=== PATIENT | female | born 1945 | race Caucasian/White ===

== ENCOUNTER 2021-04-27 16:18 | Inpatient (IN) | payer MEDICARE, MEDICAID, SELFPAY ==
[2021-04-27] VITALS (18 sets, daily range): BP systolic 96–202; BP diastolic 43–79; PULSE 62–79; RESP 16–18; TEMP 36.4–37.4; O2SAT 92–98; BMI 33.3; BMI 34.9
--- NOTE | 2021-04-27 16:55 | HMH.EDGENADL ---
ED Disposition Clinical Impression: COVID-19 virus infection Anemia Qualifiers: Anemia type: unspecified type Qualified Code(s): D64.9 - Anemia, unspecified Disposition: Admitted as Observation Condition on Discharge: Fair Referrals: Provider,Referral, [Primary Care Provider] - - Critical Care Critical Care Time: No Attestation: On 04/27/21, the high probability of a clinically significant, sudden or life threatening deterioration of the following system(s) required my full and direct attention, intervention and personal management. The time I documented below is in addition to time spent performing reported procedures but includes the following listed in this critical care notation. Medical Decision Making - Rudolph Inquiry Pt receiving controlled substance: No Vital Signs: 04/27/21 16:19 04/27/21 16:37 04/27/21 17:00 Temperature 98.6 F Temperature Source Oral Pulse Rate 71 71 Pulse Rate [Right Radial] 71 Respiratory Rate 18 16 16 Blood Pressure 138/47 L 149/53 H Blood Pressure [Right Arm] 138/47 L Blood Pressure Mean 79 85 Blood Pressure Mean [Right Arm] 77 Blood Pressure Source [Right Arm] Automatic Cuff Blood Pressure Position [Right Arm] Sitting 02 Sat by Pulse Oximetry 96 97 97 Oxygen Delivery Method Room Air - Lab Data Lab Results 04/27/21 16:54: WBC 6.4, RBC 2.71 L, Hgb 7.9 L, Hct 24.7 L, MCV 91.3, MCH 29.1, MCHC 31.9, RDW 16.7, Plt Count 342, MPV 8.6, Neut % (Auto) 60.8, Lymph % (Auto) 30.7, [place] % (Auto) 5.0, Eos % (Auto) 2.9, Baso % (Auto) 0.6, Neut # (Auto) 3.9, Lymph # (Auto) 2.0, [place] # (Auto) 0.3, Eos # (Auto) 0.2, Baso # (Auto) 0.0 04/27/21 16:54: Sodium 134 L, Potassium 4.4, Chloride 101, Carbon Dioxide 26, Anion Gap 11.4, BUN 19 H, Creatinine 0.90, Estimated Creat Clear 64, Estimated GFR 61, Est GFR ( Amer) 74, Glucose 196 H, Calcium 8.3 L, Total Bilirubin 0.5, AST 32, ALT 17, Alkaline Phosphatase 129 H, Total Protein 6.1 L, Albumin 3.4 L, Globulin 2.7, Albumin/Globulin Ratio 1.3 04/27/21 16:54: Crossmatch (AHG) See Detail 04/27/21 17:00: Stool Occult Blood Negative Result diagrams: 04/27/21 16:54 04/27/21 16:54 Orders (Tests/Meds): ED MEDICATIONS Generic Name Dose Route Start Last Admin Trade Name Nakia PRN Reason Stop Dose Admin Sodium Chloride 250 mls @ 25 mls/hr 04/27/21 17:30 Sod Chlor 0.9% 250ml Bag IV 04/28/21 17:29 .Q10H ZEFERINO ORDERS Category Date Time Status PRBC [Red Blood Cells] Stat BBK 04/27/21 16:54 Received Type and Screen Stat BBK 04/27/21 16:54 Received PT/PTT Stat Lab 04/27/21 16:54 Received - Physician Consults Physician Consulted: Escobar - present Time: 17:34 Reason -: Admission Comment/Response: Agrees to admit the patient to the hospital. We discussed the patient's clinical information, including history, exam, laboratory and radiology results and ED course. Per hospital procedure, I will write temporary bridge inpatient orders on the patient. Specific orders requested by the admitting physician: Transfuse 3 units packed red blood cells General Adult HPI - General Stated complaint: covid + anemia Time Seen by Provider: 04/27/21 16:55 - History of Present Illness HPI narrative: Brought in by ambulance from [facility] for anemia; Dr. Cody requested that she be transferred here and transfused 3 units of packed red blood cells. She was just admitted there yesterday. She says that she has had 2 recent admissions to [facility] in [facility]. Initially she had a broken shoulder which required surgery. She then went home and was returned because of dyspnea on exertion. She was diagnosed with pneumonia. She also says that when she was admitted to [facility] she was tested for COVID and it was positive. Prior to that she had not been diagnosed with COVID. She denies hematemesis. She has had dark stool, but says that she was started on iron a couple weeks a
--- NOTE | 2021-04-27 17:07 | PC.NURSE ---
assisted MD with rectal exam
[2021-04-27 17:09] LABS: Basophils % 0.6 % (0.1-2.0); Chloride 101 mmol/L (98-107); Eosinophils # 0.2 K/mm3 (0.0-0.4); Eosinophils % 2.9 % (0.1-12.0); Hematocrit 24.7 % (37.0-47.0); Hemoglobin 7.9 g/dL (12.2-16.2); Lymphocytes % 30.7 % (10-50); Mean Corpuscular HGB Conc 31.9 g/dL (31.8-35.4); Mean Corpuscular Hemoglobin 29.1 pg (27.0-31.2); Mean Corpuscular Volume 91.3 fl (81-99); Mean Platelet Volume 8.6 fl (7.4-10.4); Monocytes # 0.3 K/mm3 (0.1-1.0); Neutrophils # 3.9 K/mm3 (1.8-7.8); Neutrophils % 60.8 % (37.0-80.0); Platelet Count 342 K/mm3 (142-424); Potassium 4.4 mmoL/L (3.5-5.1); Red Blood Count 2.71 M/mm3 (4.20-5.40); Red Cell Distribution Width 16.7 % (11.5-17.5); Sodium 134 mmol/L (136-145); White Blood Count 6.4 K/mm3 (4.8-10.8)
[2021-04-27 17:12] LABS: Alanine Aminotransferase 17 U/L (12-78); Albumin Level 3.4 g/dl (3.5-5.0); Albumin/Globulin Ratio 1.3 (1.1-1.8); Alkaline Phosphatase 129 U/L (38-126); Anion Gap 11.4 mEq/L (5-15); Aspartate Amino Transferase 32 U/L (14-36); Bilirubin,Total 0.5 mg/dl (0.2-1.3); Blood Urea Nitrogen 19 mg/dl (7-17); Carbon Dioxide 26 mmol/L (22.0-30.0); Creatinine Clearance Estimated 64 mL/min (50-200); Estimated Glomerular Filt Rate 61 ml/min (>60); GFR (African American) 74 ML/MIN (>60); Globulin 2.7 g/dL (1.3-3.2); Total Protein,Serum 6.1 g/dl (6.3-8.2)
[2021-04-27 17:13] LABS: Calcium 8.3 mg/dl (8.4-10.2); Glucose 196 mg/dl (74-100)
[2021-04-27 17:33] LABS: Occult Blood,Stool Negative (Negative)
--- NOTE | 2021-04-27 17:34 | PC.NURSE ---
Dr. Cody at BS
--- NOTE | 2021-04-27 17:37 | PC.NURSE ---
notified bathhouse attendant of admission
--- NOTE | 2021-04-27 17:38 | XR_ITS ---
PROCEDURE INFORMATION: Exam: XR Chest Exam date and time: 04/27/2021 5:38 PM Age: 75 years old Clinical indication: Cough and shortness of breath; Additional info: Covid, pneumonia TECHNIQUE: Imaging protocol: XR of the chest. Views: 1 view. Total images: 1 COMPARISON: No relevant prior studies available. FINDINGS: Tubes, catheters and devices: Spinal stimulator lead pad in the midthoracic region without gross complication. Lungs: Pulmonary vasculature grossly normal. Mild interstitial prominence and faint ground-glass attenuation in the right perihilar and basilar distribution suspicious for pneumonia versus edema or atelectasis. Pleural spaces: No pleural effusion. No pneumothorax. Heart/Mediastinum: Heart size within normal limits for portable AP technique. No tracheal/mediastinal shift. Bones/joints: Bilateral shoulder arthroplasty hardware without gross complication. No acute osseous abnormalities are identified. Osteopenia. IMPRESSION: Interstitial and alveolar opacities in the right base and mid lung concerning for pneumonia versus edema or atelectasis.
[2021-04-27 17:40] LABS: Activated Partial Thrombo Time 28.3 seconds (22.8-30.6); INR 1.01 (0.9-1.1); Prothrombin Time 11.4 seconds (10.1-12.5)
[2021-04-27 17:54] LABS: Influenza A, PCR Not Detected (NotDetected); Influenza B, PCR Not Detected (NotDetected)
[2021-04-27 18:01] LABS: Lipase 80 U/L (23-300)
--- NOTE | 2021-04-27 18:06 | PC.NURSE ---
1740 bed assignment requested, room 201. all staff notified
[2021-04-27 18:12] LABS: Iron 28 ug/dL (37-170)
--- NOTE | 2021-04-27 18:16 | PC.NURSE ---
per lab approx 11 minutes left on pts covid swab.
--- NOTE | 2021-04-27 18:17 | PC.NURSE ---
per lab pt blood is ready for transfusion
[2021-04-27 18:21] LABS: Total Iron Binding Capacity 298 ug/dL (265-497)
[2021-04-27 18:29] LABS: Coronavirus 19, PCR Detected (NotDetected)
[2021-04-27 19:08] LABS: Vitamin B12 553 pg/mL (239-931)
[2021-04-27 19:12] LABS: Folate > 20.00 ng/mL
--- NOTE | 2021-04-27 20:32 | PC.NURSE ---
Report called to TEJA Logan at this time
--- NOTE | 2021-04-27 21:21 | PC.NURSE ---
PT ARRIVED TO FLOOR VIA STRETCHER FROM ED W/STAFF @ [id number]
[2021-04-28] VITALS (48 sets, daily range): BP systolic 83–226; BP diastolic 34–81; PULSE 51–94; RESP 0–35; TEMP 36.4–38.1; O2SAT 82–100; BMI 35.4; BMI 35.3
[2021-04-28 00:22] LABS: POC Glucose,Bedside 179 (70-110)
--- NOTE | 2021-04-28 00:35 | PC.NURSE ---
Patient receiving second unit of blood. Blood bag came apart from secondary and blood ran out onto floor. RN in room when it happened. Second bag completed, received 108 mls, lab updated. Techs clean room and third bag of blood began transfusing. Dr. Galan updated and orders to just give last bag of blood and recheck hemoglobin in morning.
[2021-04-28 05:40] LABS: Basophils # 0.1 K/mm3 (0-0.2); Basophils % 0.9 % (0.1-2.0); Eosinophils # 0.2 K/mm3 (0.0-0.4); Eosinophils % 2.4 % (0.1-12.0); Lymphocytes # 1.7 K/mm3 (0.7-4.5); Lymphocytes % 26.8 % (10-50); Mean Corpuscular HGB Conc 32.1 g/dL (31.8-35.4); Mean Corpuscular Volume 90.5 fl (81-99); Mean Platelet Volume 9.1 fl (7.4-10.4); Monocytes # 0.4 K/mm3 (0.1-1.0); Monocytes % 5.8 % (1.7-9.3); Neutrophils # 4.1 K/mm3 (1.8-7.8); Neutrophils % 64.1 % (37.0-80.0); Platelet Count 311 K/mm3 (142-424); Red Blood Count 3.73 M/mm3 (4.20-5.40); Red Cell Distribution Width 16.4 % (11.5-17.5); White Blood Count 6.4 K/mm3 (4.8-10.8)
[2021-04-28 05:43] LABS: Hematocrit 33.8 % (37.0-47.0); Hemoglobin 10.8 g/dL (12.2-16.2)
--- NOTE | 2021-04-28 07:00 | PC.NURSE ---
Patient resting in bed. VSS on room air. Received two full units and one partial unit of blood this shift. Recheck hemoglobin on chart. Pain treated with prn oxycodone. Up with sba to BSC. patient recently had left shoulder surgery and left arm is in sling.
--- NOTE | 2021-04-28 08:43 | PC.NURSE ---
Rapid Response called at this time.
--- NOTE | 2021-04-28 08:55 | XR_ITS ---
PROCEDURE INFORMATION: Exam: XR Chest Exam date and time: 04/28/2021 8:55 AM Age: 75 years old Clinical indication: Device placement; Other: Et tube placement; Additional info: Post intubation TECHNIQUE: Imaging protocol: XR of the chest. Views: 1 view. COMPARISON: CR XR CHEST PORTABLE 04/27/2021 5:56 PM FINDINGS: Tubes, catheters and devices: There is an endotracheal tube in place, the tip which projects 5.8 cm above the rudy. Spinal stimulator electrodes project over the thoracic spine. Defibrillator pads noted. Bones a there has been a canal wall canal wall up mastoidectomy. Middle ear ossicles appear surgically absent at low a high edema in a day Lungs: Bilateral pulmonary edema. Pleural spaces: Unremarkable. No pleural effusion. No pneumothorax. Heart/Mediastinum: Unremarkable. No cardiomegaly. Bones/joints: Reverse shoulder prostheses are noted. IMPRESSION: 1. Endotracheal tube tip projecting 5.8 cm above the rudy. 2. Bilateral pulmonary edema.
--- NOTE | 2021-04-28 09:10 | PC.NURSE ---
Report received from Neto Gupta RN. Pt is now an ICU pt and will be transferred to room 218. I am assuming care of pt as of now.
--- NOTE | 2021-04-28 09:58 | CT_ITS ---
PROCEDURE INFORMATION: Exam: CTA Chest With Contrast Exam date and time: 04/28/2021 9:58 AM Age: 75 years old Clinical indication: Dyspnea and shortness of breath; Additional info: Hypoxia// post intubation// covid positive- sudden onset of worse symtoms-- had to run scan twice to include entire chest due to lines caught and resp therapy having to manually ambo bag patient TECHNIQUE: Imaging protocol: Computed tomographic angiography of the chest with contrast. 3D rendering (Not supervised by radiologist): MIP and/or 3D reconstructed images were created by the technologist. Radiation optimization: All CT scans at this facility use at least one of these dose optimization techniques: automated exposure control; mA and/or kV adjustment per patient size (includes targeted exams where dose is matched to clinical indication); or iterative reconstruction. Contrast material: ISOVUE; Contrast volume: 70 ml; Contrast route: INTRAVENOUS (IV); COMPARISON: CR XR CHEST PORTABLE 04/28/2021 12:25 PM FINDINGS: Tubes, catheters and devices: The endotracheal tube is above the level of the rudy. Nasogastric tube within a fluid-filled stomach Pulmonary arteries: Normal. No pulmonary emboli. Aorta: Unremarkable. No aortic aneurysm. No aortic dissection. Other arteries: Flow within the visualized portions of the celiac artery and superior mesenteric artery. Lungs: See Pleural spaces finding. Pleural spaces: moderate pleural effusions with adjacent basilar consolidation versus atelectasis. Heart: See Lymph nodes finding. Lymph nodes: Numerous lymph nodes in the mediastinum including the aortic pulmonary window. Largest lymph node of approximately 2 cm. Small lymph nodes gastrohepatic ligament Liver: Fatty infiltration of the liver. Bones/joints: Shoulder arthroplasty on the left Soft tissues: Unremarkable. Other findings: No dissection. No visualized embolism as characterized to the proximal segmental level. . IMPRESSION: 1. No dissection. No visualized embolism as characterized to the proximal segmental level. Consider alternative form of imaging given the limited characterization of the arteries to the lung bases. 2. Moderate pleural effusions with adjacent basilar consolidation versus atelectasis. Extensive ground-glass airspace disease throughout the aerated lung parenchyma. Nonspecific. 3. Numerous lymph nodes in the mediastinum including the aortic pulmonary window. Largest lymph node of approximately 2 cm. Differential diagnosis of ground-glass disease includes infectious processes, interstitial lung disease and acute alveolar disease., Edema both cardiogenic and non-cardiogenic, hypersensitivity pneumonitis, viral diseases, amongst other etiologies. Covid within the differential diagnosis.
--- NOTE | 2021-04-28 10:06 | HMH.ACPN2 ---
Internal Medicine - PN: Subj *Date: 04/28/21 *Time: 10:06 Interval history: I responded to rapid call out for respiratory distress in COVID-19 positive F patient, 75yo. Per nursing staff, she received 3u prbc overnight. On arrival, patient was altered and cyanotic. SBP 210s, Spo2 65%. She has been having small amount of blood-tinged sputum prior to this. She has b/l rhonchi. Patient was started on 1L of IVF and intubated for airway protection, with conformation of ETT via auscultation and chest x-ray showing ETT in appropriate position. Patient had bilateral lung edema. At this time, differential diagnosis includes TRALI, ARDS secondary to COVID-19, PE. Patient was stabilized. Exam Vital signs and Labs for Last 24 Hours: Temp Pulse Resp BP Pulse Ox 98.4 F 75 18 154/56 H 90 L 04/28/21 04:30 04/28/21 04:30 04/28/21 04:30 04/28/21 04:30 04/28/21 04:30 Laboratory Results - last 24 hr 04/27/21 16:54: WBC 6.4, RBC 2.71 L, Hgb 7.9 L, Hct 24.7 L, MCV 91.3, MCH 29.1, MCHC 31.9, RDW 16.7, Plt Count 342, MPV 8.6, Neut % (Auto) 60.8, Lymph % (Auto) 30.7, [place] % (Auto) 5.0, Eos % (Auto) 2.9, Baso % (Auto) 0.6, Neut # (Auto) 3.9, Lymph # (Auto) 2.0, [place] # (Auto) 0.3, Eos # (Auto) 0.2, Baso # (Auto) 0.0 04/27/21 16:54: Sodium 134 L, Potassium 4.4, Chloride 101, Carbon Dioxide 26, Anion Gap 11.4, BUN 19 H, Creatinine 0.90, Estimated Creat Clear 64, Estimated GFR 61, Est GFR ( Amer) 74, Glucose 196 H, Calcium 8.3 L, Total Bilirubin 0.5, AST 32, ALT 17, Alkaline Phosphatase 129 H, Total Protein 6.1 L, Albumin 3.4 L, Globulin 2.7, Albumin/Globulin Ratio 1.3 04/27/21 16:54: PT 11.4, INR 1.01, APTT 28.3 04/27/21 16:54: Blood Type O Positive, Antibody Screen Negative, Crossmatch (AHG) See Detail 04/27/21 16:54: Iron 28 L, TIBC 298, Iron Saturation 9.13026 L, Ferritin 81.0, Vitamin B12 553, Folate > 20.00 04/27/21 16:54: Lipase 80 04/27/21 16:54: Blood Type Confirm O Positive 04/27/21 17:00: Stool Occult Blood Negative 04/27/21 17:36: SARS-CoV-2 (PCR) Detected A, Influenza A Untype (PCR) Not detected, Influenza Type B (PCR) Not detected 04/27/21 23:58: POC Glucose 179 H 04/28/21 05:29: WBC 6.4, RBC 3.73 L D, Hgb 10.8 L D, Hct 33.8 L, MCV 90.5, MCH 29.0, MCHC 32.1, RDW 16.4, Plt Count 311, MPV 9.1, Neut % (Auto) 64.1, Lymph % (Auto) 26.8, [place] % (Auto) 5.8, Eos % (Auto) 2.4, Baso % (Auto) 0.9, Neut # (Auto) 4.1, Lymph # (Auto) 1.7, [place] # (Auto) 0.4, Eos # (Auto) 0.2, Baso # (Auto) 0.1 I & O for Last 24 hours: Intake & Output 04/25/21 04/26/21 04/27/21 04/28/21 23:59 23:59 23:59 23:59 Intake Total 250 / 370 872 / 872 Balance 250 / 370 872 / 872 Weight 86.273 kg 87.226 kg
[2021-04-28 10:20] LABS: Microscopic, Urine URINE MICROSCOPIC (MICROSCOPIC)
[2021-04-28 10:23] LABS: Appearance,Urine CLEAR (Clear); Bilirubin,Urine Negative (Negative); Blood, Urine 1+ (Negative); Color,Urine YELLOW (Yellow); Glucose,Urine (UA) Negative (Negative); Ketones,Urine Negative (Negative); Leukocyte Esterase,Urine Negative (Negative); Nitrate,Urine Negative (Negative); Protein,Urine 3+ (Negative); Urobilinogen,Urine 0.2 EU/dl (0.2)
--- NOTE | 2021-04-28 10:30 | HMH.PHACONS ---
- Pharmacy Consult Date: 04/28/21 Time: 10:30 Referring provider: DR. GONZALEZ Reason for Consult:: VANCOMYCIN DOSING Allergies and ADEs:: Allergies Allergy/AdvReac Type Severity Reaction Status Date / Time Anesthetics - Amide Type - Allergy Verified 04/27/21 16:57 Select A ciprofloxacin Allergy Verified 04/27/21 16:57 fluconazole [From Diflucan] Allergy Verified 04/27/21 16:57 influenza A (H5N1) virus Allergy Verified 04/27/21 16:57 vaccine mo iodine Allergy Verified 04/27/21 16:57 Sulfa (Sulfonamide Allergy Verified 04/27/21 16:57 Antibiotics) sulfur [From Sulfur-8] Allergy Verified 04/27/21 16:57 losartan AdvReac Verified 04/27/21 16:57 ciprocinonide Allergy Uncoded 04/27/21 16:57 Home Medications:: Home Medications Medication Instructions Recorded Confirmed Type Albuterol Sulfate [Albuterol 2 puff IH Q4HP PRN 04/27/21 04/27/21 History Sulfate Hfa] Amitriptyline HCl [Elavil 25mg 25 mg PO HS 04/27/21 04/28/21 History tablet] Atorvastatin Calcium [Lipitor 20mg 20 mg PO HS 04/27/21 04/28/21 History Tab] Cetirizine HCl 10 mg PO DAILY 04/27/21 04/28/21 History Escitalopram Oxalate 20 mg PO DAILY 04/27/21 04/28/21 History Ferrous Sulfate 325 mg PO BID 04/27/21 04/28/21 History Fluticasone Propionate [Flonase 1 spr NS BID 04/27/21 04/28/21 History 50mcg nasal spray 16gm] Gabapentin 800 mg PO TID 04/27/21 04/28/21 History Icosapent Ethyl [Vascepa] 1 gm PO BID 04/27/21 04/28/21 History Levothyroxine Sodium 100 mcg PO HS 04/27/21 04/28/21 History [Levothyroxine 100mcg (0.1MG) Tab] Linagliptin [Tradjenta 5mg tablet] 5 mg PO DAILY 04/27/21 04/28/21 History Magnesium Oxide [Magox 400] 400 mg PO BID 04/27/21 04/28/21 History Memantine HCl [Namenda XR 7MG] 7 mg PO DAILY 04/27/21 04/28/21 History Methylnaltrexone [place] [Relistor] 150 mg PO DAILY 04/27/21 04/28/21 History Milnacipran HCl [Savella] 100 mg PO BID 04/27/21 04/28/21 History Mirabegron [Myrbetriq] 50 mg PO DAILY 04/27/21 04/28/21 History Montelukast Sodium [Singulair 10mg 10 mg PO PM 04/27/21 04/28/21 History tablet] Multivitamin 1 each PO DAILY 04/27/21 04/28/21 History Omeprazole [Omeprazole 40mg 40 mg PO BID 04/27/21 04/28/21 History Capsule] Oxycodone HCl 15 mg PO Q6HP PRN 04/27/21 04/27/21 History Plecanatide [Trulance] 3 mg PO DAILY 04/27/21 04/28/21 History Ropinirole HCl [Requip 1mg tablet] 1 mg PO TID 04/27/21 04/28/21 History Umeclidinium [place] [Incruse 62.5 mcg IH DAILY 04/27/21 04/28/21 History Ellipta] carvediloL [Coreg 25mg Tablet] 25 mg PO BID 04/27/21 04/28/21 History cycloSPORINE [Restasis] 1 each OP BID 04/27/21 04/28/21 History polyethylene glycoL 3350 [Miralax 17 gm PO DAILY 04/27/21 04/28/21 History 17gm Packet] Aspirin 81 mg PO DAILY 04/28/21 04/28/21 History Cholecalciferol (Vitamin D3) 1.25 mcg PO WEEKLY 04/28/21 04/28/21 History [Vitamin D3 50,000 unit Cap] Furosemide [Furosemide 40MG tAB*] 40 mg PO Q12HP PRN 04/28/21 04/28/21 History Height: 1.57 m Weight: 87.226 kg Laboratory Results:: Laboratory Results - last 24 hr 04/27/21 16:54: WBC 6.4, RBC 2.71 L, Hgb 7.9 L, Hct 24.7 L, MCV 91.3, MCH 29.1, MCHC 31.9, RDW 16.7, Plt Count 342, MPV 8.6, Neut % (Auto) 60.8, Lymph % (Auto) 30.7, [place] % (Auto) 5.0, Eos % (Auto) 2.9, Baso % (Auto) 0.6, Neut # (Auto) 3.9, Lymph # (Auto) 2.0, [place] # (Auto) 0.3, Eos # (Auto) 0.2, Baso # (Auto) 0.0 04/27/21 16:54: Sodium 134 L, Potassium 4.4, Chloride 101, Carbon Dioxide 26, Anion Gap 11.4, BUN 19 H, Creatinine 0.90, Estimated Creat Clear 64, Estimated GFR 61, Est GFR ( Amer) 74, Glucose 196 H, Calcium 8.3 L, Total Bilirubin 0.5, AST 32, ALT 17, Alkaline Phosphatase 129 H, Total Protein 6.1 L, Albumin 3.4 L, Globulin 2.7, Albumin/Globulin Ratio 1.3 04/27/21 16:54: PT 11.4, INR 1.01, APTT 28.3 04/27/21 16:54: Blood Type O Positive, Antibody Screen Negative, Crossmatch ([facility]) See Detail 04/27/21 16:54: Iron 28 L, TIBC 298
[2021-04-28 10:35] LABS: ABG HCO3 22.5 mmhg (22.0-26.0); ABG Oxygen Saturation 91 % (90-100); ABG PH 7.23 mmol/L (7.35-7.45); ABG PO2 73.7 mmhg (80-100); ABG TCO2 24.2 mmhg (23-27)
[2021-04-28 10:36] LABS: Allen's Test acceptable; Oxygen 100 %; PEEP 10; Tidal Volume 300; Vent Rate 20
[2021-04-28 10:37] LABS: ABG PCO2 54.6 mmhg (35.0-45.0); Lactate Arterial 1.2 mmol/L (0.4-2.0); Source rr
--- NOTE | 2021-04-28 10:44 | HMH.ITSTN ---
spoke to second floor nurse and patient was recently intubated and does not have a good IV line-- nurse said they are ordering a central line and will coordinate respiratory and nurse to come with her when they are ready for scan. I advised to call when ready.
--- NOTE | 2021-04-28 10:52 | HMH.HP ---
*Admission Date: 04/28/21 *Chief complaint: anemia/covid *History of present illness: Patient is a 75-year-old white female, newly admitted to [facility]. Her course preceding admission there included surgery on her left shoulder. Her postoperative course was complicated by dyspnea on exertion prompting further reevaluation. In the course of her reevaluation she was diagnosed with pneumonia. Subsequently diagnosed as COVID-positive. [facility] with a hemoglobin of 7.4. Patient had evidently been placed on p.o. iron. Patient was found in the emergency room to have some dark stool but occult blood was negative. My plan was to transfuse the patient to a stable level and evaluate further for GI blood loss. Patient has not had endoscopic studies. Earlier this morning patient had a rapid desaturation and emergency response was called. She was subsequently intubated. Pulmonary consultation was obtained for vent management. He was given 60 of Lasix initially, just ordered another 80. Chest film shows patchy changes. CTA is ordered and pending to rule out pulmonary embolism. Patient is now placed on cefepime, vancomycin, azithromycin, dexamethasone and baricitinib. Dr. Gamble is on board for consultation. [facility] History Medical History: Reports:: Diabetes Mellitus Type 2, Hypertension Denies:: Cancer, MRSA *Have you ever received a pneumonia vaccine?: No *Have you received a flu vaccine this season?: No Laterality Cases: Left: Arthroscopy Knee, Arthroscopy Shoulder Other Surgeries: Yes: Appendectomy, Other Amputation: No - *Social History Smoking Status: Former smoker # Packs/Day (cigarettes): 1 Alcohol Intake: never *Occupational Status:: retired *Travel in the last 8 weeks: None Family Hx:: Unable to obtain Review of Systems - Review of Systems Review of systems:: unable to obtain Meds Home Medications Medication Instructions Recorded Confirmed Type Albuterol Sulfate [Albuterol 2 puff IH Q4HP PRN 04/27/21 04/27/21 History Sulfate Hfa] Amitriptyline HCl [Elavil 25mg 25 mg PO HS 04/27/21 04/28/21 History tablet] Atorvastatin Calcium [Lipitor 20mg 20 mg PO HS 04/27/21 04/28/21 History Tab] Cetirizine HCl 10 mg PO DAILY 04/27/21 04/28/21 History Escitalopram Oxalate 20 mg PO DAILY 04/27/21 04/28/21 History Ferrous Sulfate 325 mg PO BID 04/27/21 04/28/21 History Fluticasone Propionate [Flonase 1 spr NS BID 04/27/21 04/28/21 History 50mcg nasal spray 16gm] Gabapentin 800 mg PO TID 04/27/21 04/28/21 History Icosapent Ethyl [Vascepa] 1 gm PO BID 04/27/21 04/28/21 History Levothyroxine Sodium 100 mcg PO HS 04/27/21 04/28/21 History [Levothyroxine 100mcg (0.1MG) Tab] Linagliptin [Tradjenta 5mg tablet] 5 mg PO DAILY 04/27/21 04/28/21 History Magnesium Oxide [Magox 400] 400 mg PO BID 04/27/21 04/28/21 History Memantine HCl [Namenda XR 7MG] 7 mg PO DAILY 04/27/21 04/28/21 History Methylnaltrexone [place] [Relistor] 150 mg PO DAILY 04/27/21 04/28/21 History Milnacipran HCl [Savella] 100 mg PO BID 04/27/21 04/28/21 History Mirabegron [Myrbetriq] 50 mg PO DAILY 04/27/21 04/28/21 History Montelukast Sodium [Singulair 10mg 10 mg PO PM 04/27/21 04/28/21 History tablet] Multivitamin 1 each PO DAILY 04/27/21 04/28/21 History Omeprazole [Omeprazole 40mg 40 mg PO BID 04/27/21 04/28/21 History Capsule] Oxycodone HCl 15 mg PO Q6HP PRN 04/27/21 04/27/21 History Plecanatide [Trulance] 3 mg PO DAILY 04/27/21 04/28/21 History Ropinirole HCl [Requip 1mg tablet] 1 mg PO TID 04/27/21 04/28/21 History Umeclidinium [place] [Incruse 62.5 mcg IH DAILY 04/27/21 04/28/21 History Ellipta] carvediloL [Coreg 25mg Tablet] 25 mg PO BID 04/27/21 04/28/21 History cycloSPORINE [Restasis] 1 each OP BID 04/27/21 04/28/21 History polyethylene glycoL 3350 [Miralax 17 gm PO DAILY 04/27/21 04/28/21 History 17gm Packet] Aspirin 81 mg PO DAILY 04/28/21 04/28/21 Histo
[2021-04-28 11:03] LABS: Bacteria,Urine Trace /lpf; RBC,Urine Occasional #/hpf (0-3)
[2021-04-28 11:41] LABS: C-Reactive Protein 7.8 mg/L (0-4)
[2021-04-28 11:55] LABS: D-Dimer 3.08 ug/mL (0.0-0.5)
--- NOTE | 2021-04-28 12:23 | P.CONPHA_ITS ---
[facility] Pharmacy VTE Monitoring - Patient Demographics Admission date: 04/28/21 Report Date: 04/28/21 Time: 12:23 Allergies/Adverse Reactions: Patient Allergies Anesthetics - Amide Type - Select A Allergy (Verified 04/27/21 16:57) ciprofloxacin Allergy (Verified 04/27/21 16:57) fluconazole [From Diflucan] Allergy (Verified 04/27/21 16:57) influenza A (H5N1) virus vaccine mo Allergy (Verified 04/27/21 16:57) iodine Allergy (Verified 04/27/21 16:57) Sulfa (Sulfonamide Antibiotics) Allergy (Verified 04/27/21 16:57) sulfur [From Sulfur-8] Allergy (Verified 04/27/21 16:57) losartan Adverse Reaction (Verified 04/27/21 16:57) ciprocinonide Allergy (Uncoded 04/27/21 16:57) Height: 1.57 m Weight: 87.226 kg Patient Problems: Current Active Problems Anemia (Acute) COVID-19 virus infection (Acute) Anemia (Acute) Respiratory failure with hypoxia (Acute) Diabetes (Chronic) Hypertension (Chronic) - VTE Risk Labs: VTE Related Lab Results Hgb 10.8 g/dL (12.2-16.2) L D 04/28/21 05:29 Hct 33.8 % (37.0-47.0) L 04/28/21 05:29 Plt Count 311 K/mm3 (142-424) 04/28/21 05:29 PT 11.4 seconds (10.1-12.5) 04/27/21 16:54 INR 1.01 (0.9-1.1) 04/27/21 16:54 APTT 28.3 seconds (22.8-30.6) 04/27/21 16:54 BUN 19 mg/dl (7-17) H 04/27/21 16:54 Creatinine 0.90 mg/dl (0.52-1.04) 04/27/21 16:54 Estimated Creat Clear 64 mL/min (50-200) 04/27/21 16:54 Was VTE Risk Assessment Performed: Yes VTE Score: 7 VTE Risk Level: Moderate Risk - Prophylaxis Types of VTE Prophylaxis: Pharmacological Pharmacologic Type: Enoxaparin (LOVENOX ORDERED)
--- NOTE | 2021-04-28 12:30 | PC.NURSE ---
BP 83/34. Levo gtt started at 5mcg/min.
--- NOTE | 2021-04-28 12:35 | HMH.GSCON ---
*Admission Date: 04/28/21 *Reason for consult:: Central venous catheter placement *History of present illness: This is a 75-year-old female seen in consultation from the primary service for central line placement. She has been treated for COVID-associated respiratory failure and has been found to have inadequate venous access. Review of Systems - Review of Systems Review of systems:: unable to obtain [facility] History Medical History: Reports:: Diabetes Mellitus Type 2, Hypertension Denies:: Cancer, MRSA *Have you ever received a pneumonia vaccine?: No *Have you received a flu vaccine this season?: No Laterality Cases: Left: Arthroscopy Knee, Arthroscopy Shoulder Other Surgeries: Yes: Appendectomy, Other Amputation: No - *Social History Smoking Status: Former smoker # Packs/Day (cigarettes): 1 Alcohol Intake: never *Occupational Status:: retired *Travel in the last 8 weeks: None Family Hx:: Unable to obtain Meds Home Medications Medication Instructions Recorded Confirmed Type Albuterol Sulfate [Albuterol 2 puff IH Q4HP PRN 04/27/21 04/27/21 History Sulfate Hfa] Amitriptyline HCl [Elavil 25mg 25 mg PO HS 04/27/21 04/28/21 History tablet] Atorvastatin Calcium [Lipitor 20mg 20 mg PO HS 04/27/21 04/28/21 History Tab] Cetirizine HCl 10 mg PO DAILY 04/27/21 04/28/21 History Escitalopram Oxalate 20 mg PO DAILY 04/27/21 04/28/21 History Ferrous Sulfate 325 mg PO BID 04/27/21 04/28/21 History Fluticasone Propionate [Flonase 1 spr NS BID 04/27/21 04/28/21 History 50mcg nasal spray 16gm] Gabapentin 800 mg PO TID 04/27/21 04/28/21 History Icosapent Ethyl [Vascepa] 1 gm PO BID 04/27/21 04/28/21 History Levothyroxine Sodium 100 mcg PO HS 04/27/21 04/28/21 History [Levothyroxine 100mcg (0.1MG) Tab] Linagliptin [Tradjenta 5mg tablet] 5 mg PO DAILY 04/27/21 04/28/21 History Magnesium Oxide [Magox 400] 400 mg PO BID 04/27/21 04/28/21 History Memantine HCl [Namenda XR 7MG] 7 mg PO DAILY 04/27/21 04/28/21 History Methylnaltrexone [place] [Relistor] 150 mg PO DAILY 04/27/21 04/28/21 History Milnacipran HCl [Savella] 100 mg PO BID 04/27/21 04/28/21 History Mirabegron [Myrbetriq] 50 mg PO DAILY 04/27/21 04/28/21 History Montelukast Sodium [Singulair 10mg 10 mg PO PM 04/27/21 04/28/21 History tablet] Multivitamin 1 each PO DAILY 04/27/21 04/28/21 History Omeprazole [Omeprazole 40mg 40 mg PO BID 04/27/21 04/28/21 History Capsule] Oxycodone HCl 15 mg PO Q6HP PRN 04/27/21 04/27/21 History Plecanatide [Trulance] 3 mg PO DAILY 04/27/21 04/28/21 History Ropinirole HCl [Requip 1mg tablet] 1 mg PO TID 04/27/21 04/28/21 History Umeclidinium [place] [Incruse 1 puff IH DAILY 04/27/21 04/28/21 History Ellipta] carvediloL [Coreg 25mg Tablet] 25 mg PO BID 04/27/21 04/28/21 History cycloSPORINE [Restasis] 1 each OP BID 04/27/21 04/28/21 History polyethylene glycoL 3350 [Miralax 17 gm PO DAILY 04/27/21 04/28/21 History 17gm Packet] Acetaminophen 500 mg PO Q8HP PRN 04/28/21 04/28/21 History Aspirin 81 mg PO DAILY 04/28/21 04/28/21 History Bisacodyl [Women's Gentle Laxative] 10 mg PO DAILYP PRN 04/28/21 04/28/21 History Cholecalciferol (Vitamin D3) 1.25 mcg PO WEEKLY 04/28/21 04/28/21 History [Vitamin D3 50,000 unit Cap] Fluticasone/Vilanterol [Breo 1 inh IH DAILY 04/28/21 04/28/21 History Ellipta 200-25 Mcg INH] Furosemide [Furosemide 40MG tAB*] 40 mg PO Q12HP PRN 04/28/21 04/28/21 History Sennosides [Senna] 8.6 mg PO HS 04/28/21 04/28/21 History hydrOXYzine HCL [Hydroxyzine HCl] 25 mg PO Q8HP PRN 04/28/21 04/28/21 History Allergies Allergy/AdvReac Type Severity Reaction Status Date / Time Anesthetics - Amide Type - Allergy Verified 04/27/21 16:57 Select A ciprofloxacin Allergy Verified 04/27/21 16:57 fluconazole [From Diflucan] Allergy Verified 04/27/21 16:57 influenza A (H5N1) virus Allergy Verified 04/27/21 16:57 vaccine mo iodine Allergy Verified 04/27/21 16:57 Sulfa (Sulfonami
--- NOTE | 2021-04-28 12:37 | HMH.OPNOTE ---
Date of procedure: 04/28/21 Pre-op Diagnosis:: Inadequate venous access Post-op Diagnosis:: Same Procedure performed:: Central line placement Surgeon:: Chano Flaherty MD Anesthesia: local Estimated blood loss (mL): 5 Operative findings:: Right subclavian vein easily accessed; however, guidewire could not be threaded Right internal jugular vein access achieved Catheter anchored at 16 cm Operative note:: After informed consent was obtained the patient was maintained in the supine position. Her right neck and chest was prepped and draped in a sterile fashion. After infiltration with local anesthetic a large bore needle was utilized to access the right subclavian vein. Although the vein was easily accessed, the guidewire could not be advanced. Additional attempts resulted in consistent inability to thread guidewire. The right internal jugular vein was easily accessed. The guidewire was placed in position. Utilizing a modified Seldinger technique a seven [place]i triple-lumen catheter was secured at 16 cm. All three ports flushed without difficulty. Chest x-ray pending. Condition: critical Disposition: no change Specimens:: None Complications:: No immediate. Chest x-ray pending.
--- NOTE | 2021-04-28 12:42 | PC.NURSE ---
0840- PT C/O SOB TO THIS RN. VITAL SIGNS OBTAINED AND 2LNC APPLIED. THIS RN COULD NOT DETERMINE AN ACCURATE SPO2. AFTER MULTIPLE DETERMINATIONS PT O2 WAS NOTED TO BE IN LOW 70'S. PT WAS DIAPHORETIC/TACHYPNEIC/HYPERTENSIVE SKIN COLOR WAS PALE AND PT APPEARED LETHARGIC AND WAS EXPERIENCING SYNCOPE. PT WAS ALSO NOTED TO BE COUGHING UP BLOOD TINGED SPUTUM. 0842- PT PLACED ON NON-REBREATHER MASK AND RAPID RESPONSE CALLED TO [facility] HEAD. 190/110 BP OBTAINED MANUALLY. 0843- RAPID RESPONSE CALLED OVER HEAD. PT TRANSFERRED TO BED FROM CHAIR WITH MAX ASSIST. 0850- ER STAFF ARRIVED. NEW IV ACCESS OBTAINED. 1LNS INFUSION STARTED VIA PRESSURE BAG. ABG DRAWN. BEGAN BAGGING PT WITH AMBU @ 100%. PT PREPARED FOR INTUBATION. 0855-TIMEOUT PERFORMED. 0905-20 ETOMIDATE AND 100 SUCCNYLCHOLINE ADMIN PER 0908- PT SUCCESSFULLY INTUBATED. 7.5ET 18@LIP. ABD AUSCULTATED AND CXRAY PERFORMED. 0910- PLACEMENT OF ET CONFIRMED VIA CXRAY BY ER MD REESE. MANUAL BP OBTAINED IN BOTH ARMS.
--- NOTE | 2021-04-28 12:51 | XR_ITS ---
PROCEDURE INFORMATION: Exam: XR Chest Exam date and time: 04/28/2021 12:51 PM Age: 75 years old Clinical indication: Device placement; Additional info: Central line placement TECHNIQUE: Imaging protocol: XR of the chest. Views: 1 view. COMPARISON: CR XR CHEST PORTABLE 04/28/2021 9:12 AM FINDINGS: Tubes, catheters and devices: The endotracheal tube is above the level of the rudy. Central venous catheter via the right jugular approach with the tip projecting over the superior vena cava. Lungs: diffuse interstitial and alveolar airspace disease. Pneumonia versus cardiogenic or noncardiogenic edema versus other alveolar filling process. Correlate. Pleural spaces: Unremarkable. No pleural effusion. No pneumothorax. Heart/Mediastinum: Unremarkable. No cardiomegaly. Bones/joints: Shoulder arthroplasty bilaterally IMPRESSION: Diffuse interstitial and alveolar airspace disease. Pneumonia versus cardiogenic or noncardiogenic edema versus other alveolar filling process. Correlate. Right cardio phrenic angle not included in the radiograph.
--- NOTE | 2021-04-28 13:15 | PC.NURSE ---
BP 186/60. Levo gtt turned OFF.
--- NOTE | 2021-04-28 17:15 | PC.NURSE ---
BP 85/37. Levo gtt turned back ON @ 5mcg/min
[2021-04-28 17:51] LABS: POC Glucose,Bedside 340 (70-110)
[2021-04-28 17:51] LABS: POC Glucose,Bedside 152 (70-110)
--- NOTE | 2021-04-28 18:30 | PC.NURSE ---
BP 116/56. Levo gtt decreased to 2mcg/min
--- NOTE | 2021-04-28 19:36 | DIET.NUTRFU ---
Consulted for TF. Patient was intubation and NG inserted. She dx of COVID with PNA, has hx of DM and HTN. Labs from 04/27: Na 134L, K 4.4, BUN 19H, Cr 0.9, Glucose 196H. Meds: insulin, decadron, pepcid, zithomycin, statin, vitamin C, zinc, Vancomycin, seens, propofol (110kcal). Started TF: Pulmocare at 20ml/hr with goal rate of 55ml/hr to provide 100% of needs at [id number], 79gm protein and 993ml free wtaer plus flush of 840ml with total fluid of 1833ml/day. CBW is 87kg with BMI of 35, no weight hx on file. [facility]
--- NOTE | 2021-04-28 22:35 | PC.NURSE ---
pt's bp 117/54 (75), turned levo drip off
--- NOTE | 2021-04-28 22:53 | PC.NURSE ---
pt's bp 100/44(62), restarted levo drip at 1
[2021-04-29] VITALS (30 sets, daily range): BP systolic 112–197; BP diastolic 39–73; PULSE 48–60; RESP 20–23; TEMP 35.8–36.6; O2SAT 96–100; BMI 35.2
--- NOTE | 2021-04-29 | XR_ITS ---
PROCEDURE INFORMATION: Exam: XR Chest Exam date and time: 04/29/2021 6:00 AM Age: 75 years old Clinical indication: Device placement; Ett placement (vent status); Additional info: Daily while intubated TECHNIQUE: Imaging protocol: XR of the chest. Views: 1 view. COMPARISON: CR XR CHEST PORTABLE 04/28/2021 12:25 PM FINDINGS: Tubes, catheters and devices: Endotracheal tube terminates approximately 4.4 cm above the rudy. NG tube passes into the stomach. Right IJ central venous catheter terminates in the region of the mid SVC. Thoracic nerve stimulator is in place. Lungs: Similar hazy bilateral airspace opacities. Pleural spaces: Small right pleural effusion. No pneumothorax. Heart/Mediastinum: Unremarkable. No cardiomegaly. Bones/joints: Bilateral reverse total shoulder arthroplasties. IMPRESSION: 1. Endotracheal tube terminates approximately 4.4 cm above the rudy. 2. Similar hazy bilateral airspace opacities, which may a combination of pulmonary edema and multilobar pneumonia. 3. Small right pleural effusion.
[2021-04-29 05:31] LABS: POC Glucose,Bedside 389 (70-110)
[2021-04-29 06:01] LABS: Basophils # 0.1 K/mm3 (0-0.2); Basophils % 1.2 % (0.1-2.0); Hematocrit 34.1 % (37.0-47.0); Hemoglobin 10.7 g/dL (12.2-16.2); Lymphocytes # 1.2 K/mm3 (0.7-4.5); Lymphocytes % 30.5 % (10-50); Mean Corpuscular HGB Conc 31.6 g/dL (31.8-35.4); Mean Corpuscular Hemoglobin 28.8 pg (27.0-31.2); Mean Corpuscular Volume 91.1 fl (81-99); Mean Platelet Volume 8.5 fl (7.4-10.4); Monocytes # 0.2 K/mm3 (0.1-1.0); Monocytes % 5.1 % (1.7-9.3); Neutrophils # 2.5 K/mm3 (1.8-7.8); Neutrophils % 63.1 % (37.0-80.0); Platelet Count 310 K/mm3 (142-424); Red Blood Count 3.74 M/mm3 (4.20-5.40); Red Cell Distribution Width 16.4 % (11.5-17.5); White Blood Count 3.9 K/mm3 (4.8-10.8)
[2021-04-29 06:08] LABS: Alanine Aminotransferase 13 U/L (12-78); Albumin/Globulin Ratio 1.2 (1.1-1.8); Alkaline Phosphatase 127 U/L (38-126); Anion Gap 10.6 mEq/L (5-15); Aspartate Amino Transferase 27 U/L (14-36); Bilirubin,Total 0.6 mg/dl (0.2-1.3); Blood Urea Nitrogen 25 mg/dl (7-17); Calcium 8.1 mg/dl (8.4-10.2); Carbon Dioxide 24 mmol/L (22.0-30.0); Chloride 103 mmol/L (98-107); Creatinine Clearance Estimated 68 mL/min (50-200); Estimated Glomerular Filt Rate 54 ml/min (>60); GFR (African American) 66 ML/MIN (>60); Globulin 2.5 g/dL (1.3-3.2); Glucose 338 mg/dl (74-100); Potassium 4.6 mmoL/L (3.5-5.1); Sodium 133 mmol/L (136-145); Total Protein,Serum 5.5 g/dl (6.3-8.2)
--- NOTE | 2021-04-29 06:31 | PC.NURSE ---
pt's bp at 0630 138/57 (84), stopped levo drip
[2021-04-29 07:40] LABS: ABG Base Excess -5.1 mmol/L (-2.4-2.3); ABG HCO3 20.8 mmhg (22.0-26.0); ABG Oxygen Saturation 100 % (90-100); ABG PCO2 40.1 mmhg (35.0-45.0); ABG PH 7.33 mmol/L (7.35-7.45); ABG PO2 380.9 mmhg (80-100)
[2021-04-29 07:41] LABS: Allen's Test Patient Unable; Oxygen 100% %; PEEP 10; Source Right Radial; Tidal Volume 360; Vent Rate 20
--- NOTE | 2021-04-29 09:51 | PC.NURSE ---
late entry for yesterday 04/28/21: daughter arrived to pts bedside shortly after intubation. Pts purse and cell phone given to daughter to take home.
--- NOTE | 2021-04-29 09:53 | PC.NURSE ---
pt with eyes open, nodding head yes and no to questions, and will follow commands. Fent gtt @ 50mcg/hr and Propofol gtt @ 50mcg/kg/min. Levo gtt has been OFF since before 7am.
[2021-04-29 12:00] LABS: POC Glucose,Bedside 353 (70-110)
--- NOTE | 2021-04-29 12:28 | HMH.ACPN2 ---
Internal Medicine - PN: Subj *Date: 04/29/21 *Time: 12:28 Interval history: Patient had a decent night, is becoming more alert. CTA of the chest demonstrated no pulmonary emboli. Is noted to have a pleural effusion, groundglass changes throughout and numerous lymph nodes in the mediastinum, largest is 2 cm. Her hemoglobin is stable at 10.7, good kidney function with a creatinine of 1.0. Elevated PO2 on ABG, pulmonary plans weaning down her FiO2 during the day. Blood sugars have been markedly elevated as a result of the dexamethasone, will increase the intensity of her sliding scale coverage. I discussed situation with her daughter. Exam Vital signs and Labs for Last 24 Hours: Temp Pulse Resp BP Pulse Ox 96.4 F L 58 L 20 171/64 H 100 04/29/21 08:00 04/29/21 10:00 04/29/21 10:00 04/29/21 10:00 04/29/21 10:00 Laboratory Results - last 24 hr 04/28/21 07:00: POC Glucose 152 H 04/28/21 16:36: POC Glucose 340 H* 04/28/21 20:30: POC Glucose 389 H* 04/29/21 05:44: POC Glucose 353 H* 04/29/21 05:50: WBC 3.9 L D, RBC 3.74 L, Hgb 10.7 L, Hct 34.1 L, MCV 91.1, MCH 28.8, MCHC 31.6 L, RDW 16.4, Plt Count 310, MPV 8.5, Neut % (Auto) 63.1, Lymph % (Auto) 30.5, [place] % (Auto) 5.1, Eos % (Auto) 0.0 L, Baso % (Auto) 1.2, Neut # (Auto) 2.5, Lymph # (Auto) 1.2, [place] # (Auto) 0.2, Eos # (Auto) 0.0, Baso # (Auto) 0.1 04/29/21 05:50: Sodium 133 L, Potassium 4.6, Chloride 103, Carbon Dioxide 24, Anion Gap 10.6, BUN 25 H D, Creatinine 1.00, Estimated Creat Clear 68, Estimated GFR 54 L, Est GFR ( Amer) 66, Glucose 338 H, Calcium 8.1 L, Total Bilirubin 0.6, AST 27, ALT 13, Alkaline Phosphatase 127 H, Total Protein 5.5 L, Albumin 3.0 L, Globulin 2.5, Albumin/Globulin Ratio 1.2 04/29/21 06:00: Specimen Source Right radial, O2 % 100%, ABG pH 7.33 L, ABG pCO2 40.1, ABG pO2 380.9 H, ABG HCO3 20.8 L, ABG Total CO2 22.0 L, ABG O2 Saturation 100, ABG Base Excess -5.1 L, Tru Test Patient unable, Vent Rate 20, Tidal Volume 360, PEEP 10 I & O for Last 24 hours: Intake & Output 04/26/21 04/27/21 04/28/21 04/29/21 23:59 23:59 23:59 23:59 Intake Total 250 / 370 2025 / 2025 570.792 / 570.792 Output Total 1390 / 1390 515 / 515 Balance 250 / 370 635 / 635 55.792 / 55.792 Weight 190 lb 3.2 oz 191 lb 12.835 oz 191 lb 2.252 oz - Constitutional obese, obtunded - *Routine HEENT Exam Head: Present: normocephalic Eye: Present: EOMI, PERRL ENT: Present: mucous membranes moist - *Routine Neck Exam Present: supple. Absent: lymphadenopathy - *Routine Respiratory Exam Present: patient mechanically ventilated - *Routine Cardiovascular Exam Present: RRR - *Routine Abdominal Exam Present: soft, normoactive bowel sounds. Absent: tenderness - *Routine Extremities Exam Absent: cyanosis, clubbing, edema - *Routine Skin Exam Present: warm. Absent: rash - *Routine Neurological Exam Present: altered mental status. 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
--- NOTE | 2021-04-29 13:22 | PC.NURSE ---
Propofol gtt decreased to 40mcg/kg/min and Fentanyl gtt decreased to 40mcg/hr.
[2021-04-29 13:47] LABS: POC Glucose,Bedside 298 (70-110)
[2021-04-29 17:05] LABS: POC Glucose,Bedside 291 (70-110)
--- NOTE | 2021-04-29 18:30 | PC.NURSE ---
Fentanyl gtt decreased to 25mcg/hr and Propofol gtt decreased to 25mcg/kg/min. Pt continues to follow commands, open eyes, and nods head yes or no to questions. Pt bathed this shift and sheets changed. No BM this shift despite bowel regimen meds. BUE edema noted L>R. Pt able to lift right arm on command. Will also wiggle toes. No skin breakdown noted. Normotensive this shift and Levophed gtt not utilized. Has been NSR or sinus shantell on tele. Current vent settings: AC, 40%, 20, 360, 10/-.
[2021-04-30] VITALS (27 sets, daily range): BP systolic 101–202; BP diastolic 44–86; PULSE 50–133; RESP 16–22; TEMP 36.4–37.4; O2SAT 93–100; BMI 35.2
[2021-04-30 05:51] LABS: POC Glucose,Bedside 220 (70-110)
--- NOTE | 2021-04-30 06:00 | XR_ITS ---
FINAL REPORT CLINICAL HISTORY: daily while intubated COMPARISON: April 29, 2021 FINDINGS: Support tubes and lines are stable. The heart size is normal. The mediastinum is normal. There are persistent bilateral pulmonary opacities. There is no pneumothorax. There is no osseous abnormality. IMPRESSION: Persistent bilateral pulmonary opacities likely representing bilateral pneumonia. Reviewed, Interpreted and Dictated by David Sorto III, MD Transcribed by Carlin Ashford Authenticated by David Sorto III, MD on 04/30/2021 07:24:46 AM [facility]
[2021-04-30 06:20] LABS: Basophils % 0.8 % (0.1-2.0); Eosinophils % 0.1 % (0.1-12.0); Hematocrit 30.8 % (37.0-47.0); Hemoglobin 9.9 g/dL (12.2-16.2); Lymphocytes % 18.9 % (10-50); Mean Corpuscular Hemoglobin 29.3 pg (27.0-31.2); Mean Corpuscular Volume 91.5 fl (81-99); Mean Platelet Volume 8.7 fl (7.4-10.4); Monocytes # 0.3 K/mm3 (0.1-1.0); Monocytes % 5.2 % (1.7-9.3); Platelet Count 283 K/mm3 (142-424); Red Blood Count 3.37 M/mm3 (4.20-5.40); Red Cell Distribution Width 16.5 % (11.5-17.5); White Blood Count 5.3 K/mm3 (4.8-10.8)
[2021-04-30 06:26] LABS: Alanine Aminotransferase 15 U/L (12-78); Albumin/Globulin Ratio 1.3 (1.1-1.8); Alkaline Phosphatase 102 U/L (38-126); Anion Gap 9.2 mEq/L (5-15); Aspartate Amino Transferase 47 U/L (14-36); Bilirubin,Total 0.4 mg/dl (0.2-1.3); Blood Urea Nitrogen 28 mg/dl (7-17); Calcium 7.9 mg/dl (8.4-10.2); Carbon Dioxide 23 mmol/L (22.0-30.0); Chloride 106 mmol/L (98-107); Cholesterol 134 mg/dl (140-200); Creatinine Clearance Estimated 68 mL/min (50-200); Estimated Glomerular Filt Rate 61 ml/min (>60); GFR (African American) 74 ML/MIN (>60); Globulin 2.4 g/dL (1.3-3.2); Glucose 206 mg/dl (74-100); HDL Cholesterol 27 mg/dl (40-60); Potassium 4.2 mmoL/L (3.5-5.1); Sodium 134 mmol/L (136-145); Total Protein,Serum 5.4 g/dl (6.3-8.2); Triglycerides 257 mg/dl (30-150); VLDL Cholesterol 51 mg/dL (0-40)
[2021-04-30 06:36] LABS: Direct LDL Cholesterol 66.33 mg/dL (100-129)
[2021-04-30 06:39] LABS: POC Glucose,Bedside 242 (70-110)
[2021-04-30 06:56] LABS: Thyroid Stimulating Hormone 2.35 uIU/mL (0.465-4.68)
[2021-04-30 08:01] LABS: ABG Base Excess -3.9 mmol/L (-2.4-2.3); ABG HCO3 20.5 mmhg (22.0-26.0); ABG Oxygen Saturation 96 % (90-100); ABG PCO2 32.4 mmhg (35.0-45.0); ABG PH 7.42 mmol/L (7.35-7.45); ABG PO2 87.5 mmhg (80-100); ABG TCO2 21.5 mmhg (23-27); Oxygen 30 %; PEEP 10; Source Right Radial; Tidal Volume 360; Vent Rate 20
--- NOTE | 2021-04-30 08:05 | PC.NURSE ---
RESP CARE NOTE: Pt placed into Spontaneous Breathing Trial with settings of 5/5 cmH2O and 30% FIO2. Will continue to monitor patient throughout the breathing trial.
--- NOTE | 2021-04-30 09:24 | SW/DCPLANNER ---
Addendum entered by Norma Andrade 05/02/21 13:26: I have notified Venessa Nav w/ [facility] that this patient will return today. This patient will not require an additional COVID swab. Addendum entered by Norma Andrade 05/02/21 10:13: Updated patient information has been faxed to [facility]. Original Note: This patient currently resides at [facility]. I spoke with Venessa Chopra from [facility] to confirm this patient is skilled at their facility. I will continue to follow up with Venessa until patient is medically stable for discharge. Patient information has been faxed to Venessa.
--- NOTE | 2021-04-30 09:43 | HMH.PULMCON ---
*Admission Date: 04/28/21 *Reason for consult:: Hypoxic respiratory failure, COVID-19 pneumonia *History of present illness: Patient intubated and sedated. Much of the history is obtained from chart review. 75-year-old female recent left shoulder surgery presented with worsening respiratory distress found to be profoundly anemic and COVID-19 positive along with hypoxic respiratory failure needing intubation mechanical ventilatory support and pulmonary was called for further management. [facility] History Medical History: Reports:: Diabetes Mellitus Type 2, Hypertension Denies:: Cancer, MRSA *Have you ever received a pneumonia vaccine?: No *Have you received a flu vaccine this season?: No Laterality Cases: Left: Arthroscopy Knee, Arthroscopy Shoulder Other Surgeries: Yes: Appendectomy, Other Amputation: No - *Social History Smoking Status: Former smoker # Packs/Day (cigarettes): 1 Alcohol Intake: never *Occupational Status:: retired *Travel in the last 8 weeks: None Family Hx:: Unable to obtain ROS - Review of Systems Review of systems:: unable to obtain Intubated. Meds Home Medications Medication Instructions Recorded Confirmed Type Albuterol Sulfate [Albuterol 2 puff IH Q4HP PRN 04/27/21 04/27/21 History Sulfate Hfa] Amitriptyline HCl [Elavil 25mg 25 mg PO HS 04/27/21 04/28/21 History tablet] Atorvastatin Calcium [Lipitor 20mg 20 mg PO HS 04/27/21 04/28/21 History Tab] Cetirizine HCl 10 mg PO DAILY 04/27/21 04/28/21 History Escitalopram Oxalate 20 mg PO DAILY 04/27/21 04/28/21 History Ferrous Sulfate 325 mg PO BID 04/27/21 04/28/21 History Fluticasone Propionate [Flonase 1 spr NS BID 04/27/21 04/28/21 History 50mcg nasal spray 16gm] Gabapentin 800 mg PO TID 04/27/21 04/28/21 History Icosapent Ethyl [Vascepa] 1 gm PO BID 04/27/21 04/28/21 History Levothyroxine Sodium 100 mcg PO HS 04/27/21 04/28/21 History [Levothyroxine 100mcg (0.1MG) Tab] Linagliptin [Tradjenta 5mg tablet] 5 mg PO DAILY 04/27/21 04/28/21 History Magnesium Oxide [Magox 400] 400 mg PO BID 04/27/21 04/28/21 History Memantine HCl [Namenda XR 7MG] 7 mg PO DAILY 04/27/21 04/28/21 History Methylnaltrexone [place] [Relistor] 150 mg PO DAILY 04/27/21 04/28/21 History Milnacipran HCl [Savella] 100 mg PO BID 04/27/21 04/28/21 History Mirabegron [Myrbetriq] 50 mg PO DAILY 04/27/21 04/28/21 History Montelukast Sodium [Singulair 10mg 10 mg PO PM 04/27/21 04/28/21 History tablet] Multivitamin 1 each PO DAILY 04/27/21 04/28/21 History Omeprazole [Omeprazole 40mg 40 mg PO BID 04/27/21 04/28/21 History Capsule] Oxycodone HCl 15 mg PO Q6HP PRN 04/27/21 04/27/21 History Plecanatide [Trulance] 3 mg PO DAILY 04/27/21 04/28/21 History Ropinirole HCl [Requip 1mg tablet] 1 mg PO TID 04/27/21 04/28/21 History Umeclidinium [place] [Incruse 1 puff IH DAILY 04/27/21 04/28/21 History Ellipta] carvediloL [Coreg 25mg Tablet] 25 mg PO BID 04/27/21 04/28/21 History cycloSPORINE [Restasis] 1 each OP BID 04/27/21 04/28/21 History polyethylene glycoL 3350 [Miralax 17 gm PO DAILY 04/27/21 04/28/21 History 17gm Packet] Acetaminophen 500 mg PO Q8HP PRN 04/28/21 04/28/21 History Aspirin 81 mg PO DAILY 04/28/21 04/28/21 History Bisacodyl [Women's Gentle Laxative] 10 mg PO DAILYP PRN 04/28/21 04/28/21 History Cholecalciferol (Vitamin D3) 1.25 mcg PO WEEKLY 04/28/21 04/28/21 History [Vitamin D3 50,000 unit Cap] Fluticasone/Vilanterol [Breo 1 inh IH DAILY 04/28/21 04/28/21 History Ellipta 200-25 Mcg INH] Furosemide [Furosemide 40MG tAB*] 40 mg PO Q12HP PRN 04/28/21 04/28/21 History Sennosides [Senna] 8.6 mg PO HS 04/28/21 04/28/21 History hydrOXYzine HCL [Hydroxyzine HCl] 25 mg PO Q8HP PRN 04/28/21 04/28/21 History Allergies Allergy/AdvReac Type Severity Reaction Status Date / Time Anesthetics - Amide Type - Allergy Verified 04/27/21 16:57 Select A ciprofloxacin Allergy Verified 04/27/21 16:57 fluconazole [From Diflucan] All
--- NOTE | 2021-04-30 09:45 | HMH.ACPN2 ---
Internal Medicine - PN: Subj *Date: 04/30/21 *Time: 08:50 Interval history: pt on breathing trial, follows all commands Exam Vital signs and Labs for Last 24 Hours: Temp Pulse Resp BP Pulse Ox 97.8 F 69 20 133/53 L 98 04/29/21 19:00 04/30/21 07:00 04/30/21 07:00 04/30/21 07:00 04/30/21 07:00 Laboratory Results - last 24 hr 04/29/21 05:44: POC Glucose 353 H* 04/29/21 13:19: POC Glucose 298 H 04/29/21 16:24: POC Glucose 291 H 04/29/21 21:37: POC Glucose 242 H 04/30/21 05:10: WBC 5.3 D, RBC 3.37 L, Hgb 9.9 L, Hct 30.8 L, MCV 91.5, MCH 29.3, MCHC 32.0, RDW 16.5, Plt Count 283, MPV 8.7, Neut % (Auto) 75.0, Lymph % (Auto) 18.9, [place] % (Auto) 5.2, Eos % (Auto) 0.1, Baso % (Auto) 0.8, Neut # (Auto) 4.0, Lymph # (Auto) 1.0, [place] # (Auto) 0.3, Eos # (Auto) 0.0, Baso # (Auto) 0.0 04/30/21 05:10: Sodium 134 L, Potassium 4.2, Chloride 106, Carbon Dioxide 23, Anion Gap 9.2, BUN 28 H, Creatinine 0.90, Estimated Creat Clear 68, Estimated GFR 61, Est GFR ( Amer) 74, Glucose 206 H D, Calcium 7.9 L, Total Bilirubin 0.4, AST 47 H D, ALT 15, Alkaline Phosphatase 102, Total Protein 5.4 L, Albumin 3.0 L, Globulin 2.4, Albumin/Globulin Ratio 1.3, Triglycerides 257 H, Cholesterol 134 L, LDL Cholesterol Direct 66.33 L, VLDL Cholesterol 51 H, HDL Cholesterol 27 L, Cholesterol/HDL Ratio 5.0 H, TSH 2.35 04/30/21 05:44: POC Glucose 220 H 04/30/21 06:00: Specimen Source Right radial, O2 % 30, ABG pH 7.42, ABG pCO2 32.4 L, ABG pO2 87.5, ABG HCO3 20.5 L, ABG Total CO2 21.5 L, ABG O2 Saturation 96, ABG Base Excess -3.9 L, Tru Test Accetable, Vent Rate 20, Tidal Volume 360, PEEP 10 I & O for Last 24 hours: Intake & Output 04/27/21 04/28/21 04/29/21 04/30/21 11:59 11:59 11:59 11:59 Intake Total 1122 / 1122 1723.792 / 3224.310 0796.292 / 1448.292 Output Total 400 / 650 1475 / 1505 1160 / 1160 Balance 722 / 472 248.792 / 218.792 288.292 / 288.292 Weight 192 lb 4.8 oz 191 lb 2.252 oz 191 lb 5.78 oz Microbiology Reports for the Last 24 Hours: Microbiology 04/28/21 09:53 Sputum - Endotracheal Tube Aspirate Gram Stain - Final - Constitutional no acute distress - *Routine HEENT Exam Head: Present: normocephalic Eye: Present: PERRL ENT: Present: mucous membranes moist - *Routine Neck Exam Present: supple. Absent: lymphadenopathy - *Routine Respiratory Exam Present: patient mechanically ventilated, CTA bilaterally - *Routine Cardiovascular Exam Present: RRR - *Routine Abdominal Exam Present: soft, normoactive bowel sounds. Absent: tenderness - *Routine Extremities Exam Absent: cyanosis, clubbing, edema - *Routine Skin Exam Present: warm. Absent: rash - *Routine Neurological Exam Present: alert, oriented X3 Assessment and Plan (1) Anemia Status: Acute Qualifiers: Qualified Code(s): D64.9 - Anemia, unspecified Category: Medical Code(s): D64.9 - Anemia, unspecified (2) Respiratory failure with hypoxia Status: Acute Qualifiers: Qualified Code(s): J96.91 - Respiratory failure, unspecified with hypoxia Category: Medical Code(s): J96.91 - Respiratory failure, unspecified with hypoxia (3) Diabetes Status: Chronic Category: Medical Code(s): E11.9 - Type 2 diabetes mellitus without complications (4) COVID-19 virus infection Status: Acute Category: Medical Code(s): U07.1 - COVID-19 (5) Hypertension Status: Chronic Qualifiers: Qualified Code(s): I10 - Essential (primary) hypertension Category: Medical Code(s): I10 - Essential (primary) hypertension (6) Poor venous access Status: Acute Category: Medical Code(s): I87.8 - Other specified disorders of veins - Assessment and plan all Dx Assessment and Plan for all problems:: rounded with dr ceballos all orders per dr ceballos poss extubation follow with pulm
--- NOTE | 2021-04-30 10:55 | PC.NURSE ---
RESP CARE NOTE: Pt extubated to a [address] Christianson v/o. Will continue to monitor.
--- NOTE | 2021-04-30 12:22 | CA_ITS ---
APPROVED REPORT EXAM: Comprehensive 2D, Doppler, and color-flow Echocardiogram Check Weigher: Oxana Herring RVT Ht: 5 ft 1 in Wt: 191lbs BSA: 1.85 BP: 133/53 mmHg Indications: COVID,S/P EXTUBATION NOW IN A-FIB VS SVT,ANEMIA HGB-9.9 HCT-30.8,DM,HTN TDS-PT VERY TACHY,FLAT ON BACK BEST EXAM GIVEN PT CONDITION 2D Dimensions LVOT 2.21 cm (M/F) 1.5-2.5 LA Volume 47.80 mL LA Volume Index 25.83 mL/m2 (M/F) 16-34 M-Mode Dimensions RVDd 2.54 cm (0.9-2.6) LA Diam 4.01 cm (1.9-4.0) LVDd 5.09 cm (3.5-5.7) Ao Diam 3.25 cm (2.0-3.7) LVDs 3.98 cm (3.5-5.7) IVSd 0.98 cm (0.6-1.1) PWd 1.03 cm (0.6-1.1) EF (Teich) 46.60% FS 23.50% EDV (Teich) 129.50 mL ESV (Teich) 69.20 mL Pulmonary Valve PV Peak Velocity 133.00 (50-150 cm/s) Tricuspid Valve TR P. Velocity 271.00 cm/s RAP Estimate 10.00 mmHg RVSP 39.30 mmHg Left Ventricle Technically difficult study because of the patient factors and poor acoustic windows. Left atrium is mildly enlarged, left ventricle is normal size, mild concentric left ventricular hypertrophy, visually estimated ejection fraction 55% with no regional wall motion abnormality. Endocardial surfaces are poorly visualized. Right Ventricle Right atrium and right ventricle are mildly enlarged with normal contractility. Aortic Valve Aortic valve is minimally thickened and fibrosed, there is no aortic stenosis or aortic insufficiency. Mitral Valve Mitral valve is grossly normal, there is trace mitral regurgitation. Tricuspid Valve Tricuspid valve is grossly normal, there is trace tricuspid regurgitation, tricuspid regurgitation jet velocity is inadequate for calculation of the right ventricular systolic pressure. Pulmonic Valve Pulmonic valve is poorly visualized. Great Vessels Aortic root is normal size. Inferior vena cava is poorly visualized. Pericardium No significant pericardial effusion noted. Conclusion 1. Biatrial enlargement, normal left ventricular size, mild concentric left ventricular hypertrophy, visually estimated ejection fraction 55% with no regional wall motion abnormality, endocardial surfaces are poorly visualized. Diastolic parameters are inconclusive. 2. Mildly enlarged right ventricle with normal contractility. 3. Trace mitral and tricuspid regurgitation. 4. No significant pericardial effusion noted. 5. Inferior vena cava is poorly visualized. Electronically signed by : Eliazar Hyde MD 04/30/2021 17:50:55
--- NOTE | 2021-04-30 12:25 | ECG_ITS ---
APPROVED REPORT Exam: Resting ECG HR:117 bpm ECG Measurements Heart Rate 117 AXES QRSd 76 QRS 49 QT 394 T 34 QTc 549 Conclusion Atrial fibrillation with rapid ventricular response with premature ventricular or aberrantly conducted complexes Abnormal ECG Electronically signed by : Justin Lee MD 05/01/2021 19:57:11
--- NOTE | 2021-04-30 12:26 | PC.NURSE ---
1200 Pt was noted to have a rhythm change and tachy in 120's 1209 Respiratory notified of stat EKG order r/t change 1210 Contacted Ilsa Don and notified of rhythm change, pt is noted to be in afib, no history of afib noted. pt BP is currently 202/81. new order for cardiology consult received. 1213 contacted cardiology clinic to notify of new consult order 1216 Ekg completed 1217 Received call from Francisco MONROY, stat echo order received. also shown completed EKG. 1228 new orders received from Francisco Mccain for pt to be placed on Amiodarone Drip.
[2021-04-30 13:23] LABS: POC Glucose,Bedside 245 (70-110)
--- NOTE | 2021-04-30 13:26 | HMH.CNCARD ---
History of Present Illness Consult date: 04/30/21 Requesting physician: Jonathan Cody Consult reason: atrial fibrillation Chief complaint: COVID pneumonia, A. fib Additional Medical History:: 1. Hypertension 2. Type 2 diabetes mellitus 3. Recent left shoulder surgery 4. Iron deficiency anemia status post transfusion to hemoglobin of 10.7, 04/2021 5. COVID infection, 04/2021 A. Intubation mechanical ventilation due to respiratory distress with hypoxemia, 04/28/2021. Extubated 04/30/2021 6. Paroxysmal SVT/atrial fibrillation, 04/30/2021 A. Amiodarone therapy started. B. CHADS-VASC score of 5 (age, sex, HTN, CHF, DM) 7. Ex smoker 8. Hypothyroidism, on replacement therapy History of present illness: Brought in by ambulance from [facility] for anemia; Dr. Cody requested that she be transferred here and transfused 3 units of packed red blood cells. She was just admitted there yesterday. She says that she has had 2 recent admissions to [facility] in [facility]. Initially she had a broken shoulder which required surgery. She then went home and was returned because of dyspnea on exertion. She was diagnosed with pneumonia. She also says that when she was admitted to [facility] she was tested for COVID and it was positive. Prior to that she had not been diagnosed with COVID. She denies hematemesis. She has had dark stool, but says that she was started on iron a couple weeks ago. She presumes that she was anemic, but she says it was never discussed with her. She did not have any sort of endoscopy or colonoscopy done. Prior to that she had not been on iron. Denies chest pain or shortness of breath. Denies fever. She has some abdominal pain right upper quadrant. The above per Dr. Sahu on admission on 04/27/2021. Pt was intubated on 04/28/2021 due to respiratory distress/hypoxemia. She required levophed for pressure support. Central line placed by Surgery due to poor peripheral access. Transfused to Hgb of 10.7. Pulmonary consulted for Vent management. Pt was extubated on 04/30/2021. Upon extubation, pt now having arrhythmias that appear to be paroxysmal SVT/A. fib with RVR despite restarting coreg 25 mg BID this AM. Discussed with Dr. Ravi and will start amiodarone. Information obtained from chart as patient is not reliable source at this time. [facility] History Medical History: Reports:: Diabetes Mellitus Type 2, Hypertension Denies:: Cancer, MRSA *Have you ever received a pneumonia vaccine?: No *Have you received a flu vaccine this season?: No Laterality Cases: Left: Arthroscopy Knee, Arthroscopy Shoulder Other Surgeries: Yes: Appendectomy, Other Amputation: No - *Social History Smoking Status: Former smoker # Packs/Day (cigarettes): 1 Alcohol Intake: never *Occupational Status:: retired *Travel in the last 8 weeks: None Family Hx:: Unable to obtain Meds Home Medications Medication Instructions Recorded Confirmed Type Albuterol Sulfate [Albuterol 2 puff IH Q4HP PRN 04/27/21 04/27/21 History Sulfate Hfa] Amitriptyline HCl [Elavil 25mg 25 mg PO HS 04/27/21 04/28/21 History tablet] Atorvastatin Calcium [Lipitor 20mg 20 mg PO HS 04/27/21 04/28/21 History Tab] Cetirizine HCl 10 mg PO DAILY 04/27/21 04/28/21 History Escitalopram Oxalate 20 mg PO DAILY 04/27/21 04/28/21 History Ferrous Sulfate 325 mg PO BID 04/27/21 04/28/21 History Fluticasone Propionate [Flonase 1 spr NS BID 04/27/21 04/28/21 History 50mcg nasal spray 16gm] Gabapentin 800 mg PO TID 04/27/21 04/28/21 History Icosapent Ethyl [Vascepa] 1 gm PO BID 04/27/21 04/28/21 History Levothyroxine Sodium 100 mcg PO HS 04/27/21 04/28/21 History [Levothyroxine 100mcg (0.1MG) Tab] Linagliptin [Tradjenta 5mg tablet] 5 mg PO DAILY 04/27/21 04/28/21 History Magnesium Oxide [Magox 400] 400 mg PO BID 04/27/21 04/28/21 History Memantine HCl [Namenda XR 7MG] 7 mg PO DAILY 04/27/21 04/28/21 History Methylnaltrexone
[2021-04-30 14:29] LABS: Triiodothryronine (T3) Uptake 37 % (23.5-40.5)
[2021-04-30 14:43] LABS: Thyroid Stimulating Hormone 2.41 uIU/mL (0.465-4.68)
--- NOTE | 2021-04-30 17:07 | PC.NURSE ---
ok to transfer pt out of ICU to [place] at 1617
--- NOTE | 2021-04-30 17:36 | PC.WOUNDNOTE ---
Bruising to bottom and r thigh
[2021-04-30 20:10] LABS: Vancomycin,Peak 15.1 ug/ml (11-39)
[2021-04-30 22:17] LABS: POC Glucose,Bedside 227 (70-110)
[2021-05-01] VITALS (12 sets, daily range): BP systolic 140–183; BP diastolic 54–74; PULSE 58–87; RESP 18–22; TEMP 36.9–39.4; O2SAT 96–100; BMI 34.9
[2021-05-01 05:39] LABS: POC Glucose,Bedside 178 (70-110)
[2021-05-01 05:45] LABS: POC Glucose,Bedside 263 (70-110)
--- NOTE | 2021-05-01 05:54 | PC.NURSE ---
pt has been restless t/o most of shift, has remained on 3L NC with O2 sats 93-99%, no complaints of pain or SOA, does complain of hunger, HR has been controlled at 64-95, romero draining cloudy yellow, strong smelling urine with sediment, 1900 mL out so far this shift, pt did have a temp of 103.0 at 0400 check, PRN medication given, on recheck temp was 100.2
--- NOTE | 2021-05-01 06:00 | XR_ITS ---
PROCEDURE INFORMATION: Exam: XR Chest Exam date and time: 05/01/2021 6:00 AM Age: 75 years old Clinical indication: Device placement; Ett placement (vent status); Patient HX: Recently extubated; Additional info: Daily while intubated TECHNIQUE: Imaging protocol: XR of the chest. Views: 1 view. COMPARISON: CR XR CHEST PORTABLE 04/30/2021 6:10 AM FINDINGS: Tubes, catheters and devices: Right IJ catheter with the tip in the distal SVC. Endotracheal tube is not identified. Lungs: Bilateral scattered heterogeneous pulmonary opacities, infectious/inflammatory and/or pulmonary edema. Pleural spaces: Probable small pleural effusions. Heart/Mediastinum: Unremarkable cardiomediastinal silhouette. Bones/joints: Bilateral shoulder arthroplasty. Other findings: Metallic densities projecting over the thoracic spine. IMPRESSION: 1. Bilateral scattered heterogeneous pulmonary opacities, infectious/inflammatory and/or pulmonary edema. Recommend imaging follow-up until complete resolution. 2. Endotracheal tube is not identified.
[2021-05-01 06:18] LABS: Basophils # 0.1 K/mm3 (0-0.2); Basophils % 1.3 % (0.1-2.0); Eosinophils % 0.1 % (0.1-12.0); Hematocrit 32.7 % (37.0-47.0); Hemoglobin 10.5 g/dL (12.2-16.2); Lymphocytes # 0.9 K/mm3 (0.7-4.5); Lymphocytes % 11.6 % (10-50); Mean Corpuscular HGB Conc 32.1 g/dL (31.8-35.4); Mean Corpuscular Volume 90.5 fl (81-99); Mean Platelet Volume 8.3 fl (7.4-10.4); Monocytes # 0.4 K/mm3 (0.1-1.0); Monocytes % 5.6 % (1.7-9.3); Neutrophils # 6.1 K/mm3 (1.8-7.8); Neutrophils % 81.4 % (37.0-80.0); Platelet Count 328 K/mm3 (142-424); Red Blood Count 3.61 M/mm3 (4.20-5.40); Red Cell Distribution Width 16.7 % (11.5-17.5); White Blood Count 7.5 K/mm3 (4.8-10.8)
[2021-05-01 06:26] LABS: Alanine Aminotransferase 18 U/L (12-78); Albumin Level 3.5 g/dl (3.5-5.0); Albumin/Globulin Ratio 1.3 (1.1-1.8); Alkaline Phosphatase 114 U/L (38-126); Anion Gap 12.1 mEq/L (5-15); Aspartate Amino Transferase 51 U/L (14-36); Bilirubin,Total 0.7 mg/dl (0.2-1.3); Blood Urea Nitrogen 25 mg/dl (7-17); Calcium 8.6 mg/dl (8.4-10.2); Carbon Dioxide 25 mmol/L (22.0-30.0); Chloride 104 mmol/L (98-107); Creatinine Clearance Estimated 67 mL/min (50-200); Estimated Glomerular Filt Rate 82 ml/min (>60); GFR (African American) 99 ML/MIN (>60); Globulin 2.7 g/dL (1.3-3.2); Glucose 159 mg/dl (74-100); Potassium 3.1 mmoL/L (3.5-5.1); Sodium 138 mmol/L (136-145); Total Protein,Serum 6.2 g/dl (6.3-8.2)
--- NOTE | 2021-05-01 07:59 | HMH.PNCARD ---
Subjective Date: 05/01/21 Time: 08:00 Principal diagnosis: A. fib with RVR, COVID Interval history: 75-year-old white female in bed in no acute distress. Amiodarone continues on maintenance dosing with telemetry showing sinus rhythm in the 70 bpm range. Patient is aware is 2021 but is not aware of who the president is or where she is currently located. Echocardiogram shows mild concentric LVH with normal LV size and function and mild valvular disease. Exam Vital signs and Labs for Last 24 Hours: Temp Pulse Resp BP Pulse Ox 100.2 F H 66 22 159/54 H 97 05/01/21 06:00 05/01/21 06:00 05/01/21 06:00 05/01/21 06:00 05/01/21 06:00 Laboratory Results - last 24 hr 04/30/21 06:00: Specimen Source Right radial, O2 % 30, ABG pH 7.42, ABG pCO2 32.4 L, ABG pO2 87.5, ABG HCO3 20.5 L, ABG Total CO2 21.5 L, ABG O2 Saturation 96, ABG Base Excess -3.9 L, Tru Test Accetable, Vent Rate 20, Tidal Volume 360, PEEP 10 04/30/21 13:03: POC Glucose 245 H 04/30/21 14:15: Vancomycin Trough 16.0 H 04/30/21 16:09: TSH 2.41, Free T4 Index 3.0 L, Thyroxine (T4) 8.0, T3 Uptake 37 04/30/21 16:16: POC Glucose 263 H 04/30/21 18:56: Vancomycin Peak 15.1 04/30/21 21:57: POC Glucose 227 H 05/01/21 05:10: WBC 7.5 D, RBC 3.61 L, Hgb 10.5 L, Hct 32.7 L, MCV 90.5, MCH 29.0, MCHC 32.1, RDW 16.7, Plt Count 328, MPV 8.3, Neut % (Auto) 81.4 H, Lymph % (Auto) 11.6, [place] % (Auto) 5.6, Eos % (Auto) 0.1, Baso % (Auto) 1.3, Neut # (Auto) 6.1, Lymph # (Auto) 0.9, [place] # (Auto) 0.4, Eos # (Auto) 0.0, Baso # (Auto) 0.1 05/01/21 05:10: Sodium 138, Potassium 3.1 L D, Chloride 104, Carbon Dioxide 25, Anion Gap 12.1, BUN 25 H, Creatinine 0.70 D, Estimated Creat Clear 67, Estimated GFR 82, Est GFR ( Amer) 99 D, Glucose 159 H D, Calcium 8.6, Total Bilirubin 0.7, AST 51 H, ALT 18, Alkaline Phosphatase 114, Total Protein 6.2 L, Albumin 3.5 D, Globulin 2.7, Albumin/Globulin Ratio 1.3 05/01/21 05:28: POC Glucose 178 H I & O for Last 24 hours: Intake & Output 04/28/21 04/29/21 04/30/21 05/01/21 11:59 11:59 11:59 11:59 Intake Total 1122 / 1122 1723.792 / 3378.687 0459.292 / 1796.292 710 / 710 Output Total 400 / 650 1475 / 1505 2460 / 2720 3430 / 3430 Balance 722 / 472 248.792 / 218.792 -663.708 / -923.708 -2720 / -2720 Weight 192 lb 4.8 oz 191 lb 2.252 oz 191 lb 5.78 oz 190 lb 0.615 oz Microbiology Reports for the Last 24 Hours: Microbiology 04/28/21 11:12 Blood Blood Culture - Preliminary NO GROWTH AFTER 48 HOURS 04/28/21 11:12 Blood Blood Culture - Preliminary NO GROWTH AFTER 48 HOURS - Constitutional no acute distress - *Routine Respiratory Exam Present: CTA bilaterally - *Routine Cardiovascular Exam Present: RRR - *Routine Neurological Exam Present: alert Progress Note: A&P (1) Anemia Status: Acute (2) Respiratory failure with hypoxia Status: Acute (3) Diabetes Status: Chronic (4) COVID-19 virus infection Status: Acute (5) Hypertension Status: Chronic (6) Poor venous access Status: Acute (7) PAF (paroxysmal atrial fibrillation) Status: Acute Assessment and plan: Currently in normal sinus rhythm. We will finish the amiodarone loading around 2 PM today we will start oral amiodarone 400 mg today and then 400 mg twice daily starting tomorrow. (8) Hypokalemia Status: Acute Assessment and Plan for All Diagnoses:: 1. PAF, Continue amiodarone loading by IV and then switch to oral amiodarone later today. 2. Elevated [id number] score with recommendation for anticoagulation prior to discharge but patient's baseline mental status is unclear and she is currently not oriented. Continued monitoring on telemetry with Lovenox prophylaxis for now. 3. Hypokalemia, continue continue supplementation 4. We will reduce bisoprolol to 5 mg twice daily.
--- NOTE | 2021-05-01 08:33 | HMH.ACPN2 ---
Internal Medicine - PN: Subj *Date: 05/01/21 *Time: 09:21 Interval history: 75-year-old female patient resting in bed quietly, amiodarone drip continues heart rate in the 70s in sinus rhythm. Current oxygenation 97% on 3 L per nasal cannula. She denies any chest pain or respiratory distress during the night Exam Vital signs and Labs for Last 24 Hours: Temp Pulse Resp BP Pulse Ox 100.2 F H 66 22 159/54 H 97 05/01/21 06:00 05/01/21 06:00 05/01/21 06:00 05/01/21 06:00 05/01/21 06:00 Laboratory Results - last 24 hr 04/30/21 13:03: POC Glucose 245 H 04/30/21 14:15: Vancomycin Trough 16.0 H 04/30/21 16:09: TSH 2.41, Free T4 Index 3.0 L, Thyroxine (T4) 8.0, T3 Uptake 37 04/30/21 16:16: POC Glucose 263 H 04/30/21 18:56: Vancomycin Peak 15.1 04/30/21 21:57: POC Glucose 227 H 05/01/21 05:10: WBC 7.5 D, RBC 3.61 L, Hgb 10.5 L, Hct 32.7 L, MCV 90.5, MCH 29.0, MCHC 32.1, RDW 16.7, Plt Count 328, MPV 8.3, Neut % (Auto) 81.4 H, Lymph % (Auto) 11.6, [place]ck[place] % (Auto) 5.6, Eos % (Auto) 0.1, Baso % (Auto) 1.3, Neut # (Auto) 6.1, Lymph # (Auto) 0.9, [place]ck[place] # (Auto) 0.4, Eos # (Auto) 0.0, Baso # (Auto) 0.1 05/01/21 05:10: Sodium 138, Potassium 3.1 L D, Chloride 104, Carbon Dioxide 25, Anion Gap 12.1, BUN 25 H, Creatinine 0.70 D, Estimated Creat Clear 67, Estimated GFR 82, Est GFR ( Amer) 99 D, Glucose 159 H D, Calcium 8.6, Total Bilirubin 0.7, AST 51 H, ALT 18, Alkaline Phosphatase 114, Total Protein 6.2 L, Albumin 3.5 D, Globulin 2.7, Albumin/Globulin Ratio 1.3 05/01/21 05:28: POC Glucose 178 H I & O for Last 24 hours: Intake & Output 04/28/21 04/29/21 04/30/21 05/01/21 23:59 23:59 23:59 23:59 Intake Total 2024 / 2024 1801.084 / 1817.084 816 / 816 460 / 460 Output Total 1390 / 1390 1230 / 1285 3245 / 4545 1900 / 1900 Balance 635 / 635 571.084 / 532.084 -2429 / -3729 -1440 / -1440 Weight 191 lb 12.835 oz 191 lb 2.252 oz 191 lb 5.78 oz 190 lb 0.615 oz Microbiology Reports for the Last 24 Hours: Microbiology 04/28/21 11:12 Blood Blood Culture - Preliminary NO GROWTH AFTER 48 HOURS 04/28/21 11:12 Blood Blood Culture - Preliminary NO GROWTH AFTER 48 HOURS - Constitutional no acute distress - *Routine HEENT Exam Head: Present: normocephalic Eye: Present: EOMI ENT: Present: mucous membranes moist - *Routine Neck Exam Present: trachea midline. Absent: tracheal deviation - *Routine Respiratory Exam Present: rhonchi. Absent: accessory muscle use - *Routine Cardiovascular Exam Present: RRR - *Routine Abdominal Exam Present: soft, normoactive bowel sounds. Absent: firm - *Routine Extremities Exam Present: edema, full ROM, pulses intact. Absent: cyanosis, clubbing - *Routine Skin Exam Present: wounds Comments: L Shoulder Drsg C/D/I - *Routine Neurological Exam Present: alert. Absent: motor deficit - Routine Psychiatric Exam Present: normal affect. Absent: auditory hallucinations Assessment and Plan (1) Anemia Status: Acute Qualifiers: Anemia type: unspecified type Qualified Code(s): D64.9 - Anemia, unspecified Category: Medical Code(s): D64.9 - Anemia, unspecified (2) Respiratory failure with hypoxia Status: Acute Qualifiers: Chronicity: unspecified Qualified Code(s): J96.91 - Respiratory failure, unspecified with hypoxia Category: Medical Code(s): J96.91 - Respiratory failure, unspecified with hypoxia (3) Diabetes Status: Chronic Qualifiers: Diabetes mellitus termite control servicer insulin use: without fpc use Category: Medical Code(s): E11.9 - Type 2 diabetes mellitus without complications (4) COVID-19 virus infection Status: Acute Category: Medical Code(s): U07.1 - COVID-19 (5) Hypertension Status: Chronic Qualifiers: Hypertension type: unspecified Qualified Code(s): I10 - Essential (primary) hypertension Category: Medical Code(s): I10 - Essential
--- NOTE | 2021-05-01 08:36 | DIET.NUTRFU ---
Spoke to nursing during rounds today, patient passed bedside swallow, we extubation yesterday. Safe for oral diet, kitchen was notified.
--- NOTE | 2021-05-01 09:31 | HMH.ACPN2 ---
Internal Medicine - PN: Subj *Date: 05/01/21 *Time: 09:31 Exam Vital signs and Labs for Last 24 Hours: Temp Pulse Resp BP Pulse Ox 100.2 F H 66 22 159/54 H 97 05/01/21 06:00 05/01/21 06:00 05/01/21 06:00 05/01/21 06:00 05/01/21 06:00 Laboratory Results - last 24 hr 04/30/21 13:03: POC Glucose 245 H 04/30/21 14:15: Vancomycin Trough 16.0 H 04/30/21 16:09: TSH 2.41, Free T4 Index 3.0 L, Thyroxine (T4) 8.0, T3 Uptake 37 04/30/21 16:16: POC Glucose 263 H 04/30/21 18:56: Vancomycin Peak 15.1 04/30/21 21:57: POC Glucose 227 H 05/01/21 05:10: WBC 7.5 D, RBC 3.61 L, Hgb 10.5 L, Hct 32.7 L, MCV 90.5, MCH 29.0, MCHC 32.1, RDW 16.7, Plt Count 328, MPV 8.3, Neut % (Auto) 81.4 H, Lymph % (Auto) 11.6, [place] % (Auto) 5.6, Eos % (Auto) 0.1, Baso % (Auto) 1.3, Neut # (Auto) 6.1, Lymph # (Auto) 0.9, [place] # (Auto) 0.4, Eos # (Auto) 0.0, Baso # (Auto) 0.1 05/01/21 05:10: Sodium 138, Potassium 3.1 L D, Chloride 104, Carbon Dioxide 25, Anion Gap 12.1, BUN 25 H, Creatinine 0.70 D, Estimated Creat Clear 67, Estimated GFR 82, Est GFR ( Amer) 99 D, Glucose 159 H D, Calcium 8.6, Total Bilirubin 0.7, AST 51 H, ALT 18, Alkaline Phosphatase 114, Total Protein 6.2 L, Albumin 3.5 D, Globulin 2.7, Albumin/Globulin Ratio 1.3 05/01/21 05:28: POC Glucose 178 H I & O for Last 24 hours: Intake & Output 04/28/21 04/29/21 04/30/2105/01/22 23:59 23:59 23:59 23:59 Intake Total 2024 1801.084 / 1817.084 816 / 816 460 / 460 Output Total 1390 / 1390 1230 / 1285 3245 / 4545 1900 / 1900 Balance 635 / 635 571.084 / 532.084 -2429 / -3729 -1440 / -1440 Weight 87 kg 86.7 kg 86.8 kg 86.2 kg Microbiology Reports for the Last 24 Hours: Microbiology 04/28/21 11:12 Blood Blood Culture - Preliminary NO GROWTH AFTER 48 HOURS 04/28/21 11:12 Blood Blood Culture - Preliminary NO GROWTH AFTER 48 HOURS Assessment and Plan (1) Anemia Status: Acute Qualifiers: Anemia type: unspecified type Qualified Code(s): D64.9 - Anemia, unspecified Category: Medical Code(s): D64.9 - Anemia, unspecified (2) Respiratory failure with hypoxia Status: Acute Qualifiers: Chronicity: unspecified Qualified Code(s): J96.91 - Respiratory failure, unspecified with hypoxia Category: Medical Code(s): J96.91 - Respiratory failure, unspecified with hypoxia (3) Diabetes Status: Chronic Qualifiers: Diabetes mellitus detention insulin use: without detention use Category: Medical Code(s): E11.9 - Type 2 diabetes mellitus without complications (4) COVID-19 virus infection Status: Acute Category: Medical Code(s): U07.1 - COVID-19 (5) Hypertension Status: Chronic Qualifiers: Hypertension type: unspecified Qualified Code(s): I10 - Essential (primary) hypertension Category: Medical Code(s): I10 - Essential (primary) hypertension (6) Poor venous access Status: Acute Category: Medical Code(s): I87.8 - Other specified disorders of veins (7) PAF (paroxysmal atrial fibrillation) Status: Acute Category: Medical Code(s): I48.0 - Paroxysmal atrial fibrillation (8) Hypokalemia Status: Acute Category: Medical Code(s): E87.6 - Hypokalemia The patient's infection will respond to the chosen ABx?: Yes (SPUTUM PENDING, HERE FOR COVID PNEUMONIA) Is the patient receiving the right drug, dose, and route?: Yes Could a more targeted ABx be ordered?: No
--- NOTE | 2021-05-01 10:38 | PC.NURSE ---
spoke with celia porter who stated patient could come out of stepdown once off of amiodarone drip. verified this with dr hendrix office at this time who agreed patient would be fine to come out of stepdown
--- NOTE | 2021-05-01 11:14 | PC.NURSE ---
Report given to Amelia Casillas RN who assumes care of patient at this time
--- NOTE | 2021-05-01 11:33 | HMH.PULMPN ---
Internal Medicine - PN: Subj *Date: 05/01/21 *Time: 11:34 Interval history: No acute respiratory events overnight. Patient successfully extubated to nasal cannula. Exam - Constitutional Constitutional:: Present: no acute distress, comfortable - HENMT Exam HENMT: Present: normocephalic, atraumatic - Eye Exam Eyes:: Present: normal appearance both eyes and related structures - Neck Exam Neck:: Present: normal visual inspection - Respiratory Exam Respiratory:: Present: able to speak in complete sentences, crackles. Absent: wheezing - Cardiovascular Exam Cardiac:: Present: S1, S2. Absent: regular rhythm - GI Exam GI:: Present: soft - Skin Exam Skin: Present: warm, no rash - Neurological Exam Neurological: Present: awake. Absent: alert, normal cognition - Extremities Exam Extremities: Present: no cyanosis, no clubbing, no edema Assessment and Plan (1) Anemia Status: Acute Qualifiers: Anemia type: unspecified type Qualified Code(s): D64.9 - Anemia, unspecified Category: Medical Code(s): D64.9 - Anemia, unspecified (2) Respiratory failure with hypoxia Status: Acute Qualifiers: Chronicity: unspecified Qualified Code(s): J96.91 - Respiratory failure, unspecified with hypoxia Category: Medical Code(s): J96.91 - Respiratory failure, unspecified with hypoxia (3) Diabetes Status: Chronic Qualifiers: Diabetes mellitus terminal makeup operator insulin use: without terminal makeup operator use Category: Medical Code(s): E11.9 - Type 2 diabetes mellitus without complications (4) COVID-19 virus infection Status: Acute Category: Medical Code(s): U07.1 - COVID-19 (5) Hypertension Status: Chronic Qualifiers: Hypertension type: unspecified Qualified Code(s): I10 - Essential (primary) hypertension Category: Medical Code(s): I10 - Essential (primary) hypertension (6) Poor venous access Status: Acute Category: Medical Code(s): I87.8 - Other specified disorders of veins (7) PAF (paroxysmal atrial fibrillation) Status: Acute Category: Medical Code(s): I48.0 - Paroxysmal atrial fibrillation (8) Hypokalemia Status: Acute Category: Medical Code(s): E87.6 - Hypokalemia - Assessment and plan all Dx Assessment and Plan for all problems:: #Hypoxic respiratory failure: #COVID-19 pneumonia: Recent shoulder surgery presented with respiratory failure and anemia. Worsening respiratory distress and was eventually needing mechanical ventilatory support. No evidence of leukocytosis. Renal function stable. CTA on admission did not show any evidence of pulmonary embolism. Showed pathcy airspace disease Patient was initiated on vancomycin and cefepime on admission. Along with COVID protocol. Interval update: Patient respiratory significantly improved, extubated to nasal cannula 3 L yesterday. Antibiotics were also weaned to cefepime to complete a 7-day course. Patient denies any smoking history, denies any prior respiratory complaints or inhaler use. Patient awake but appears confused this morning. Plan: -Recommend speech and swallow evaluation. Patient appears to be high risk for aspiration. -Continue nasal cannula oxygen supplementation to maintain O2 saturation goal of 88% and above -Cefepime to complete a total of 7-day course. Follow with final cultures, blood and sputum cultures no growth so far -Continue dexamethasone and baricitinib. -Continue DuoNebs every 6 hours as needed. #Thank for involving pulmonary in this patient care. We will continue to follow.
[2021-05-01 12:08] LABS: POC Glucose,Bedside 409 (70-110)
--- NOTE | 2021-05-01 13:35 | PC.NURSE ---
Amio gtt off at this time
[2021-05-01 16:42] LABS: POC Glucose,Bedside 274 (70-110)
[2021-05-01 20:34] LABS: POC Glucose,Bedside 293 (70-110)
[2021-05-02] VITALS: BP 168/77; PULSE 60; PULSE 65; RESP 18; TEMP 36.9; O2SAT 99
[2021-05-02 04:00] VITALS: BP 160/69; PULSE 60; PULSE 71; RESP 18; TEMP 37; O2SAT 94
[2021-05-02 05:00] VITALS: BMI 35.1
--- NOTE | 2021-05-02 06:00 | XR_ITS ---
PROCEDURE INFORMATION: Exam: XR Chest Exam date and time: 05/02/2021 6:00 AM Age: 75 years old Clinical indication: Device placement; Patient HX: Recently extubated; Additional info: Daily while intubated TECHNIQUE: Imaging protocol: XR of the chest. Views: 1 view. COMPARISON: CR XR CHEST PORTABLE 05/01/2021 4:53 AM FINDINGS: Tubes, catheters and devices: Right IJ catheter in situ. Lungs: PersistentBilateral scattered heterogeneous pulmonary opacities, infectious/inflammatory and/or pulmonary edema. Pleural spaces: Probable small pleural effusions. Heart/Mediastinum: stable cardiomediastinal silhouette. Bones/joints: Bilateral shoulder arthroplasty. Other findings: Persistent metallic densities projecting over thoracic spine. IMPRESSION: 1. PersistentBilateral scattered heterogeneous pulmonary opacities, infectious/inflammatory and/or pulmonary edema. Recommend imaging follow-up until complete resolution. 2. No significant overall change.
[2021-05-02 07:06] LABS: Alanine Aminotransferase 19 U/L (12-78); Albumin Level 3.6 g/dl (3.5-5.0); Albumin/Globulin Ratio 1.3 (1.1-1.8); Alkaline Phosphatase 105 U/L (38-126); Anion Gap 10.3 mEq/L (5-15); Aspartate Amino Transferase 50 U/L (14-36); Bilirubin,Total 0.9 mg/dl (0.2-1.3); Blood Urea Nitrogen 24 mg/dl (7-17); Calcium 8.5 mg/dl (8.4-10.2); Carbon Dioxide 28 mmol/L (22.0-30.0); Chloride 98 mmol/L (98-107); Creatinine Clearance Estimated 67 mL/min (50-200); Estimated Glomerular Filt Rate 82 ml/min (>60); GFR (African American) 99 ML/MIN (>60); Globulin 2.8 g/dL (1.3-3.2); Glucose 194 mg/dl (74-100); Potassium 3.3 mmoL/L (3.5-5.1); Sodium 133 mmol/L (136-145); Total Protein,Serum 6.4 g/dl (6.3-8.2)
--- NOTE | 2021-05-02 07:52 | SW/DCPLANNER ---
Addendum entered by Kristy Harris 05/02/21 10:20: CORRECTION: PATIENT WAS SKILLED THERE UNDER HER MEDICARE BENEFIT BUT DOES HAVE MEDICAID AND CAN RETURN BACK THERE WHEN READY FOR DISPOSITION... Original Note: PATIENT ADMITTED TO [facility] FROM [facility] WITH A DIAGNOSIS OF COVID AND RESPIRATORY FAILURE WITH HYPOXIA.. SHE IS ON A MEDICAID BEDHOLD THERE AND WILL RETURN BACK ONCE SHE IS MEDICALLY READY FOR A DISCHARGE.. [facility] DOES ALLOW PATIENTS WITH COVID TO RETURN BACK THERE.. DISPOSITION UNCERTAIN AT THIS TIME..
[2021-05-02 08:00] VITALS: BP 164/76; PULSE 70; PULSE 88; RESP 18; TEMP 36.9; O2SAT 3; O2SAT 93
[2021-05-02 08:27] LABS: Basophils % 0.4 % (0.1-2.0); Eosinophils % 0.1 % (0.1-12.0); Hematocrit 32.6 % (37.0-47.0); Hemoglobin 10.7 g/dL (12.2-16.2); Lymphocytes # 0.8 K/mm3 (0.7-4.5); Lymphocytes % 11.7 % (10-50); Mean Corpuscular HGB Conc 32.7 g/dL (31.8-35.4); Mean Corpuscular Volume 88.5 fl (81-99); Mean Platelet Volume 8.9 fl (7.4-10.4); Monocytes # 0.4 K/mm3 (0.1-1.0); Monocytes % 6.1 % (1.7-9.3); Neutrophils # 5.6 K/mm3 (1.8-7.8); Neutrophils % 81.7 % (37.0-80.0); Platelet Count 306 K/mm3 (142-424); Red Blood Count 3.69 M/mm3 (4.20-5.40); Red Cell Distribution Width 16.1 % (11.5-17.5); White Blood Count 6.9 K/mm3 (4.8-10.8)
--- NOTE | 2021-05-02 09:46 | HMH.PULMPN ---
Internal Medicine - PN: Subj *Date: 05/02/21 *Time: 13:24 Interval history: No acute respiratory events overnight. Exam - Constitutional Constitutional:: Present: no acute distress, comfortable - HENMT Exam HENMT: Present: normocephalic, atraumatic - Eye Exam Eyes:: Present: normal appearance both eyes and related structures - Neck Exam Neck:: Present: normal visual inspection - Respiratory Exam Respiratory:: Present: able to speak in complete sentences, no respiratory distress. Absent: rales, wheezing - Cardiovascular Exam Cardiac:: Present: S1, S2 - GI Exam GI:: Present: soft - Skin Exam Skin: Present: warm, no rash - Neurological Exam Neurological: Present: alert, awake. Absent: normal cognition, oriented X3 - Extremities Exam Extremities: Present: no cyanosis, no clubbing Assessment and Plan (1) Anemia Status: Acute Qualifiers: Anemia type: unspecified type Qualified Code(s): D64.9 - Anemia, unspecified Category: Medical Code(s): D64.9 - Anemia, unspecified (2) Respiratory failure with hypoxia Status: Acute Qualifiers: Chronicity: unspecified Qualified Code(s): J96.91 - Respiratory failure, unspecified with hypoxia Category: Medical Code(s): J96.91 - Respiratory failure, unspecified with hypoxia (3) Diabetes Status: Chronic Qualifiers: Diabetes mellitus extermination supervisor insulin use: without residential use Category: Medical Code(s): E11.9 - Type 2 diabetes mellitus without complications (4) COVID-19 virus infection Status: Acute Category: Medical Code(s): U07.1 - COVID-19 (5) Hypertension Status: Chronic Qualifiers: Hypertension type: unspecified Qualified Code(s): I10 - Essential (primary) hypertension Category: Medical Code(s): I10 - Essential (primary) hypertension (6) Poor venous access Status: Acute Category: Medical Code(s): I87.8 - Other specified disorders of veins (7) PAF (paroxysmal atrial fibrillation) Status: Acute Category: Medical Code(s): I48.0 - Paroxysmal atrial fibrillation (8) Hypokalemia Status: Acute Category: Medical Code(s): E87.6 - Hypokalemia - Assessment and plan all Dx Assessment and Plan for all problems:: #Hypoxic respiratory failure: #COVID-19 pneumonia: Recent shoulder surgery presented with respiratory failure and anemia. Worsening respiratory distress and was eventually needing mechanical ventilatory support. No evidence of leukocytosis. Renal function stable. CTA on admission did not show any evidence of pulmonary embolism. Showed pathcy airspace disease Patient was initiated on vancomycin and cefepime on admission along with COVID protocol. Patient respiratory significantly improved, extubated to nasal cannula 3 L on 04/30/21 Patient denies any smoking history, denies any prior respiratory complaints or inhaler use. Interval update: Respiratory status continued to improve., Weaned to 2 L nasal cannula. Chest x-ray showed mild worsening of bilateral lower lobe airspace disease, concerning for aspiration/atelectasis. AFebrile. No evidence of leukocytosis. Plan: -Wean antibiotics to levofloxacin to complete a total of 7-day course. -Incentive spirometry -Continue dexamethasone x 10 days and baricitinib x 14 days. -Follow with speech recommendations -Continue nasal cannula oxygen supplementation to maintain O2 saturation goal of 88% and above -Continue DuoNebs every 6 hours as needed #Thank for involving pulmonary in this patient care. We will continue to follow.
--- NOTE | 2021-05-02 09:47 | HMH.OTEV ---
OT Inpatient Evaluation Rehab OT IP Evaluation Start: 05/02/21 09:08 Freq: ONCE Status: Complete Protocol: Document 05/02/21 09:39 [facility] (Rec: 05/02/21 09:46 [id number] Rehab OT IP Assessment Subjective History Pt oriented x 2 on arrival. Pt agreeable to engaged in therapy evaluation. Pt was admitted via ED on 04/27/21 due to COVID-19. The following information was copied from PCP's history and report: Patient is a 75-year-old white female, newly admitted to [facility]. Her course preceding admission there included surgery on her left shoulder. Her postoperative course was complicated by dyspnea on exertion prompting further reevaluation. In the course of her reevaluation she was diagnosed with pneumonia. Subsequently diagnosed as COVID-positive. Initial labs taken at the [facility] came back with a hemoglobin of 7.4. Patient had evidently been placed on p.o. iron. Patient was found in the emergency room to have some dark stool but occult blood was negative. My plan was to transfuse the patient to a stable level and evaluate further for GI blood loss. Patient has not had endoscopic studies. Earlier this morning patient had a rapid desaturation and emergency response was called. She was subsequently intubated. Pulmonary consultation was obtained for vent management. He was given 60 of Lasix initially, just ordered another 80. Chest film shows patchy changes. CTA is ordered and pending to rule out pulmonary emb
--- NOTE | 2021-05-02 10:09 | HMH.ACPN2 ---
Internal Medicine - PN: Subj *Date: 05/02/21 *Time: 08:30 Interval history: pt states she feels better Exam Vital signs and Labs for Last 24 Hours: Temp Pulse Resp BP Pulse Ox 98.5 F 88 18 164/76 H 93 L 05/02/21 08:00 05/02/21 08:00 05/02/21 08:00 05/02/21 08:00 05/02/21 08:00 Laboratory Results - last 24 hr 05/01/21 11:55: POC Glucose 409 H* 05/01/21 16:29: POC Glucose 274 H 05/01/21 20:10: POC Glucose 293 H 05/02/21 06:20: WBC 6.9, RBC 3.69 L, Hgb 10.7 L, Hct 32.6 L, MCV 88.5, MCH 29.0, MCHC 32.7, RDW 16.1, Plt Count 306, MPV 8.9, Neut % (Auto) 81.7 H, Lymph % (Auto) 11.7, [place] % (Auto) 6.1, Eos % (Auto) 0.1, Baso % (Auto) 0.4, Neut # (Auto) 5.6, Lymph # (Auto) 0.8, [place] # (Auto) 0.4, Eos # (Auto) 0.0, Baso # (Auto) 0.0 05/02/21 06:20: Sodium 133 L, Potassium 3.3 L, Chloride 98, Carbon Dioxide 28, Anion Gap 10.3, BUN 24 H, Creatinine 0.70, Estimated Creat Clear 67, Estimated GFR 82, Est GFR ( Amer) 99, Glucose 194 H, Calcium 8.5, Total Bilirubin 0.9, AST 50 H, ALT 19, Alkaline Phosphatase 105, Total Protein 6.4, Albumin 3.6, Globulin 2.8, Albumin/Globulin Ratio 1.3 I & O for Last 24 hours: Intake & Output 04/29/21 04/30/21 05/01/21 05/02/21 11:59 11:59 11:59 11:59 Intake Total 1723.792 / 2383.791 2412.292 / 1796.292 710 / 710 540 / 540 Output Total 1475 / 1505 2460 / 2720 3430 / 3430 3700 / 3700 Balance 248.792 / 218.792 -663.708 / -923.708 -2720 / -2720 -3160 / -3160 Weight 191 lb 2.252 oz 191 lb 5.78 oz 190 lb 0.615 oz 190 lb 11.198 oz Microbiology Reports for the Last 24 Hours: Microbiology 04/28/21 09:53 Sputum - Endotracheal Tube Aspirate Gram Stain - Final 04/28/21 09:53 Sputum - Endotracheal Tube Aspirate Sputum Culture - Final No growth. - Constitutional no acute distress - *Routine HEENT Exam Head: Present: normocephalic Eye: Present: PERRL ENT: Present: mucous membranes moist - *Routine Neck Exam Present: supple. Absent: lymphadenopathy - *Routine Respiratory Exam Present: rhonchi - *Routine Cardiovascular Exam Present: RRR - *Routine Abdominal Exam Present: soft, normoactive bowel sounds. Absent: tenderness - *Routine Extremities Exam Absent: cyanosis, clubbing, edema - *Routine Skin Exam Present: warm. Absent: rash - *Routine Neurological Exam Present: alert, oriented X3 Assessment and Plan (1) Anemia Status: Acute Qualifiers: Anemia type: unspecified type Qualified Code(s): D64.9 - Anemia, unspecified Category: Medical Code(s): D64.9 - Anemia, unspecified (2) Respiratory failure with hypoxia Status: Acute Qualifiers: Chronicity: unspecified Qualified Code(s): J96.91 - Respiratory failure, unspecified with hypoxia Category: Medical Code(s): J96.91 - Respiratory failure, unspecified with hypoxia (3) Diabetes Status: Chronic Qualifiers: Diabetes mellitus mcc insulin use: without salvage determiner use Category: Medical Code(s): E11.9 - Type 2 diabetes mellitus without complications (4) COVID-19 virus infection Status: Acute Category: Medical Code(s): U07.1 - COVID-19 (5) Hypertension Status: Chronic Qualifiers: Hypertension type: unspecified Qualified Code(s): I10 - Essential (primary) hypertension Category: Medical Code(s): I10 - Essential (primary) hypertension (6) Poor venous access Status: Acute Category: Medical Code(s): I87.8 - Other specified disorders of veins (7) PAF (paroxysmal atrial fibrillation) Status: Acute Category: Medical Code(s): I48.0 - Paroxysmal atrial fibrillation (8) Hypokalemia Status: Acute Category: Medical Code(s): E87.6 - Hypokalemia - Assessment and plan all Dx Assessment and Plan for all problems:: rounded with dr vicente all orders per jules felix
--- NOTE | 2021-05-02 10:30 | HMH.PTEV ---
Physical Therapy Evaluation Rehab PT IP Evaluation Start: 05/02/21 09:06 Freq: ONCE Status: Active Protocol: Document 05/02/21 10:28 GERMAINE (Rec: 05/02/21 10:30 GERMAINE [id number]) Subjective/History History History Patient is a 75-year-old white female, newly admitted to [facility]. Her course preceding admission there included surgery on her left shoulder. Her postoperative course was complicated by dyspnea on exertion prompting further reevaluation. In the course of her reevaluation she was diagnosed with pneumonia. Subsequently diagnosed as COVID-positive. Subjective Subjective Pt reports she lives in group home and was functionally Independent Rehab PT IP Eval Objective Appearance Patient Behavior Cooperative Patient Orientation Place,Name,Birthday,Year Difficulty following instructions none Speech Pattern Appropriate Ambulation Patient Able to Ambulate Yes Ambulation Observation IP General Gait Pattern Observation Shuffling Step Ambulation Distance (feet) 5 Ambulation Assistive Device None Ambulation Ability Contact Guard/Hand Hold Balance Ability to Arise Able, uses arms to help Sitting Balance Steady, safe Standing Balance Steady, wide stance Dynamic Sitting Balance Ability Good Dynamic Standing Balance Ability Fair Transfers Bed Transfer Ability Supervision/Stand by Chair Transfer Ability Supervision/Stand by Sit to Stand Bed Transfer Ability Contact Guard/Hand Hold Sit to Stand Chair Transfer Ability Contact Guard/Hand Hold Rehab PT IP prob,goals,plan Problems Date of Evaluation: 05/02/21 Rehab Potential Rehab Potential Innapropriate for Skilled Therapy Equipment Needs Assistive Devices None / NA Discharge Plan PT Discharge Plan Pt resides at SNF and has assistance PRN - pt at baseline level and safe to return to SNF upon dc from [facility] G -code Required Yes Eval Complexity Eval Charge Codes 66784 - Moderate Complexity G Codes PT Current Status Mobility PT Current Status Modifier CJ-At least 20% but less than
--- NOTE | 2021-05-02 10:32 | ECG_ITS ---
APPROVED REPORT Exam: Resting ECG HR:64 bpm ECG Measurements Heart Rate 64 AXES [place] 165 P 32 QRSd 75 QRS 7 QT 375 T 21 QTc 385 Conclusion SINUS RHYTHM MINIMAL VOLTAGE CRITERIA FOR LVH, CONSIDER NORMAL VARIANT [MEETS CRITERIA IN ONE OF: R(aVL), S(V1), R(V5), R(V5/V6)+S(V1)] NONSPECIFIC T-WAVE ABNORMALITY BORDERLINE ECG UNCONFIRMED REPORT Electronically signed by : Justin Lee MD 05/07/2021 18:36:06
[2021-05-02 10:43] LABS: Magnesium 1.7 mg/dl (1.6-2.3)
--- NOTE | 2021-05-02 10:50 | P.PN_ITS ---
Subjective Date: 05/02/21 Time: 10:51 Principal diagnosis: A. fib with RVR, COVID Interval history: 75 yo WF in bedside chair in NAD. Looks more alert and is interacting better today. No complaints of chest pain. EKG today is NSR with acceptable QTC interval Exam Vital signs and Labs for Last 24 Hours: Temp Pulse Resp BP Pulse Ox 98.5 F 88 18 164/76 H 93 L 05/02/21 08:00 05/02/21 08:00 05/02/21 08:00 05/02/21 08:00 05/02/21 08:00 Laboratory Results - last 24 hr 05/01/21 11:55: POC Glucose 409 H* 05/01/21 16:29: POC Glucose 274 H 05/01/21 20:10: POC Glucose 293 H 05/02/21 06:20: WBC 6.9, RBC 3.69 L, Hgb 10.7 L, Hct 32.6 L, MCV 88.5, MCH 29.0, MCHC 32.7, RDW 16.1, Plt Count 306, MPV 8.9, Neut % (Auto) 81.7 H, Lymph % (Auto) 11.7, [place] % (Auto) 6.1, Eos % (Auto) 0.1, Baso % (Auto) 0.4, Neut # (Auto) 5.6, Lymph # (Auto) 0.8, [place] # (Auto) 0.4, Eos # (Auto) 0.0, Baso # ( Auto) 0.0 05/02/21 06:20: Sodium 133 L, Potassium 3.3 L, Chloride 98, Carbon Dioxide 28, Anion Gap 10.3, BUN 24 H, Creatinine 0.70, Estimated Creat Clear 67, Estimated GFR 82, Est GFR ( Amer) 99, Glucose 194 H, Calcium 8.5, Total Bilirubin 0.9, AST 50 H, ALT 19, Alkaline Phosphatase 105, Total Protein 6.4, Albumin 3.6, Globulin 2.8, Albumin/Globulin Ratio 1.3 05/02/21 06:20: Magnesium 1.7 I & O for Last 24 hours: Intake & Output 04/29/21 04/30/21 05/01/21 05/02/21 11:59 11:59 11:59 11:59 Intake Total 1723.792 / 1912.709 4552.292 / 1796.292 710 / 710 540 / 540 Output Total 1475 / 1505 2460 / 2720 3430 / 3430 3700 / 3700 Balance 248.792 / 218.792 -663.708 / -923.708 -2720 / -2720 -3160 / -3160 Weight 191 lb 2.252 oz 191 lb 5.78 oz 190 lb 0.615 oz 190 lb 11.198 oz Microbiology Reports for the Last 24 Hours: Microbiology 04/28/21 09:53 Sputum - Endotracheal Tube Aspirate Gram Stain - Final 04/28/21 09:53 Sputum - Endotracheal Tube Aspirate Sputum Culture - Final No growth. - *Routine Respiratory Exam Present: decreased breath sounds, CTA bilaterally - *Routine Cardiovascular Exam Present: RRR - *Routine Extremities Exam Absent: cyanosis, clubbing, edema Progress Note: A&P (1) Anemia Status: Acute (2) Respiratory failure with hypoxia Status: Acute (3) Diabetes Status: Chronic (4) COVID-19 virus infection Status: Acute (5) Hypertension Status: Chronic (6) Poor venous access Status: Acute (7) PAF (paroxysmal atrial fibrillation) Status: Acute (8) Hypokalemia Status: Acute Assessment and Plan for All Diagnoses:: 1. PAF now in NSR. Continue amiodarone and bisoprolol. 2. Elevated [id number] score. Will switch lovenox to Xarelto. 3. Hypokalemia, continue supplementation 4. COVID pneumonia, per PCP and Pulmonary. 5. Recent left shoulder surgery. 6. Anemia, s/p transfusion. Hgb stable at 10.7. 7. HTN, improved control with addition of ARB. Will increase dose.
[2021-05-02 11:20] VITALS: BP 148/76; PULSE 69; RESP 18; TEMP 36.8; O2SAT 94
[2021-05-02 11:26] LABS: POC Glucose,Bedside 233 (70-110)
[2021-05-02 12:00] VITALS: PULSE 60
--- NOTE | 2021-05-02 12:52 | HMH.DCSUM ---
General - General Admission date:: 04/28/21 Discharge date: 05/02/21 HPI HPI: Patient is a 75-year-old white female, newly admitted to [facility]. Her course preceding admission there included surgery on her left shoulder. Her postoperative course was complicated by dyspnea on exertion prompting further reevaluation. In the course of her reevaluation she was diagnosed with pneumonia. Subsequently diagnosed as COVID-positive. Initial labs taken at the senior living came back with a hemoglobin of 7.4. Patient had evidently been placed on p.o. iron. Patient was found in the emergency room to have some dark stool but occult blood was negative. My plan was to transfuse the patient to a stable level and evaluate further for GI blood loss. Patient has not had endoscopic studies. Earlier this morning patient had a rapid desaturation and emergency response was called. She was subsequently intubated. Pulmonary consultation was obtained for vent management. He was given 60 of Lasix initially, just ordered another 80. Chest film shows patchy changes. CTA is ordered and pending to rule out pulmonary embolism. Patient is now placed on cefepime, vancomycin, azithromycin, dexamethasone and baricitinib. Dr. Gamble is on board for consultation. Hospital Course Hospital Course: Laboratory Tests 04/27/21 04/27/21 04/27/21 16:54 16:54 16:54 WBC 6.4 RBC 2.71 L Hgb 7.9 L Hct 24.7 L MCV 91.3 MCH 29.1 MCHC 31.9 RDW 16.7 Plt Count 342 MPV 8.6 Neut % (Auto) 60.8 Lymph % (Auto) 30.7 [place] % (Auto) 5.0 Eos % (Auto) 2.9 Baso % (Auto) 0.6 Neut # (Auto) 3.9 Lymph # (Auto) 2.0 [place] # (Auto) 0.3 Eos # (Auto) 0.2 Baso # (Auto) 0.0 PT 11.4 INR 1.01 APTT 28.3 D-Dimer Specimen Source O2 % ABG pH ABG pCO2 ABG pO2 ABG HCO3 ABG Total CO2 ABG O2 Saturation ABG Base Excess Tru Test ABG Lactate Vent Rate Tidal Volume PEEP Sodium 134 L Potassium 4.4 Chloride 101 Carbon Dioxide 26 Anion Gap 11.4 BUN 19 H Creatinine 0.90 Estimated Creat Clear 64 Estimated GFR 61 Est GFR ( Amer) 74 Glucose 196 H POC Glucose Calcium 8.3 L Magnesium Iron TIBC Iron Saturation Ferritin Total Bilirubin 0.5 AST 32 ALT 17 Alkaline Phosphatase 129 H C-Reactive Protein Total Protein 6.1 L Albumin 3.4 L Globulin 2.7 Albumin/Globulin Ratio 1.3 Triglycerides Cholesterol LDL Cholesterol Direct VLDL Cholesterol HDL Cholesterol Cholesterol/HDL Ratio Lipase Vitamin B12 Folate TSH Free T4 Index Thyroxine (T4) T3 Uptake Urine Color Urine Appearance Urine pH Ur Specific [place] Urine Protein Urine Glucose (UA) Urine Ketones Urine Blood Urine Nitrate Urine Bilirubin Urine Urobilinogen Ur Leukocyte Esterase Urine RBC Ur Squamous Epith Cells Urine Bacteria Stool Occult Blood Vancomycin Peak Vancomycin Trough SARS-CoV-2 (PCR) Influenza A Untype (PCR) Influenza Type B (PCR) Blood Type Blood Type Confirm Antibody Screen Crossmatch ([facility]) 04/27/21 04/27/21 04/27/21 16:54 16:54 16:54 WBC RBC Hgb Hct MCV MCH MCHC RDW Plt Count MPV Neut % (Auto) Lymph % (Auto) [place] % (Auto) Eos % (Auto) Baso % (Auto) Neut # (Auto) Lymph # (Auto) [place] # (Auto) Eos # (Auto) Baso # (Auto) PT INR APTT D-Dimer Specimen Source O2 % ABG pH ABG pCO2 ABG pO2 ABG HCO3 ABG Total CO2 ABG O2 Saturation ABG Base Excess Tru Test ABG Lactate Vent Rate Tidal Volume PEEP Sodium Potassium Chloride Carbon Dioxide Anion Gap BUN Creatinine Estimated Creat Clear Estimate
--- NOTE | 2021-05-02 12:57 | HMH.SLDYSPHA ---
Speech & Language Evaluation Speech/Language Dysphagia Evaluation Start: 05/02/21 12:51 Freq: ONCE Status: Active Protocol: Document 05/02/21 12:51 CLAY (Rec: 05/02/21 12:57 CLAY ) Dysphagia Assess/Goals/Plan Assessment Date of Evaluation: 05/02/21 Evaluation Type Initial Certification Assessment/Problems Dysphagia Does Patient Qualify for Service No Qualify/Failure Comment Patient showed no overt signs of dysphagia. Recommendations PHYSICIAN CERTIFICATION: The specified therapy services are required, authorized, and reviewed every 30 days. Diet Recommendations Regular with chopped meats with gravy/sauce Liquid Type Recommendations Normal/Thin SL Swallow Guidelines Standard Aspiration Prec. Dysphagia Swallow Precautions/Strategies Sitting Upright (90 deg),Small Bites and Sips,Alternate Liquids/Solids Plan Pt/Guardian verbally ack understanding Yes of dx/prognosis/goals G -code Required No Speech & Language HPI Language Primary Language Slovenian General Information General Current Food Consistancy Regular,Thin Liquids Dentition Upper & Lower Dentures Oxygen Status Nasal Cannula Facial Symmetry Symmetrical Patient Orientation Person,Place Ability to Follow Directions Excellent Communication Ability No Impairment Dysphagia:Food Presentation Evaluation Food Type Mechanical Soft,Regular,Liquid ,Pudding Dysphagia Evaluation Summary Ms. Van was given the following consistencies; thins with straw and open cup, pudding, mechanical soft, and regular. Ms. Van displayed no overt signs and symptoms of dysphagia. At this time speech therapy is not recommended. At this time, it is recommended she is placed on regular diet with chopped meats with sauce/gravy. Stroke Dysphagia Assessment PHYSICIAN CERTIFICATION: I certify the specified therapy services for Marleny Van are required, authorized, and reviewed every 30 days.
[2021-05-02 13:09] LABS: POC Glucose,Bedside 484 (70-110)
[2021-05-02 16:00] VITALS: BP 126/88; PULSE 82; RESP 16; TEMP 37.1; O2SAT 94
[2021-05-02 18:08] LABS: POC Glucose,Bedside 345 (70-110)
--- NOTE | 2021-05-02 19:17 | PC.NURSE ---
Did make D TEJA Calhoun aware of blood sugar of 484, no additional coverage ordered, p's next fs 345. Meds given per jun. Pt d/cd at [facility] @ 1914. Called report to Elaina at [facility]. Dsg cdi to R site, pulled with no issues this shift.
== END 2021-05-02 19:15 | DRG 208 ==
LOC: ER 17:39 → 2ND 18:14
PROVIDERS: Internal Medicine Pulmonary Disease; Physician Assistant; Admitting Provider Family Medicine; Emergency Provider Emergency Medicine; Visit Provider Family Medicine
DX: U07.1 COVID-19 (principal); J12.82 Pneumonia due to coronavirus disease 2019; J96.01 Acute respiratory failure with hypoxia; D64.9 Anemia, unspecified; Z87.891 Personal history of nicotine dependence; E11.9 Type 2 diabetes mellitus without complications; I10 Essential (primary) hypertension; E87.6 Hypokalemia; I48.0 Paroxysmal atrial fibrillation; E03.9 Hypothyroidism, unspecified
CPT/HCPCS: 31500; 94002; 36556; 36415; 71045; 71275; 80053; 80061; 80202; 81001; 82272; 82607; 82728; 82746; 82803; 82962; 83540; 83550; 83605; 83690; 83735; 84436; 84443; 84479; 85025; 85378; 85610; 85730; 86140; 86850; 87040; 87070; 87205; 92610; 93005; 93306; 94003; 94760; 94761; 97162; 97166; 99282; C1751; C9803; G0328; G0378; J0282; J0330; J0456; J2704; J7060; P9016; Q9967; U0003; U0005

== ENCOUNTER 2021-05-06 18:51 | Inpatient (IN) | payer MEDICARE, MEDICAID, SELFPAY ==
[2021-05-06 18:51] VITALS: BP 187/80; PULSE 86; RESP 22; O2SAT 96; BMI 36.6
--- NOTE | 2021-05-06 19:10 | XR_ITS ---
PROCEDURE INFORMATION: Exam: XR Chest Exam date and time: 05/06/2021 7:10 PM Age: 75 years old Clinical indication: Shortness of breath; Additional info: SOA TECHNIQUE: Imaging protocol: XR of the chest. Views: 1 view. COMPARISON: CR XR CHEST PORTABLE 05/02/2021 4:33 AM FINDINGS: Lungs: Multifocal bilateral airspace opacities progressive from prior examination. Pleural spaces: No pneumothorax. Heart/Mediastinum: No cardiomegaly. Bones/joints: Postsurgical changes to bilateral forearms. IMPRESSION: Multifocal bilateral airspace opacities progressive from prior examination. Follow-up to radiographic clearance is again recommended.
--- NOTE | 2021-05-06 19:10 | ECG_ITS ---
APPROVED REPORT Exam: Resting ECG HR:76 bpm ECG Measurements Heart Rate 76 AXES [place] 167 P 48 QRSd 82 QRS 4 QT 404 T 36 QTc 434 Conclusion SINUS RHYTHM MODERATE VOLTAGE CRITERIA FOR LVH, CONSIDER NORMAL VARIANT [MEETS CRITERIA IN ONE OF: R(aVL), S(V1), R(V5), R(V5/V6)+S(V1)] BORDERLINE ECG UNCONFIRMED REPORT Electronically signed by : Justin Lee MD 05/07/2021 18:34:39
[2021-05-06 19:13] LABS: ABG Base Excess 1.7 mmol/L (-2.4-2.3); ABG HCO3 25.2 mmhg (22.0-26.0); ABG Oxygen Saturation 95 % (90-100); ABG PCO2 34.4 mmhg (35.0-45.0); ABG PH 7.48 mmol/L (7.35-7.45); ABG PO2 71.3 mmhg (80-100); ABG TCO2 26.2 mmhg (23-27); Allen's Test Y; Oxygen 100 %; Source R/R
[2021-05-06 19:17] LABS: Influenza A, PCR Not Detected (NotDetected); Influenza B, PCR Not Detected (NotDetected)
[2021-05-06 19:24] LABS: Basophils # 0.1 K/mm3 (0-0.2); Basophils % 0.5 % (0.1-2.0); Hematocrit 35.2 % (37.0-47.0); Hemoglobin 11.9 g/dL (12.2-16.2); Lactic Acid 1.2 mmol/L (0.7-2.1); Lymphocytes # 0.9 K/mm3 (0.7-4.5); Lymphocytes % 6.7 % (10-50); Mean Corpuscular HGB Conc 33.8 g/dL (31.8-35.4); Mean Corpuscular Hemoglobin 29.2 pg (27.0-31.2); Mean Corpuscular Volume 86.2 fl (81-99); Mean Platelet Volume 8.5 fl (7.4-10.4); Monocytes # 0.5 K/mm3 (0.1-1.0); Monocytes % 4.1 % (1.7-9.3); Neutrophils # 11.5 K/mm3 (1.8-7.8); Neutrophils % 88.7 % (37.0-80.0); Platelet Count 387 K/mm3 (142-424); Red Blood Count 4.08 M/mm3 (4.20-5.40); Red Cell Distribution Width 16.1 % (11.5-17.5)
[2021-05-06 19:27] LABS: MANUAL DIFFERENTIAL MANUAL DIFFERENTIAL (MANUAL DIFF)
[2021-05-06 19:32] LABS: Chloride 95 mmol/L (98-107); Potassium 4.1 mmoL/L (3.5-5.1); Sodium 131 mmol/L (136-145)
[2021-05-06 19:33] LABS: Lymphocytes % 9 % (10-50); Monocytes % 3 % (2-9); Neutrophils % 82 % (42-76); Platelet Estimate Normal; RBC Morphology Normal; Rouleaux 2+; Total Cells Counted 100
[2021-05-06 19:35] LABS: Alanine Aminotransferase 32 U/L (12-78); Albumin Level 3.9 g/dl (3.5-5.0); Albumin/Globulin Ratio 1.2 (1.1-1.8); Alkaline Phosphatase 154 U/L (38-126); Anion Gap 12.1 mEq/L (5-15); Aspartate Amino Transferase 52 U/L (14-36); Bilirubin,Total 0.9 mg/dl (0.2-1.3); Blood Urea Nitrogen 25 mg/dl (7-17); Carbon Dioxide 28 mmol/L (22.0-30.0); Creatinine Clearance Estimated 78 mL/min (50-200); Estimated Glomerular Filt Rate 82 ml/min (>60); GFR (African American) 99 ML/MIN (>60); Globulin 3.3 g/dL (1.3-3.2); Total Protein,Serum 7.2 g/dl (6.3-8.2)
[2021-05-06 19:36] LABS: Calcium 9.1 mg/dl (8.4-10.2); Glucose 222 mg/dl (74-100)
[2021-05-06 19:42] LABS: Coronavirus 19, PCR Detected (NotDetected)
[2021-05-06 19:49] LABS: Troponin I < 0.01 ng/ml (0.00-0.034)
--- NOTE | 2021-05-06 20:38 | HMH.EDSOB ---
ED Disposition Clinical Impression: Pneumonia due to COVID-19 virus, Obesity (BMI 30-39.9), Diabetes 1.5, managed as type 2 Respiratory failure with hypoxia Qualifiers: Chronicity: acute on chronic Qualified Code(s): J96.21 - Acute and chronic respiratory failure with hypoxia Disposition: Admitted as Observation Condition on Discharge: Fair Referrals: Provider,Referral, [Primary Care Provider] - - Critical Care Critical Care Time: No Attestation: On 05/06/21, the high probability of a clinically significant, sudden or life threatening deterioration of the following system(s) required my full and direct attention, intervention and personal management. The time I documented below is in addition to time spent performing reported procedures but includes the following listed in this critical care notation. Medical Decision Making - Medical Records Medical records reviewed: Yes: I reviewed the patient's medical records. - Rudolph Inquiry Pt receiving controlled substance: No Vital Signs: 05/06/21 18:51 Pulse Rate [Left Radial] 86 Respiratory Rate 22 Blood Pressure [Right Arm] 187/80 H Blood Pressure Mean [Right Arm] 115 Blood Pressure Source [Right Arm] Automatic Cuff Blood Pressure Position [Right Arm] Sitting 02 Sat by Pulse Oximetry 96 Oxygen Delivery Method Non-Rebreather - Lab Data Lab results reviewed: Yes: I reviewed the patient's lab results. Lab Results 05/06/21 18:55: WBC 13.0 H, RBC 4.08 L, Hgb 11.9 L, Hct 35.2 L, MCV 86.2, MCH 29.2, MCHC 33.8, RDW 16.1, Plt Count 387, MPV 8.5, Neut % (Auto) 88.7 H, Lymph % (Auto) 6.7 L, Hunt % (Auto) 4.1, Eos % (Auto) 0.0 L, Baso % (Auto) 0.5, Neut # (Auto) 11.5 H, Lymph # (Auto) 0.9, Hunt # (Auto) 0.5, Eos # (Auto) 0.0, Baso # (Auto) 0.1, Total Counted 100, Neutrophils % (Manual) 82 H, Band Neutrophils % 6.0, Lymphocytes % (Manual) 9 L, Monocytes % (Manual) 3, Platelet Estimate Normal, RBC Morphology Normal, Rouleaux 2+ 05/06/21 18:55: Sodium 131 L, Potassium 4.1, Chloride 95 L, Carbon Dioxide 28, Anion Gap 12.1, BUN 25 H, Creatinine 0.70, Estimated Creat Clear 78, Estimated GFR 82, Est GFR ( Amer) 99, Glucose 222 H, Calcium 9.1, Total Bilirubin 0.9, AST 52 H, ALT 32, Alkaline Phosphatase 154 H, Troponin I < 0.01, Total Protein 7.2, Albumin 3.9, Globulin 3.3 H, Albumin/Globulin Ratio 1.2 05/06/21 18:55: Lactate 1.2 05/06/21 18:55: SARS-CoV-2 (PCR) Detected A, Influenza A Untype (PCR) Not detected, Influenza Type B (PCR) Not detected 05/06/21 19:11: Specimen Source R/r, O2 % 100, ABG pH 7.48 H, ABG pCO2 34.4 L, ABG pO2 71.3 L, ABG HCO3 25.2, ABG Total CO2 26.2, ABG O2 Saturation 95, ABG Base Excess 1.7, Tru Test Y Result diagrams: 05/06/21 18:55 05/06/21 18:55 Orders (Tests/Meds): ED MEDICATIONS Generic Name Dose Route Start Last Admin Trade Name Freq PRN Reason Stop Dose Admin Sodium Chloride 1,000 mls @ 999 mls/hr 05/06/21 22:00 05/06/21 22:14 Sod Chlor 0.9% 1000ml Bag IV 05/06/21 23:00 999 mls/hr .Q1H1M ZEFERINO Administration Discontinued Medications Generic Name Dose Route Start Last Admin Trade Name Freq PRN Reason Stop Dose Admin Dexamethasone Sodium Phosphate 10 mg 05/06/21 21:51 05/06/21 22:15 Dexamethasone 4mg/Ml 5ml Mdv IV 05/06/21 21:52 10 mg ONCE ONE Administration Iopamidol 70 ml 05/06/21 21:53 05/06/21 21:54 Iopamidol-370 (76%);100ml Bottle IV 05/06/21 21:54 70 ml ONCE ONE Administration Sodium Chloride 40 ml 05/06/21 21:53 05/06/21 21:54 0.9 % Sodium Chloride 50 Ml Vial IV 05/06/21 21:54 40 ml ONCE ONE Administration Sodium Chloride 10 ml 05/06/21 21:53 05/06/21 21:54 Sodium Chloride 0.9% 10ml Syr (Rad Only) IV 05/06/21 21:54 10 ml ONCE ONE Administration ORDERS Category Date Time Status Troponin I Q3H Lab 05/06/21 22:32 Received Troponin I Q3H Lab 05/07/21 01:15 Ordered Urinalysis and Microscopic Stat Lab 05/06/21 22:17 Ordered Blood Culture Stat Micro 04/15
--- NOTE | 2021-05-06 20:58 | CT_ITS ---
PROCEDURE INFORMATION: Exam: CTA Chest With Contrast Exam date and time: 05/06/2021 8:58 PM Age: 75 years old Clinical indication: Shortness of breath and other: Covid; Prior surgery; Surgery date: 1-6 months; Surgery type: Left humerus pancho; Additional info: SOA, covid+ TECHNIQUE: Imaging protocol: Computed tomographic angiography of the chest with contrast. 3D rendering (Not supervised by radiologist): MIP and/or 3D reconstructed images were created by the technologist. Radiation optimization: All CT scans at this facility use at least one of these dose optimization techniques: automated exposure control; mA and/or kV adjustment per patient size (includes targeted exams where dose is matched to clinical indication); or iterative reconstruction. Contrast material: ISOVUE 370; Contrast volume: 70 ml; Contrast route: INTRAVENOUS (IV); COMPARISON: CT ANGIO CHEST PE PROTOCOL 04/28/2021 1:08 PM FINDINGS: Pulmonary arteries: Normal. No pulmonary emboli. Aorta: No aortic aneurysm. No aortic dissection. Lungs: Multifocal bilateral ground-glass pulmonary opacities which are nonspecific but potentially infectious or inflammatory and would be compatible with the provided history of covid. Pleural spaces: No pneumothorax. No pleural effusion. Heart: No cardiomegaly. No pericardial effusion. Lymph nodes: No enlarged lymph nodes. Kidneys and ureters: 2.5 cm right renal cyst. Bones/joints: No acute fracture. Soft tissues: No significant swelling. IMPRESSION: Multifocal bilateral ground-glass pulmonary opacities which are nonspecific but potentially infectious or inflammatory and would be compatible with the provided history of covid. Follow-up to clearance is again recommended.
[2021-05-06 22:56] LABS: Microscopic, Urine URINE MICROSCOPIC (MICROSCOPIC)
[2021-05-06 22:58] LABS: Appearance,Urine SL CLOUDY (Clear); Bilirubin,Urine Negative (Negative); Blood, Urine TRACE-L (Negative); Color,Urine YELLOW (Yellow); Glucose,Urine (UA) Negative (Negative); Ketones,Urine Negative (Negative); Leukocyte Esterase,Urine 2+ (Negative); Nitrate,Urine Negative (Negative); Protein,Urine 2+ (Negative); Specific Gravity, Urine 1.015 (1.005-1.030); Urobilinogen,Urine 0.2 EU/dl (0.2)
[2021-05-06 23:01] VITALS: BMI 29.0
[2021-05-06 23:02] LABS: WBC,Urine 50-100 #/hpf (0-3)
[2021-05-06 23:03] LABS: Troponin I < 0.01 ng/ml (0.00-0.034)
--- NOTE | 2021-05-06 23:11 | PC.NURSE ---
PT ARRIVED TO FLOOR VIA STRETCHER FROM ED W/STBEENA @ [id number]
[2021-05-06 23:16] VITALS: BP 191/86; PULSE 85; RESP 25; TEMP 37.2; O2SAT 97
[2021-05-07] VITALS (9 sets, daily range): BP systolic 132–203; BP diastolic 51–87; PULSE 68–81; RESP 18–28; TEMP 36.6–37; O2SAT 90–98
[2021-05-07 02:34] LABS: Troponin I 0.02 ng/ml (0.00-0.034)
[2021-05-07 06:57] LABS: POC Glucose,Bedside 315 (70-110)
[2021-05-07 07:18] LABS: Basophils % 0.5 % (0.1-2.0); Eosinophils % 0.1 % (0.1-12.0); Hematocrit 35.3 % (37.0-47.0); Hemoglobin 11.1 g/dL (12.2-16.2); Lymphocytes # 0.5 K/mm3 (0.7-4.5); Lymphocytes % 6.3 % (10-50); Mean Corpuscular HGB Conc 31.4 g/dL (31.8-35.4); Mean Corpuscular Hemoglobin 28.2 pg (27.0-31.2); Mean Corpuscular Volume 89.6 fl (81-99); Mean Platelet Volume 8.4 fl (7.4-10.4); Monocytes # 0.2 K/mm3 (0.1-1.0); Monocytes % 2.3 % (1.7-9.3); Neutrophils # 7.1 K/mm3 (1.8-7.8); Neutrophils % 90.9 % (37.0-80.0); Platelet Count 376 K/mm3 (142-424); Red Blood Count 3.94 M/mm3 (4.20-5.40); Red Cell Distribution Width 16.3 % (11.5-17.5); White Blood Count 7.8 K/mm3 (4.8-10.8)
[2021-05-07 07:27] LABS: MANUAL DIFFERENTIAL MANUAL DIFFERENTIAL (MANUAL DIFF)
--- NOTE | 2021-05-07 07:48 | P.CONPHA_ITS ---
[facility] Pharmacy VTE Monitoring - Patient Demographics Admission date: 05/07/21 Report Date: 05/07/21 Time: 07:48 Allergies/Adverse Reactions: Patient Allergies Anesthetics - Amide Type - Select A Allergy (Verified 04/27/21 16:57) ciprofloxacin Allergy (Verified 04/27/21 16:57) fluconazole [From Diflucan] Allergy (Verified 04/27/21 16:57) influenza A (H5N1) virus vaccine mo Allergy (Verified 04/27/21 16:57) iodine Allergy (Verified 04/27/21 16:57) Sulfa (Sulfonamide Antibiotics) Allergy (Verified 04/27/21 16:57) sulfur [From Sulfur-8] Allergy (Verified 04/27/21 16:57) losartan Adverse Reaction (Verified 04/27/21 16:57) ciprocinonide Allergy (Uncoded 04/27/21 16:57) Height: 1.65 m Weight: 79.152 kg Patient Problems: Current Active Problems Respiratory failure with hypoxia (Acute) Pneumonia due to COVID-19 virus (Acute) Obesity (BMI 30-39.9) (Acute) Diabetes 1.5, managed as type 2 (Acute) - VTE Risk Labs: VTE Related Lab Results Hgb 11.1 g/dL (12.2-16.2) L 05/07/21 06:25 Hct 35.3 % (37.0-47.0) L 05/07/21 06:25 Plt Count 376 K/mm3 (142-424) 05/07/21 06:25 BUN 25 mg/dl (7-17) H 05/06/21 18:55 Creatinine 0.70 mg/dl (0.52-1.04) 05/06/21 18:55 Estimated Creat Clear 78 mL/min (50-200) 05/06/21 18:55 Was VTE Risk Assessment Performed: Yes VTE Score: 4 VTE Risk Level: Low Risk Clinical Trial Participant: No - Prophylaxis VTE Prophylaxis Ordered?: Yes Types of VTE Prophylaxis: TEDS Knee High
--- NOTE | 2021-05-07 07:57 | SW/DCPLANNER ---
Addendum entered by Kristy Harris 05/07/21 14:33: I SPOKE WITH PATTY TULIO AND SHE STATED PATIENT IS CURRENTLY SKILLED THERE BUT THEY ARE GOING TO TAKE HER BACK... Original Note: PATIENT PRESENTED INTO THE HOSPITAL ON 05/06 WITH RESPIRATORY DISTRESS AND COVID.. SHE IS A RESIDENT OF [facility] IN [facility].. WILL MAKE CONTACT WITH [facility] TO SEE IF PATIENT CAN RETURN WHEN MEDICALLY READY.. DISPOSITION UNCERTAIN...
[2021-05-07 08:15] LABS: Anion Gap 14.1 mEq/L (5-15); Blood Urea Nitrogen 19 mg/dl (7-17); Calcium 9.2 mg/dl (8.4-10.2); Carbon Dioxide 22 mmol/L (22.0-30.0); Chloride 101 mmol/L (98-107); Creatinine Clearance Estimated 62 mL/min (50-200); Estimated Glomerular Filt Rate 98 ml/min (>60); GFR (African American) 118 ML/MIN (>60); Glucose 281 mg/dl (74-100); Magnesium 1.8 mg/dl (1.6-2.3); Potassium 4.1 mmoL/L (3.5-5.1); Sodium 133 mmol/L (136-145)
--- NOTE | 2021-05-07 09:20 | HMH.PULMCON ---
*Admission Date: 05/07/21 *History of present illness: Ms. Van is a 75-year-old female who recently presented to the hospital with COVID-19 pneumonia and intubation mechanical ventilatory support, discharged on 2 L nasal cannula presented to the hospital developing respiratory distress and pulmonary was called for further management. [facility] History Medical History: Reports:: Diabetes Mellitus Type 1, Diabetes Mellitus Type 2, Hypertension Denies:: Cancer, MRSA *Have you ever received a pneumonia vaccine?: Yes *Have you received a flu vaccine this season?: Yes Other Medical History: Reports: Anemia Laterality Cases: Left: Arthroscopy Knee, Arthroscopy Shoulder Other Surgeries: Yes: Appendectomy, Other Amputation: No - *Social History Smoking Status: Never smoker # Packs/Day (cigarettes): 1 Alcohol Intake: never *Occupational Status:: retired Housing: house *Travel in the last 8 weeks: None Family Hx:: No significant family history ROS - Cons Reports body ache(s), Reports chills - Eyes Denies change in vision - ENT Denies bleeding gums, Denies difficulty swallowing - Card Reports shortness of breath, Reports shortness of breath with activity - Resp Respiratory: Reports shortness of breath, Reports change in phlegm color, Reports chest congestion, Reports excessive phlegm production, Denies coughing up blood, Denies pain on inspiration, Reports cough with sputum production - GI Gastrointestingal: Denies: abdominal pain - Musk Musculoskeletal: Reports back pain, Reports muscle aches - Psych Denies thoughts of hurting/killing others, Denies thoughts of hurting/killing yourself Meds Home Medications Medication Instructions Recorded Confirmed Type Albuterol Sulfate [Albuterol 2 puff IH Q4HP PRN 04/27/21 05/06/21 History Sulfate Hfa] Atorvastatin Calcium [Lipitor 20mg 20 mg PO HS 04/27/21 05/06/21 History Tab] Escitalopram Oxalate 20 mg PO DAILY 04/27/21 05/06/21 History Fluticasone Propionate [Flonase 1 spr NS BID 04/27/21 05/06/21 History 50mcg nasal spray 16gm] Gabapentin 800 mg PO TID 04/27/21 05/06/21 History Linagliptin [Tradjenta 5mg tablet] 5 mg PO DAILY 04/27/21 05/06/21 History Memantine HCl [Namenda XR 7MG] 7 mg PO DAILY 04/27/21 05/06/21 History Methylnaltrexone [place] [Relistor] 450 mg PO DAILY 04/27/21 05/07/21 History Milnacipran HCl [Savella] 100 mg PO BID 04/27/21 05/06/21 History Mirabegron [Myrbetriq] 50 mg PO DAILY 04/27/21 05/06/21 History Montelukast Sodium [Singulair 10mg 10 mg PO PM 04/27/21 05/06/21 History tablet] Multivitamin 1 each PO DAILY 04/27/21 05/06/21 History Omeprazole [Omeprazole 40mg 40 mg PO BID 04/27/21 05/06/21 History Capsule] Oxycodone HCl 15 mg PO Q6HP PRN 04/27/21 05/06/21 History Plecanatide [Trulance] 3 mg PO DAILY 04/27/21 05/06/21 History Ropinirole HCl [Requip 1mg Tablet] 1 mg PO TID 04/27/21 05/06/21 History Umeclidinium [place] [Incruse 1 puff IH DAILY 04/27/21 05/06/21 History Ellipta] cycloSPORINE [Restasis] 1 each OP BID 04/27/21 05/06/21 History polyethylene glycoL 3350 [Miralax 17 gm PO DAILY 04/27/21 05/06/21 History 17gm Packet] Acetaminophen 1,000 mg PO Q8HP PRN 04/28/21 05/07/21 History Aspirin 81 mg PO DAILY 04/28/21 05/06/21 History Bisacodyl [Women's Gentle Laxative] 10 mg PO DAILYP PRN 04/28/21 05/06/21 History Fluticasone/Vilanterol [Breo 1 inh IH DAILY 04/28/21 05/06/21 History Ellipta 200-25 Mcg INH] Sennosides [Senna] 8.6 mg PO HS 04/28/21 05/06/21 History Amiodarone HCl [Amiodarone 400mg 400 mg PO DAILY 05/07/21 05/07/21 History Tab] Cetirizine HCl [Zyrtec] 10 mg PO DAILY 05/07/21 05/07/21 History Cholecalciferol (Vitamin D3) 1 cap PO WEEKLY 05/07/21 05/07/21 History [Vitamin D3 50,000 unit Cap] Ferrous Sulfate [Ferrous Sulfate 325 mg PO BID 05/07/21 05/07/21 History 325mg Tablet] Furosemide [Furosemide 40MG tAB*] 40 mg PO BID PRN 05/07/21 05/07/21 History Levothyroxine Sodium 100 mcg PO
--- NOTE | 2021-05-07 09:24 | HMH.PHAINT ---
verified pt home meds with list from skilled nursing
--- NOTE | 2021-05-07 09:30 | P.PN_ITS ---
Internal Medicine - PN: Subj *Date: 05/07/21 *Time: 09:30 Assessment and Plan - Assessment and plan all Dx Assessment and Plan for all problems:: #Acute hypoxic respiratory failure: #COVID-19 pneumonia: #History of DVT: # Recurrent DVT: 79-year-old male prior smoker, greater than 53-dkdb-dxit smoking history. Not yet vaccinated. COVID-19 PCR positive. Flu panel negative CRP elevated at 54.7 on admission. On home anticoagulation apixaban 5 twice daily. DImer elevated at 0.74 ABG on admission showed metabolic acidosis with respiratory compensation with a PO2 of 76.4 and a PCO2 of 29.2 with a pH of 7.43 Chest x-ray on admission with bilateral diffuse groundglass opacities along with patchy consolidative lesion in the left lower lobe along with dense infiltrate in the right lower lobe. Sternal wires present. Cardiomegaly. Lower extremity Doppler positive for DVT. Patient has a history of DVT from May 2020 as per the patient and has been on anticoagulation since then. Initiated on Coumadin for treatment failure. Sputum growing Enterobacter aerogenes, which is sensitive to ceftriaxone. Nasal MRSA PCR negative. Blood cultures no growth 5 days Completed 5-day course of azithromycin. Patient received methylprednisolone 125 every 6 hours for 3 days and was changed to prednisone 60 mg on 05/02/21 which was eventually discontinued given worsening leukocytosis and concern for infectious etiology. Patient antibiotics were escalated to meropenem. Patient respiratory status gradually declining significantly worsening pulmonary recommend treating patient on mechanical ventilatory support on 05/05/2021. Interval update: Continue to receive meropenem and micafungin.. Plan: -Continue sedation with propofol and fentanyl. Continue mechanical ventilatory support.Worsening hypercarbia this morning, pre dominantly respiratory. We will increase minute ventilation. We will also increase his FiO2. Chest X improved when compared to 1 from prior to intubation. ET tube in place. Left subclavian central line. INR now at 7.83. Will discontinue warfarin and start the patient on heparin drip -Relatively stable leukocytosis of 25. Continue to receive meropenem and micafungin. Blood cultures no growth 48 hours. Sputum gram-negative diplococci and budding yeast. Hemodynamically stable. Not on any pressors. Abdomen soft nontender. Continue tube feeds. - Continue mechanical ventilatory support - Continue AnalgoSedation with Propofol and Fentanyl with CPOT gal less than or euqal to 2 and RASS goal of to 2 (No need for deep sedation) - VAP bundle Elevate head of the bed at 30 to 45 degrees Oral care with chlorhexidne GI ulcer prophylaxis - Famotidine 20mg IV BID Chemical DVT prophylaxis #Thank for involving pulmonary in this patient care. We will continue to follow .
--- NOTE | 2021-05-07 09:38 | HMH.HP ---
*Admission Date: 05/07/21 <Mellisa Don 05/07/21 09:38> *Chief complaint: History of COVID-19 pneumonia, hypoxic respiratory failure <Adair Christianson 05/07/21 11:19> *History of present illness: Ms. Van is a 75-year-old female who recently presented to the hospital with COVID-19 pneumonia and intubation mechanical ventilatory support, discharged on 2 L nasal cannula presented to the hospital developing respiratory distress and pulmonary was called for further management. <Adair Christianson 05/07/21 11:19> [facility] History I have reviewed the patient's past medical history: Yes <Mellisa Don 05/07/21 17:02> Medical History: Reports:: Diabetes Mellitus Type 1, Diabetes Mellitus Type 2, Hypertension Denies:: Cancer, MRSA <Mellisa Don 05/07/21 09:38> *Have you ever received a pneumonia vaccine?: Yes <Mellisa Don 05/07/21 09:38> *Have you received a flu vaccine this season?: Yes <Mellisa Don 05/07/21 09:38> Other Medical History: Reports: Anemia <Mellisa Don 05/07/21 09:38> Laterality Cases: Left: Arthroscopy Knee, Arthroscopy Shoulder <Mellisa Don 05/07/21 09:38> Other Surgeries: Yes: Appendectomy, Other <Mellisa Don 05/07/21 09:38> Amputation: No <Mellisa Don 05/07/21 09:38> - *Social History Smoking Status: Never smoker <Mellisa Don 05/07/21 09:38> # Packs/Day (cigarettes): 1 <Mellisa Don 05/07/21 09:38> Alcohol Intake: never <Mellisa Don 05/07/21 09:38> *Occupational Status:: retired <Mellisa Don 05/07/21 09:38> Housing: house <Mellisa Don 05/07/21 09:38> *Travel in the last 8 weeks: None <Mellisa Don 01/24/22 09:38> Family Hx:: No significant family history <ArianPatriamaryulises 05/07/21 09:38> Review of Systems - Constitutional Denies anorexia <ManjinderleviPatriaestiven 05/07/21 17:02> Reports body ache(s), Reports chills <[facility] 05/07/21 11:19> - Eyes Denies blurry vision <ManjinderMellisa sims 05/07/21 17:02> Denies change in vision <[facility] 05/07/21 11:19> - ENT Denies bleeding gums <ManjinderleviPatriaestiven 05/07/21 17:02> Denies change in voice, Denies difficulty swallowing <[facility] 05/07/21 11:19> - *Cardiovascular Denies chest pain at rest <andrePatriamary 05/07/21 17:02> Reports shortness of breath, Reports shortness of breath with activity <[facility] 05/07/21 11:19> - *Respiratory Reports shortness of breath, Reports shortness of breath with activity, Reports excessive phlegm production, Denies change in phlegm color <ManjinderleviPatriamary05/07/21 17:02> Reports chest congestion, Reports cough, Reports shortness of breath with activity, Reports excessive phlegm production <[facility] 05/07/21 11:19> - *Gastrointestinal Denies abdominal pain <ManjinderleviPatriamary05/07/21 17:02> Denies difficulty swallowing <[facility] 05/07/21 11:19> - *Genitourinary Denies abnormal periods <ManjinderleviPatriaestiven 05/07/21 17:02> - *Musculoskeletal Denies joint pain <ManjinderleviPatriaestiven 05/07/21 17:02> Reports limited joint movement, Reports muscle cramps <[facility] 05/07/21 11:19> - Integumentary/Breasts Denies sores <ArianPatriaestiven 05/07/21 17:02> - *Neurologic Denies abnormal walking, Denies headache(s), Denies seizure-like activity <Mellisa Don - 05/07/21 17:02> - Psychiatric Reports anxiety, Denies lack of enjoyment <Mellisa Don 05/07/21 17:02> Denies thoughts of hurting/killing others, Denies thoughts of hurting/killing yourself <Adair Christianson - 05/07/21 11:19> - Endocrine Denies flushing <Mellisa Don - 05/07/21 17:02> - Hematologic/Lymphatic Denies easy bruising <Mellisa Don
[2021-05-07 09:41] LABS: Lymphocytes % 12 % (10-50); Monocytes % 2 % (2-9); Neutrophils % 86 % (42-76); Platelet Estimate Normal; Total Cells Counted 100
[2021-05-07 09:42] LABS: RBC Morphology Normal
[2021-05-07 09:51] LABS: C-Reactive Protein 192.2 mg/L (0-4)
[2021-05-07 21:33] LABS: POC Glucose,Bedside 286 (70-110)
[2021-05-07 21:33] LABS: POC Glucose,Bedside 329 (70-110)
[2021-05-08] VITALS (8 sets, daily range): BP systolic 155–170; BP diastolic 62–84; PULSE 73–88; RESP 18–31; TEMP 36.6–38.4; O2SAT 90–100; BMI 29.5; BMI 29.3
[2021-05-08 06:09] LABS: POC Glucose,Bedside 240 (70-110)
--- NOTE | 2021-05-08 06:18 | PC.NURSE ---
A&OX4. FOR MAJORITY OF SHIFT, PT TOLERATED VAPOTHERM. VAPOTHERM TURNED UP TO 40/100 @ APX 0130. TOLERATED FOR A FEW HOURS. PT O2 SAT 78-79%, APPLIED NON-REBREATHER. O2 SAT CONTINUED TO BE IN LOW 80S. CONTACTED MARKETING PR INTERN MD SOLIS-ADVISED TO PROCEED WITH BIPAP AT THIS TIME. PT TOLERATING WELL, O2 AT 99% AT THIS TIME. F/C DRAINING DARK YELLOW URINE. PT STATES I AM JUST TIRED. CODE STATUS VISITED AGAIN AT THIS TIME AND PT WISHES TO REMAIN FC. PT HAS C/O BACK PAIN MULTIPLE TIMES THIS SHIFT-TX PER JUN. RESTING IN BED AT THIS TIME. VSS WILL CONTINUE TO MONITOR.
[2021-05-08 06:58] LABS: Oxygen 100 %; Vent Rate 18
[2021-05-08 06:59] LABS: ABG HCO3 20.4 mmhg (22.0-26.0); ABG PCO2 31.9 mmhg (35.0-45.0); ABG PH 7.42 mmol/L (7.35-7.45); ABG PO2 90.7 mmhg (80-100); ABG TCO2 21.3 mmhg (23-27); Allen's Test ACCEPTABLE; Lactate Arterial 1.3 mmol/L (0.4-2.0); Source Left Radial
[2021-05-08 07:00] LABS: ABG Base Excess -4.1 mmol/L (-2.4-2.3); ABG Oxygen Saturation 97 % (90-100)
--- NOTE | 2021-05-08 09:32 | HMH.ACPN2 ---
Internal Medicine - PN: Subj *Date: 05/08/21 *Time: 19:27 Interval history: 75 YOF lying in bed on BiPAP, she reports she was short of breath and was transitioned from Vapotherm to BiPAP, reports she is still short of breath. Current oxygenation 90% on BiPAP 158 90% Exam Vital signs and Labs for Last 24 Hours: Temp Pulse Resp BP Pulse Ox 98.2 F 77 22 160/80 H 90 L 05/08/21 04:46 05/08/21 04:46 05/08/21 04:46 05/08/21 04:46 05/08/21 04:46 Laboratory Results - last 24 hr 05/07/21 06:25: Total Counted 100, Neutrophils % (Manual) 86 H, Lymphocytes % (Manual) 12, Monocytes % (Manual) 2, Platelet Estimate Normal, RBC Morphology Normal 05/07/21 06:25: C-Reactive Protein 192.2 H 05/07/21 12:22: POC Glucose 329 H* 05/07/21 20:49: POC Glucose 286 H 05/08/21 04:56: POC Glucose 240 H 05/08/21 06:57: Specimen Source Left radial, O2 % 100, ABG pH 7.42, ABG pCO2 31.9 L, ABG pO2 90.7, ABG HCO3 20.4 L, ABG Total CO2 21.3 L, ABG O2 Saturation 97, ABG Base Excess -4.1 L, Tru Test Acceptable, ABG Lactate 1.3, Vent Rate 18 I & O for Last 24 hours: Intake & Output 05/05/21 05/06/21 05/07/21 05/08/21 23:59 23:59 23:59 23:59 Intake Total 1000 / 1000 840 / 840 Output Total 2600 / 3420 820 / 820 Balance 1000 / -600 -1760 / -2580 -820 / -820 Weight 174 lb 8 oz 177 lb 0.499 oz Microbiology Reports for the Last 24 Hours: Microbiology 05/06/21 22:04 Urine,Catheterized Urine Culture - Preliminary NO GROWTH AFTER 24 HOURS - Constitutional mild distress - *Routine HEENT Exam Head: Present: normocephalic Eye: Present: EOMI ENT: Present: mucous membranes moist - *Routine Neck Exam Present: trachea midline. Absent: tracheal deviation - *Routine Respiratory Exam Present: rales, wheezes - *Routine Cardiovascular Exam Present: RRR - *Routine Abdominal Exam Present: soft, normoactive bowel sounds. Absent: firm - *Routine Extremities Exam Present: full ROM, pulses intact. Absent: cyanosis - *Routine Skin Exam Present: intact, dry. Absent: cyanosis - *Routine Neurological Exam Present: alert, oriented X3. Absent: motor deficit - Routine Psychiatric Exam Present: normal affect, normal thought process. Absent: visual hallucinations Assessment and Plan (1) Diabetes 1.5, managed as type 2 Status: Acute Category: Medical Code(s): E13.9 - Other specified diabetes mellitus without complications (2) Obesity (BMI 30-39.9) Status: Acute Category: Medical Code(s): E66.9 - Obesity, unspecified (3) Pneumonia due to COVID-19 virus Status: Acute Category: Medical Code(s): U07.1 - COVID-19; J12.82 - Pneumonia due to coronavirus disease 2019 (4) Hypertension Status: Chronic Qualifiers: Hypertension type: unspecified Qualified Code(s): I10 - Essential (primary) hypertension Category: Medical Code(s): I10 - Essential (primary) hypertension - Assessment and plan all Dx Assessment and Plan for all problems:: Rounded with Dr. Teague, all orders per Dr. Teague: 1. Wean oxygen as jany 2. Pulmonary following
--- NOTE | 2021-05-08 10:06 | XR_ITS ---
FINAL REPORT CLINICAL HISTORY: Hyppoxia, covid FINDINGS: SINGLE VIEW CHEST There is mild cardiomegaly. The mediastinum is unremarkable. There is no pneumothorax. Stimulator leads are seen in the midthoracic spine. There are mixed interstitial and airspace infiltrates at the bases. Bilateral shoulder prostheses are identified. IMPRESSION: Mixed interstitial and airspace infiltrates. Recommend follow-up. Reviewed, Interpreted and Dictated by Ketan Sidhu MD Transcribed by Wendy Rosado Authenticated by Ketan Sidhu MD on 05/08/2021 11:58:56 AM [facility]
[2021-05-08 10:31] LABS: Anion Gap 13.2 mEq/L (5-15); Blood Urea Nitrogen 19 mg/dl (7-17); Calcium 9.1 mg/dl (8.4-10.2); Carbon Dioxide 22 mmol/L (22.0-30.0); Chloride 106 mmol/L (98-107); Creatinine Clearance Estimated 63 mL/min (50-200); Estimated Glomerular Filt Rate 98 ml/min (>60); GFR (African American) 118 ML/MIN (>60); Glucose 174 mg/dl (74-100); Potassium 4.2 mmoL/L (3.5-5.1); Sodium 137 mmol/L (136-145)
[2021-05-08 10:45] LABS: Basophils # 0.1 K/mm3 (0-0.2); Basophils % 0.3 % (0.1-2.0); Eosinophils # 0.2 K/mm3 (0.0-0.4); Eosinophils % 1.6 % (0.1-12.0); Hemoglobin 10.8 g/dL (12.2-16.2); Lymphocytes # 0.9 K/mm3 (0.7-4.5); Lymphocytes % 5.7 % (10-50); Mean Corpuscular HGB Conc 32.6 g/dL (31.8-35.4); Mean Corpuscular Hemoglobin 28.7 pg (27.0-31.2); Mean Platelet Volume 7.8 fl (7.4-10.4); Monocytes # 0.4 K/mm3 (0.1-1.0); Neutrophils # 13.3 K/mm3 (1.8-7.8); Neutrophils % 89.3 % (37.0-80.0); Platelet Count 417 K/mm3 (142-424); Red Blood Count 3.75 M/mm3 (4.20-5.40); Red Cell Distribution Width 16.3 % (11.5-17.5); White Blood Count 14.8 K/mm3 (4.8-10.8)
[2021-05-08 11:17] LABS: MANUAL DIFFERENTIAL MANUAL DIFFERENTIAL (MANUAL DIFF)
[2021-05-08 11:38] LABS: POC Glucose,Bedside 354 (70-110)
[2021-05-08 11:39] LABS: POC Glucose,Bedside 210 (70-110)
--- NOTE | 2021-05-08 13:13 | HMH.PULMPN ---
Internal Medicine - PN: Subj *Date: 05/08/21 *Time: 13:13 Interval history: Patient noted to have worsening oxygen requirements. Admits worsening respiratory symptoms. Exam - Constitutional Constitutional:: Absent: no acute distress, comfortable - HENMT Exam HENMT: Present: normocephalic, atraumatic - Eye Exam Eyes:: Present: normal appearance both eyes and related structures - Neck Exam Neck:: Present: normal visual inspection - Respiratory Exam Respiratory:: Present: respiratory distress, crackles, wheezing. Absent: able to speak in complete sentences - Cardiovascular Exam Cardiac:: Present: S1, S2 - GI Exam GI:: Present: soft, no hepatosplenomegaly - Skin Exam Skin: Present: warm, no rash - Neurological Exam Neurological: Present: alert, awake, normal cognition - Extremities Exam Extremities: Present: no cyanosis, no clubbing, edema Assessment and Plan (1) Diabetes 1.5, managed as type 2 Status: Acute Category: Medical Code(s): E13.9 - Other specified diabetes mellitus without complications (2) Obesity (BMI 30-39.9) Status: Acute Category: Medical Code(s): E66.9 - Obesity, unspecified (3) Pneumonia due to COVID-19 virus Status: Acute Category: Medical Code(s): U07.1 - COVID-19; J12.82 - Pneumonia due to coronavirus disease 2019 (4) Hypertension Status: Chronic Qualifiers: Hypertension type: unspecified Qualified Code(s): I10 - Essential (primary) hypertension Category: Medical Code(s): I10 - Essential (primary) hypertension - Assessment and plan all Dx Assessment and Plan for all problems:: #History of COVID-19 pneumonia: #Hospital-acquired pneumonia: Ms. Van is a 75-year-old female recently admitted to the hospital with worsening respiratory failure and COVID-19 needing intubation and mechanical ventilatory support, extubated and was discharged home on a 2 L nasal cannula along with continuation of levofloxacin to complete a 7-day course (received vancomycin and cefepime prior to this) presented to the hospital again with worsening respiratory distress pulmonary was called for further management. Worsenign Leucocytosis Renal function stable. CTA performed on admission and did not show any notes of pulmonary embolism, bilateral worsening groundglass opacities and patchy airspace disease. Improved bilateral effusion. started on Ertapenem. Interval update: Patient respiratory status continued to worsen eventually placed on BiPAP needing 100% FiO2 to maintain her saturations at 90% and above. Patient could not tolerate weaning FiO2. Chest x-ray from this morning slightly improved from prior. Slight worsening leukocytosis. Continue to remain afebrile. Hemodynamically stable. Stable renal function. Plan: -Stepdown level of care. -IV Lasix -Continue BiPAP 14/8 100% FiO2 maintain O2 saturation goal of 88% and above. -Continue Cefepime for hospital-acquired pneumonia. F/u sputum culture, blood culture and nasal MRSA PCR. -CRP significantly elevated to 192 from her recent admission at 8. F/u infectious workup. -DuoNebs every 6 hours scheduled along budedsonide every 12 scheduled. Thank you involving pulmonary in this patient. We will continue to follow.
[2021-05-08 14:15] LABS: Anisocytosis 1+; Eosinophils % 1 % (0-3); Hypochromasia 1+; Lymphocytes % 5 % (10-50); Microcytosis 1+; Monocytes % 5 % (2-9); Neutrophils % 87 % (42-76); Platelet Estimate Normal; Total Cells Counted 100
--- NOTE | 2021-05-08 19:52 | PC.NURSE ---
patient has done okay this shift. has wanted staff to remain in room with her at times. she is not liking the bipap mask and wanted to take it off , redirected and educated multiple times of risks. did take off long enough for meds. would do okay shortly but would drop. has not tolerated weaning of bipap. this evening does appear more dusky, and has more belly breathing while asleep. this was relayed to dr. ceballos who was on floor and he ordered an iv dose of 80 mg of lasix. also mentioned elevated bp to him. rings out as needed. at this time vitals stable
[2021-05-09] VITALS (19 sets, daily range): BP systolic 74–136; BP diastolic 33–64; PULSE 58–70; RESP 18–33; TEMP 36.8–38.2; O2SAT 91–100; BMI 30.4
--- NOTE | 2021-05-09 03:45 | PC.NURSE ---
Beginning of shift pt was medicated for fever per JUN. pt became restless wanting BIPAP taken off. One time dose of hadol given per JUN pt has rested quietly. VSS pt remain on 100% bipap with O2 sat 95-100%
[2021-05-09 07:22] LABS: Basophils % 0.5 % (0.1-2.0); Eosinophils % 2.1 % (0.1-12.0); Hematocrit 31.4 % (37.0-47.0); Hemoglobin 10.4 g/dL (12.2-16.2); Lymphocytes % 4.8 % (10-50); Mean Corpuscular HGB Conc 33.1 g/dL (31.8-35.4); Mean Corpuscular Hemoglobin 28.6 pg (27.0-31.2); Mean Corpuscular Volume 86.4 fl (81-99); Mean Platelet Volume 8.9 fl (7.4-10.4); Monocytes % 3.5 % (1.7-9.3); Neutrophils # 14.6 K/mm3 (1.8-7.8); Neutrophils % 89.1 % (37.0-80.0); Platelet Count 405 K/mm3 (142-424); Red Blood Count 3.63 M/mm3 (4.20-5.40); Red Cell Distribution Width 16.3 % (11.5-17.5); White Blood Count 16.4 K/mm3 (4.8-10.8)
[2021-05-09 07:23] LABS: Basophils # 0.1 K/mm3 (0-0.2); Eosinophils # 0.3 K/mm3 (0.0-0.4); Lymphocytes # 0.8 K/mm3 (0.7-4.5); Monocytes # 0.6 K/mm3 (0.1-1.0)
[2021-05-09 07:25] LABS: MANUAL DIFFERENTIAL MANUAL DIFFERENTIAL (MANUAL DIFF)
[2021-05-09 08:34] LABS: Eosinophils % 3 % (0-3); Lymphocytes % 8 % (10-50); Monocytes % 3 % (2-9); Neutrophils % 86 % (42-76); Total Cells Counted 100
[2021-05-09 08:35] LABS: Anisocytosis 2+; Microcytosis 2+; Platelet Estimate Normal
--- NOTE | 2021-05-09 09:16 | HMH.PULMPN ---
Internal Medicine - PN: Subj *Date: 05/09/21 *Time: 11:32 Interval history: No acute respite events overnight. Patient continued to remain BiPAP dependent. Exam - Constitutional Constitutional:: Present: no acute distress, comfortable - HENMT Exam HENMT: Present: normocephalic, atraumatic - Eye Exam Eyes:: Present: normal appearance both eyes and related structures - Neck Exam Neck:: Present: normal visual inspection - Respiratory Exam Respiratory:: Present: respiratory distress, crackles, rales. Absent: able to speak in complete sentences - Cardiovascular Exam Cardiac:: Present: S1, S2 - GI Exam GI:: Present: soft, no hepatosplenomegaly Comments: Ventral hernia - Skin Exam Skin: Present: warm - Neurological Exam Neurological: Present: alert, awake, normal cognition - Extremities Exam Extremities: Present: no cyanosis, no clubbing, edema Assessment and Plan (1) Diabetes 1.5, managed as type 2 Status: Acute Category: Medical Code(s): E13.9 - Other specified diabetes mellitus without complications (2) Obesity (BMI 30-39.9) Status: Acute Category: Medical Code(s): E66.9 - Obesity, unspecified (3) Pneumonia due to COVID-19 virus Status: Acute Category: Medical Code(s): U07.1 - COVID-19; J12.82 - Pneumonia due to coronavirus disease 2019 (4) Hypertension Status: Chronic Qualifiers: Hypertension type: unspecified Qualified Code(s): I10 - Essential (primary) hypertension Category: Medical Code(s): I10 - Essential (primary) hypertension - Assessment and plan all Dx Assessment and Plan for all problems:: #History of COVID-19 pneumonia: #Hospital-acquired pneumonia: Ms. Van is a 75-year-old female recently admitted to the hospital with worsening respiratory failure and COVID-19 needing intubation and mechanical ventilatory support, extubated and was discharged home on a 2 L nasal cannula along with continuation of levofloxacin to complete a 7-day course (received vancomycin and cefepime prior to this) presented to the hospital again with worsening respiratory distress pulmonary was called for further management. Worsenign Leucocytosis Renal function stable. CTA performed on admission and did not show any notes of pulmonary embolism, bilateral worsening groundglass opacities and patchy airspace disease. Improved bilateral effusion. started on Ertapenem on admission changed to cefepime -CRP significantly elevated to 192 from her recent admission at 8. Interval update: Respiratory remained relatively stable since yesterday, currently on BiPAP. Low-grade fevers. Saturations improved. Continue to receive diuresis. Slight worsening leukocytosis. Renal function stable. Blood and urine cultures no growth so far. Plan: -Continue IV diuresis. F/U BMP. Net negative volume status -Methylprednisolone 125 every 12 hours. -Continue BiPAP 14/8 100% FiO2 maintain O2 saturation goal of 88% and above. -Continue Cefepime for hospital-acquired pneumonia. F/u sputum culture, blood culture and nasal MRSA PCR. -DuoNebs every 6 hours scheduled along budedsonide every 12 scheduled. Thank you involving pulmonary in this patient. We will continue to follow.
--- NOTE | 2021-05-09 10:28 | DIET.NUTRFU ---
Addendum entered by Beverly Esparza RD, LD 05/09/21 12:41: oral intake at this time poor, 0% all day yesterday, added glucerna to all trays to help meet needs if consumed. Original Note: RD rounded with physician today. Patient does not want to wear bipap mask. Patient expressed possible hospital wishes. Provider will review wishes with family. If intubated and in need of tube feeding, recommendation includes Pulmocare at goal rate of 60 mL/hr, providing 2070 kcal, 86 g pro, and 1083 mL of free h2o. Would start flush at 170 ml/hr q4hr = 1020 mL, increase flush if IVF are discontinued.
[2021-05-09 11:27] LABS: POC Glucose,Bedside 242 (70-110)
[2021-05-09 11:27] LABS: POC Glucose,Bedside 211 (70-110)
[2021-05-09 11:55] LABS: POC Glucose,Bedside 244 (70-110)
--- NOTE | 2021-05-09 13:27 | HMH.ACPN2 ---
Internal Medicine - PN: Subj *Date: 05/09/21 *Time: 08:20 Interval history: pt anxious and asking to remove bipap. discussed with pt if she did she would need intubated or she could have a bad outcome. pt states she wants to and she wants hospice. I called daughter marysol and she is on her way to [facility] and will talk with mom and staff. Exam Vital signs and Labs for Last 24 Hours: Temp Pulse Resp BP Pulse Ox 100.7 F H 68 32 H 125/50 L 100 05/09/21 04:00 05/09/21 04:00 05/09/21 04:00 05/09/21 04:00 05/09/21 04:00 Laboratory Results - last 24 hr 05/08/21 10:35: Total Counted 100, Neutrophils % (Manual) 87 H, Lymphocytes % (Manual) 5 L, Monocytes % (Manual) 5, Eosinophils % (Manual) 1, Blast Cells % 2.0, Platelet Estimate Normal, Hypochromasia 1+, Anisocytosis 1+, Microcytosis 1+ 05/08/21 16:04: POC Glucose 242 H 05/08/21 21:03: POC Glucose 211 H 05/09/21 06:29: WBC 16.4 H, RBC 3.63 L, Hgb 10.4 L, Hct 31.4 L, MCV 86.4, MCH 28.6, MCHC 33.1, RDW 16.3, Plt Count 405, MPV 8.9, Neut % (Auto) 89.1 H, Lymph % (Auto) 4.8 L, [place] % (Auto) 3.5, Eos % (Auto) 2.1, Baso % (Auto) 0.5, Neut # (Auto) 14.6 H, Lymph # (Auto) 0.8, [place] # (Auto) 0.6, Eos # (Auto) 0.3, Baso # (Auto) 0.1, Total Counted 100, Neutrophils % (Manual) 86 H, Lymphocytes % (Manual) 8 L, Monocytes % (Manual) 3, Eosinophils % (Manual) 3, Platelet Estimate Normal, Anisocytosis 2+, Microcytosis 2+ 05/09/21 11:29: POC Glucose 244 H I & O for Last 24 hours: Intake & Output 05/07/21 05/08/21 05/09/2127/22 11:59 11:59 11:59 11:59 Intake Total 1240 / 1240 660 / 660 0 / 0 Output Total 1600 / 1600 1820 / 1820 1725 / 1725 Balance -360 / -360 -1160 / -1160 -1725 / -1725 Weight 174 lb 8 oz 177 lb 0.499 oz 182 lb 8 oz Microbiology Reports for the Last 24 Hours: Microbiology 05/06/21 22:04 Urine,Catheterized Urine Culture - Final NO GROWTH AFTER 48 HOURS 05/06/21 18:55 Blood Blood Culture - Preliminary NO GROWTH AFTER 48 HOURS 05/06/21 18:55 Blood Blood Culture - Preliminary NO GROWTH AFTER 48 HOURS - Constitutional mild distress - *Routine HEENT Exam Head: Present: normocephalic Eye: Present: PERRL ENT: Present: mucous membranes moist - *Routine Neck Exam Present: supple. Absent: lymphadenopathy - *Routine Respiratory Exam Present: decreased breath sounds, rhonchi - *Routine Cardiovascular Exam Present: RRR - *Routine Abdominal Exam Present: soft, normoactive bowel sounds. Absent: tenderness - *Routine Extremities Exam Absent: cyanosis, clubbing, edema - *Routine Skin Exam Present: warm. Absent: rash - *Routine Neurological Exam Present: alert Assessment and Plan (1) Diabetes 1.5, managed as type 2 Status: Acute Category: Medical Code(s): E13.9 - Other specified diabetes mellitus without complications (2) Obesity (BMI 30-39.9) Status: Acute Category: Medical Code(s): E66.9 - Obesity, unspecified (3) Pneumonia due to COVID-19 virus Status: Acute Category: Medical Code(s): U07.1 - COVID-19; J12.82 - Pneumonia due to coronavirus disease 2019 (4) Hypertension Status: Chronic Qualifiers: Hypertension type: unspecified Qualified Code(s): I10 - Essential (primary) hypertension Category: Medical Code(s): I10 - Essential (primary) hypertension - Assessment and plan all Dx Assessment and Plan for all problems:: rounded with dr call all orders per dr call pulm consult
[2021-05-09 13:55] LABS: ABG Base Excess -0.6 mmol/L (-2.4-2.3); ABG HCO3 23.2 mmhg (22.0-26.0); ABG Oxygen Saturation 82 % (90-100); ABG PCO2 33.5 mmhg (35.0-45.0); ABG PH 7.46 mmol/L (7.35-7.45); ABG TCO2 24.3 mmhg (23-27)
[2021-05-09 13:57] LABS: Chloride 104 mmol/L (98-107)
[2021-05-09 13:57] LABS: ABG PO2 44.4 mmhg (80-100); Allen's Test acceptable; Oxygen 70 %; Tidal Volume 14/8
[2021-05-09 13:58] LABS: Sodium 137 mmol/L (136-145)
[2021-05-09 14:00] LABS: Alanine Aminotransferase 17 U/L (12-78); Alkaline Phosphatase 207 U/L (38-126); Aspartate Amino Transferase 41 U/L (14-36); Blood Urea Nitrogen 27 mg/dl (7-17); Creatinine Clearance Estimated 65 mL/min (50-200); Estimated Glomerular Filt Rate 61 ml/min (>60); GFR (African American) 74 ML/MIN (>60)
[2021-05-09 14:01] LABS: Albumin/Globulin Ratio 0.9 (1.1-1.8); Calcium 8.5 mg/dl (8.4-10.2); Carbon Dioxide 26 mmol/L (22.0-30.0); Globulin 3.3 g/dL (1.3-3.2); Glucose 207 mg/dl (74-100); Total Protein,Serum 6.3 g/dl (6.3-8.2)
--- NOTE | 2021-05-09 14:36 | XR_ITS ---
FINAL REPORT CLINICAL HISTORY: confirm ETT placement and OG tube placement FINDINGS: The endotracheal tube terminates 2 cm superior to the rudy. The NG tube extends off the inferior extent of the image. The heart size is normal. The mediastinum is normal. There is mixed interstitial and airspace opacity particularly evident in the right mid lung. There are no pleural effusions. There is no pneumothorax. There is no osseous abnormality. IMPRESSION: ET and NG tubes as above. Mixed interstitial and airspace opacity could represent edema or pneumonia. Recommend continued follow-up. Reviewed, Interpreted and Dictated by Ketan Sidhu MD Transcribed by Carlin Ashford Authenticated by Ketan Sidhu MD on 05/09/2021 03:50:48 PM [facility]
[2021-05-09 14:49] LABS: Chloride 104 mmol/L (98-107); Potassium 4.1 mmoL/L (3.5-5.1); Sodium 137 mmol/L (136-145)
[2021-05-09 14:52] LABS: Anion Gap 11.1 mEq/L (5-15); Blood Urea Nitrogen 27 mg/dl (7-17); Calcium 8.3 mg/dl (8.4-10.2); Carbon Dioxide 26 mmol/L (22.0-30.0); Creatinine Clearance Estimated 65 mL/min (50-200); Estimated Glomerular Filt Rate 61 ml/min (>60); GFR (African American) 74 ML/MIN (>60); Glucose 202 mg/dl (74-100)
[2021-05-09 15:11] LABS: C-Reactive Protein 344.8 mg/L (0-4)
[2021-05-09 15:53] LABS: ABG Base Excess -2.1 mmol/L (-2.4-2.3); ABG HCO3 23.9 mmhg (22.0-26.0); ABG Oxygen Saturation 92 % (90-100); ABG PCO2 47.3 mmhg (35.0-45.0); ABG PH 7.32 mmol/L (7.35-7.45); ABG PO2 69.7 mmhg (80-100); ABG TCO2 25.4 mmhg (23-27)
[2021-05-09 16:02] LABS: Allen's Test ACCEPTABLE; Oxygen 60 %; PEEP 12; Tidal Volume 440; Vent Rate 20
[2021-05-09 16:03] LABS: Lactate Arterial 1.1 mmol/L (0.4-2.0); Source Left Radial
[2021-05-09 16:54] LABS: POC Glucose,Bedside 138 (70-110)
[2021-05-09 20:49] LABS: POC Glucose,Bedside 223 (70-110)
[2021-05-10] VITALS (41 sets, daily range): BP systolic 95–164; BP diastolic 33–58; PULSE 52–78; RESP 20–23; TEMP 35–36.9; O2SAT 96–100
[2021-05-10 01:14] LABS: POC Glucose,Bedside 295 (70-110)
--- NOTE | 2021-05-10 06:00 | XR_ITS ---
PROCEDURE INFORMATION: Exam: XR Chest Exam date and time: 05/10/2021 6:00 AM Age: 75 years old Clinical indication: Device placement; Ett placement (vent status); Additional info: Follow up post intubation TECHNIQUE: Imaging protocol: XR of the chest. Views: 1 view. COMPARISON: CR XR CHEST PORTABLE 05/09/2021 2:45 PM FINDINGS: Tubes, catheters and devices: ET tube is in good position. Nasogastric tube overlies the stomach. Lungs: Patchy right greater than left airspace disease is unchanged. Pleural spaces: Unremarkable. No pleural effusion. No pneumothorax. Heart/Mediastinum: Unremarkable. No cardiomegaly. Bones/joints: Unremarkable. IMPRESSION: Patchy right greater than left bilateral airspace disease unchanged.
[2021-05-10 07:48] LABS: ABG Base Excess -7.9 mmol/L (-2.4-2.3); ABG HCO3 18.3 mmhg (22.0-26.0); ABG Oxygen Saturation 97 % (90-100); ABG PCO2 36.7 mmhg (35.0-45.0); ABG PH 7.32 mmol/L (7.35-7.45); ABG PO2 107.5 mmhg (80-100); ABG TCO2 19.4 mmhg (23-27)
[2021-05-10 07:56] LABS: Allen's Test ACCEPTABLE; Oxygen 60 %; PEEP 12; Source R RADIAL; Tidal Volume 440; Vent Rate 20
[2021-05-10 08:41] LABS: Basophils % 0.8 % (0.1-2.0); Eosinophils % 0.2 % (0.1-12.0); Hematocrit 26.2 % (37.0-47.0); Hemoglobin 8.4 g/dL (12.2-16.2); Lymphocytes # 0.6 K/mm3 (0.7-4.5); Lymphocytes % 12.7 % (10-50); Mean Corpuscular HGB Conc 31.9 g/dL (31.8-35.4); Mean Corpuscular Hemoglobin 28.7 pg (27.0-31.2); Mean Corpuscular Volume 90.1 fl (81-99); Mean Platelet Volume 8.7 fl (7.4-10.4); Monocytes # 0.1 K/mm3 (0.1-1.0); Monocytes % 2.8 % (1.7-9.3); Neutrophils # 4.1 K/mm3 (1.8-7.8); Neutrophils % 83.5 % (37.0-80.0); Platelet Count 289 K/mm3 (142-424); Red Blood Count 2.91 M/mm3 (4.20-5.40); Red Cell Distribution Width 16.1 % (11.5-17.5); White Blood Count 4.9 K/mm3 (4.8-10.8)
[2021-05-10 09:00] LABS: Anion Gap 14.9 mEq/L (5-15); Blood Urea Nitrogen 49 mg/dl (7-17); Calcium 8.3 mg/dl (8.4-10.2); Carbon Dioxide 19 mmol/L (22.0-30.0); Chloride 108 mmol/L (98-107); Creatinine Clearance Estimated 50 mL/min (50-200); Estimated Glomerular Filt Rate 40 ml/min (>60); GFR (African American) 48 ML/MIN (>60); Glucose 257 mg/dl (74-100); Potassium 3.9 mmoL/L (3.5-5.1); Sodium 138 mmol/L (136-145)
[2021-05-10 09:01] LABS: Triglycerides 144 mg/dl (30-150)
--- NOTE | 2021-05-10 09:38 | HMH.PULMPN ---
Internal Medicine - PN: Subj *Date: 05/10/21 *Time: 14:30 Interval history: No acute respiratory events overnight. Exam - Constitutional Constitutional:: Present: no acute distress, comfortable - HENMT Exam HENMT: Present: normocephalic, atraumatic - Eye Exam Eyes:: Present: normal appearance both eyes and related structures - Neck Exam Neck:: Present: normal visual inspection - Respiratory Exam Respiratory:: Present: respiratory distress, crackles, rales. Absent: able to speak in complete sentences - Cardiovascular Exam Cardiac:: Present: S1, S2 - GI Exam GI:: Present: soft - Skin Exam Skin: Present: warm, no rash - Neurological Exam Neurological: Absent: alert, awake, normal cognition - Extremities Exam Extremities: Present: no cyanosis, no clubbing, no edema Assessment and Plan (1) Diabetes 1.5, managed as type 2 Status: Acute Category: Medical Code(s): E13.9 - Other specified diabetes mellitus without complications (2) Obesity (BMI 30-39.9) Status: Acute Category: Medical Code(s): E66.9 - Obesity, unspecified (3) Pneumonia due to COVID-19 virus Status: Acute Category: Medical Code(s): U07.1 - COVID-19; J12.82 - Pneumonia due to coronavirus disease 2019 (4) Hypertension Status: Chronic Qualifiers: Hypertension type: unspecified Qualified Code(s): I10 - Essential (primary) hypertension Category: Medical Code(s): I10 - Essential (primary) hypertension - Assessment and plan all Dx Assessment and Plan for all problems:: #History of COVID-19 pneumonia: #Hospital-acquired pneumonia: Ms. Van is a 75-year-old female recently admitted to the hospital with worsening respiratory failure and COVID-19 needing intubation and mechanical ventilatory support, extubated and was discharged home on a 2 L nasal cannula along with continuation of levofloxacin to complete a 7-day course (received vancomycin and cefepime prior to this) presented to the hospital again with worsening respiratory distress pulmonary was called for further management. CTA performed on admission and did not show any notes of pulmonary embolism, bilateral worsening groundglass opacities and patchy airspace disease. Improved bilateral effusion. started on Ertapenem on admission changed to cefepime -CRP significantly elevated to 192 from her recent admission at 8. Interval update: Patient respiratory gradually worsened yesterday needing intubation and mechanical ventilatory support. Renal function stable on repeat BMP.. Plan: -Intubated and sedated. Continue propofol and fentanyl. -Continue mechanical ventilatory support. Blood gas showed improving oxygenation, PEEP weaned to 10 and FiO2 to 60, continue to wean FiO2 as tolerated with O2 saturation goal 92% and above. Chest x-ray relatively unchanged. ET tube in place. Continue cefepime for hospital-acquired pneumonia along with methylprednisolone 125 every 12 hours. Blood and sputum cultures negative so far. Follow with nasal MRSA PCR result. DuoNebs every 6 hours scheduled along budedsonide every 12 scheduled. -Abdomen soft nontender, COntinue tube feeds. -Slightly increasing creatinine. Adequate urine output, received 1 L bolus yesterday. Hemodynamically stable not on any pressors. We will continue to monitor. We will hold off on further diuresis. -Continue mechanical ventilatory support - Continue AnalgoSedation with Propofol and Fentanyl with CPOT gal less than or euqal to 2 and RASS goal of to 2 (No need for deep sedation) - VAP bundle Elevate head of the bed at 30 to 45 degrees Oral care with chlorhexidne GI ulcer prophylaxis - Famotidine 20mg IV BID Chemical DVT prophylaxis Thank you involving pulmonary in this patient. We will continue to follow.
--- NOTE | 2021-05-10 10:03 | DIET.NUTRFU ---
Patient has been intubated and is able to begin TF. Pulmocare at goal rate of 60 mL/hr, will provide 2070 kcal, 86 g pro, and 1083 mL of free h2o. Would start flush at 170 cc q4hr = 1020 cc, increase flush if IVF are discontinued. IVF still ordered. Labs BUN 49H, Cr 1.3H, patient's fluid needs indicate lack of oral intake, TF will help to meet needs.
--- NOTE | 2021-05-10 10:04 | SW/DCPLANNER ---
Addendum entered by Norma Andrade 05/17/21 09:27: I have updated Venessa Chopra that this patients family has chose to withdraw all care at this time. Addendum entered by Norma Andrade 05/14/21 09:44: Updated patient information has been faxed to Venessa aviles/ [facility]. Patient remains intubated: discharge date is unknown at this time. Original Note: I have updated Venessa Chopra at [facility] regarding this patient. Patient admitted from [facility] under SNF level of care. Discharge date is unknown at this time.
--- NOTE | 2021-05-10 13:15 | DIET.NUTRFU ---
RD spoke to Dr. Christianson to review TF and formula options. He agreed to current TF to best meet nutritional needs: Pulmocare at goal rate of 60 mL/hr, will provide 2070 kcal, 86 g pro, and 1083 mL of free h2o.
[2021-05-10 14:25] LABS: POC Glucose,Bedside 248 (70-110)
[2021-05-10 14:25] LABS: POC Glucose,Bedside 328 (70-110)
--- NOTE | 2021-05-10 14:57 | HMH.ACPN2 ---
Internal Medicine - PN: Subj *Date: 05/10/21 *Time: 08:25 Interval history: vented and sedated Exam Vital signs and Labs for Last 24 Hours: Temp Pulse Resp BP Pulse Ox 97.1 F L 78 20 100/39 L 99 05/10/21 12:00 05/10/21 12:00 05/10/21 06:51 05/10/21 06:51 05/10/21 12:00 Laboratory Results - last 24 hr 05/09/21 05:18: POC Glucose 138 H 05/09/21 13:27: Sodium 137, Potassium 4.1, Chloride 104, Carbon Dioxide 26, Anion Gap 11.1, BUN 27 H D, Creatinine 0.90 D, Estimated Creat Clear 65, Estimated GFR 61, Est GFR ( Amer) 74 D, Glucose 202 H, Calcium 8.3 L, C-Reactive Protein 344.8 H 05/09/21 13:27: Potassium 4.0, BUN 27 H, Creatinine 0.90, Est GFR ( Amer) 74, Glucose 207 H 05/09/21 15:39: Specimen Source Left radial, O2 % 60, Tru Test Acceptable, Vent Rate 20, Tidal Volume 440, PEEP 12 05/09/21 16:32: POC Glucose 223 H 05/09/21 22:27: POC Glucose 295 H 05/10/21 06:17: POC Glucose 248 H 05/10/21 07:13: Specimen Source R radial, O2 % 60, ABG pH 7.32 L, ABG pCO2 36.7, ABG pO2 107.5 H, ABG HCO3 18.3 L, ABG Total CO2 19.4 L, ABG O2 Saturation 97, ABG Base Excess -7.9 L, Tru Test Acceptable, Vent Rate 20, Tidal Volume 440, PEEP 12 05/10/21 08:25: WBC 4.9 D, RBC 2.91 L, Hgb 8.4 L, Hct 26.2 L, MCV 90.1, MCH 28.7, MCHC 31.9, RDW 16.1, Plt Count 289 D, MPV 8.7, Neut % (Auto) 83.5 H, Lymph % (Auto) 12.7, [place] % (Auto) 2.8, Eos % (Auto) 0.2, Baso % (Auto) 0.8, Neut # (Auto) 4.1, Lymph # (Auto) 0.6 L, [place] # (Auto) 0.1, Eos # (Auto) 0.0, Baso # (Auto) 0.0 05/10/21 08:25: Sodium 138, Potassium 3.9, Chloride 108 H, Carbon Dioxide 19 L, Anion Gap 14.9, BUN 49 H D, Creatinine 1.30 H D, Estimated Creat Clear 50, Estimated GFR 40 L, Est GFR ( Amer) 48 L D, Glucose 257 H D, Calcium 8.3 L 05/10/21 08:25: Triglycerides 144 05/10/21 11:29: POC Glucose 328 H* I & O for Last 24 hours: Intake & Output 05/08/21 05/09/21 05/10/21 05/11/21 11:59 11:59 11:59 11:59 Intake Total 660 / 660 0 / 0 2169 / 2169 Output Total 1820 / 1820 1725 / 1725 897 / 897 0 / 0 Balance -1160 / -1160 -1725 / -1725 1272 / 1272 0 / 0 Weight 177 lb 0.499 oz 182 lb 8 oz 183 lb 13.848 oz Microbiology Reports for the Last 24 Hours: Microbiology 05/09/21 14:10 Sputum - Endotracheal Tube Aspirate Gram Stain - Final - Constitutional no acute distress - *Routine HEENT Exam Head: Present: normocephalic Eye: Present: PERRL ENT: Present: mucous membranes moist - *Routine Neck Exam Present: supple. Absent: lymphadenopathy - *Routine Respiratory Exam Present: patient mechanically ventilated, crackles - *Routine Cardiovascular Exam Present: RRR - *Routine Abdominal Exam Present: soft, normoactive bowel sounds. Absent: tenderness - *Routine Extremities Exam Present: normal capillary refill. Absent: cyanosis, clubbing, edema - *Routine Skin Exam Present: warm. Absent: rash - *Routine Neurological Exam sedated Assessment and Plan (1) Diabetes 1.5, managed as type 2 Status: Acute Category: Medical Code(s): E13.9 - Other specified diabetes mellitus without complications (2) Obesity (BMI 30-39.9) Status: Acute Category: Medical Code(s): E66.9 - Obesity, unspecified (3) Pneumonia due to COVID-19 virus Status: Acute Category: Medical Code(s): U07.1 - COVID-19; J12.82 - Pneumonia due to coronavirus disease 2019 (4) Hypertension Status: Chronic Qualifiers: Hypertension type: unspecified Qualified Code(s): I10 - Essential (primary) hypertension Category: Medical Code(s): I10 - Essential (primary) hypertension - Assessment and plan all Dx Assessment and Plan for all problems:: rounded with dr ceballos all orders per dr ceballos continue care follow with pulm
[2021-05-10 21:07] LABS: POC Glucose,Bedside 263 (70-110)
--- NOTE | 2021-05-10 22:57 | PC.NURSE ---
She continues in contact and airborne precautions r/t COVID 19. GCS 6. She withdraws to pain. HOB elevated 30 degrees. Gag reflex present. She is being turned and repositioned q 2 hours. Oral care given. DSG in place on left shoulder. TEDS and heel protectors removed and heels elevated. Pupils 3 & PERRLA. No BM this shift. She has been started on Pulmocare tube feeding at 20mL/hr via OB. Glucose at HS was 263. Vent settings are as follows: AC mode, TV 440, PEEP 10, Rate 20, FiO2 50%. F/C patent with yellow, clear urine.
[2021-05-11] VITALS (29 sets, daily range): BP systolic 97–184; BP diastolic 41–75; PULSE 55–108; RESP 20–30; TEMP 36–37.1; O2SAT 90–99; BMI 30.7
[2021-05-11 01:20] LABS: POC Glucose,Bedside 278 (70-110)
--- NOTE | 2021-05-11 06:00 | XR_ITS ---
PROCEDURE INFORMATION: Exam: XR Chest Exam date and time: 05/11/2021 6:00 AM Age: 75 years old Clinical indication: Device placement; Ett placement (vent status); Patient HX: Covid +; Additional info: Follow up post intubation TECHNIQUE: Imaging protocol: XR of the chest. Views: 1 view. COMPARISON: CR XR CHEST PORTABLE 05/10/2021 4:15 AM FINDINGS: Tubes, catheters and devices: Endotracheal tube terminates approximately 2.7 cm above the rudy. NG tube passes into the stomach. Thoracic nerve stimulator is in place. Lungs: Similar bilateral interstitial and airspace opacities. Pleural spaces: Unremarkable. No pleural effusion. No pneumothorax. Heart/Mediastinum: Unremarkable. No cardiomegaly. Bones/joints: Bilateral reverse total shoulder arthroplasty changes. IMPRESSION: 1. No substantial interval change. Similar bilateral interstitial and airspace opacities. 2. Endotracheal tube terminates approximately 2.7 cm above the rudy.
[2021-05-11 08:10] LABS: Anion Gap 13.8 mEq/L (5-15); Basophils % 0.2 % (0.1-2.0); Blood Urea Nitrogen 71 mg/dl (7-17); Calcium 7.9 mg/dl (8.4-10.2); Carbon Dioxide 16 mmol/L (22.0-30.0); Chloride 111 mmol/L (98-107); Creatinine Clearance Estimated 43 mL/min (50-200); Eosinophils % 0.1 % (0.1-12.0); Estimated Glomerular Filt Rate 34 ml/min (>60); GFR (African American) 41 ML/MIN (>60); Glucose 332 mg/dl (74-100); Hematocrit 25.8 % (37.0-47.0); Hemoglobin 8.2 g/dL (12.2-16.2); Lymphocytes # 0.6 K/mm3 (0.7-4.5); Lymphocytes % 12.6 % (10-50); Mean Corpuscular HGB Conc 31.7 g/dL (31.8-35.4); Mean Corpuscular Hemoglobin 28.8 pg (27.0-31.2); Mean Corpuscular Volume 90.8 fl (81-99); Mean Platelet Volume 9.2 fl (7.4-10.4); Monocytes # 0.2 K/mm3 (0.1-1.0); Monocytes % 3.8 % (1.7-9.3); Neutrophils # 3.7 K/mm3 (1.8-7.8); Neutrophils % 83.4 % (37.0-80.0); Platelet Count 237 K/mm3 (142-424); Potassium 3.8 mmoL/L (3.5-5.1); Red Blood Count 2.84 M/mm3 (4.20-5.40); Red Cell Distribution Width 16.2 % (11.5-17.5); Sodium 137 mmol/L (136-145); White Blood Count 4.5 K/mm3 (4.8-10.8)
[2021-05-11 08:11] LABS: ABG Base Excess -9.8 mmol/L (-2.4-2.3); ABG HCO3 15.9 mmhg (22.0-26.0); ABG Oxygen Saturation 96 % (90-100); ABG PCO2 30.3 mmhg (35.0-45.0); ABG PH 7.34 mmol/L (7.35-7.45); ABG PO2 86.9 mmhg (80-100); ABG TCO2 16.9 mmhg (23-27)
[2021-05-11 08:12] LABS: Oxygen 50 %
[2021-05-11 08:13] LABS: Allen's Test Acceptable; PEEP 10; Source Right Radial; Tidal Volume 440; Vent Rate 20
[2021-05-11 08:15] LABS: C-Reactive Protein 147.3 mg/L (0-4)
--- NOTE | 2021-05-11 09:06 | HMH.PULMPN ---
Internal Medicine - PN: Subj *Date: 05/11/21 *Time: 11:53 Interval history: No acute respiratory events overnight. Patient respiratory status continued to improve. Exam - Constitutional Constitutional:: Present: no acute distress, comfortable - HENMT Exam HENMT: Present: normocephalic, atraumatic - Eye Exam Eyes:: Present: normal appearance both eyes and related structures - Neck Exam Neck:: Present: normal visual inspection - Respiratory Exam Respiratory:: Present: normal respiratory effort, crackles, rales - Cardiovascular Exam Cardiac:: Present: S1, S2 - GI Exam GI:: Present: soft, no hepatosplenomegaly - Skin Exam Skin: Present: warm, no rash - Neurological Exam Neurological: Absent: alert, awake, normal cognition - Extremities Exam Extremities: Present: no cyanosis, no clubbing, no edema Assessment and Plan (1) Diabetes 1.5, managed as type 2 Status: Acute Category: Medical Code(s): E13.9 - Other specified diabetes mellitus without complications (2) Obesity (BMI 30-39.9) Status: Acute Category: Medical Code(s): E66.9 - Obesity, unspecified (3) Pneumonia due to COVID-19 virus Status: Acute Category: Medical Code(s): U07.1 - COVID-19; J12.82 - Pneumonia due to coronavirus disease 2019 (4) Hypertension Status: Chronic Qualifiers: Hypertension type: unspecified Qualified Code(s): I10 - Essential (primary) hypertension Category: Medical Code(s): I10 - Essential (primary) hypertension - Assessment and plan all Dx Assessment and Plan for all problems:: #History of COVID-19 pneumonia: #Hospital-acquired pneumonia: Ms. Van is a 75-year-old female recently admitted to the hospital with worsening respiratory failure and COVID-19 needing intubation and mechanical ventilatory support, extubated and was discharged home on a 2 L nasal cannula along with continuation of levofloxacin to complete a 7-day course (received vancomycin and cefepime prior to this) presented to the hospital again with worsening respiratory distress pulmonary was called for further management. CTA performed on admission and did not show any notes of pulmonary embolism, bilateral worsening groundglass opacities and patchy airspace disease. Improved bilateral effusion. started on Ertapenem on admission changed to cefepime CRP significantly elevated to 192 from her recent admission at 8. Interval update: Patient respiratory status continued to improve post intubation. We will continue to wean FiO2 as tolerated and will perform SBT today. Renal function stable on repeat BMP.. Plan: -Intubated and sedated. Continue propofol and fentanyl. No need for deep sedation -Continue mechanical ventilatory support. No acute changes in blood gas from yesterday. Chest x-ray relatively stable. Wean sedation to perform SBT. Continue cefepime for hospital-acquired pneumonia along with methylprednisolone 125 every 12 hours. Blood and sputum cultures negative so far. Nasal MRSA PCR negative DuoNebs every 6 hours scheduled along budedsonide every 12 scheduled. -Abdomen soft nontender, COntinue tube feeds. -Increasing creatinine. Hemodynamically stable not on any pressors. We will continue to monitor. We will hold off on further diuresis. -Continue mechanical ventilatory support - Continue AnalgoSedation with Propofol and Fentanyl with CPOT gal less than or euqal to 2 and RASS goal of to 2 (No need for deep sedation) - VAP bundle Elevate head of the bed at 30 to 45 degrees Oral care with chlorhexidne GI ulcer prophylaxis - Famotidine 20mg IV BID Chemical DVT prophylaxis Thank you involving pulmonary in this patient. We will continue to follow.
[2021-05-11 11:05] LABS: POC Glucose,Bedside 365 (70-110)
--- NOTE | 2021-05-11 12:54 | HMH.ACPN2 ---
Internal Medicine - PN: Subj *Date: 05/11/21 *Time: 08:25 Interval history: intubated, on vent, sedated Exam Vital signs and Labs for Last 24 Hours: Temp Pulse Resp BP Pulse Ox 96.8 F L 60 25 H 120/57 L 97 05/11/21 11:21 05/11/21 11:27 05/11/21 11:27 05/11/21 09:00 05/11/21 11:27 Laboratory Results - last 24 hr 05/10/21 06:17: POC Glucose 248 H 05/10/21 11:29: POC Glucose 328 H* 05/10/21 16:55: POC Glucose 278 H 05/10/21 19:47: POC Glucose 263 H 05/11/21 05:21: POC Glucose 365 H* 05/11/21 07:22: WBC 4.5 L, RBC 2.84 L, Hgb 8.2 L, Hct 25.8 L, MCV 90.8, MCH 28.8, MCHC 31.7 L, RDW 16.2, Plt Count 237, MPV 9.2, Neut % (Auto) 83.4 H, Lymph % (Auto) 12.6, [place] % (Auto) 3.8, Eos % (Auto) 0.1, Baso % (Auto) 0.2, Neut # (Auto) 3.7, Lymph # (Auto) 0.6 L, [place] # (Auto) 0.2, Eos # (Auto) 0.0, Baso # (Auto) 0.0 05/11/21 07:22: Sodium 137, Potassium 3.8, Chloride 111 H, Carbon Dioxide 16 L, Anion Gap 13.8, BUN 71 H D, Creatinine 1.50 H, Estimated Creat Clear 43, Estimated GFR 34 L, Est GFR ( Amer) 41 L, Glucose 332 H D, Calcium 7.9 L 05/11/21 07:22: C-Reactive Protein 147.3 H 05/11/21 07:41: Specimen Source Right radial, O2 % 50, ABG pH 7.34 L, ABG pCO2 30.3 L, ABG pO2 86.9, ABG HCO3 15.9 L, ABG Total CO2 16.9 L, ABG O2 Saturation 96, ABG Base Excess -9.8 L, Tru Test Acceptable, Vent Rate 20, Tidal Volume 440, PEEP 10 I & O for Last 24 hours: Intake & Output 05/09/21 05/10/21 05/11/21 05/12/21 11:59 11:59 11:59 11:59 Intake Total 0 / 0 2435 / 2583 3490.292 / 3808.292 318 / 318 Output Total 1725 / 1725 917 / 1017 805 / 840 35 / 35 Balance -1725 / -1725 1518 / 1566 2685.292 / 2968.292 283 / 283 Weight 182 lb 8 oz 183 lb 13.848 oz 184 lb 4.903 oz Microbiology Reports for the Last 24 Hours: Microbiology 05/09/21 14:10 Sputum - Endotracheal Tube Aspirate Gram Stain - Final 05/09/21 14:10 Sputum - Endotracheal Tube Aspirate Sputum Culture - Preliminary 05/07/21 05:27 Nose - Nasal MRSA Culture - Final Negative - Constitutional no acute distress - *Routine HEENT Exam Head: Present: normocephalic Eye: Present: PERRL ENT: Present: mucous membranes moist - *Routine Neck Exam Present: supple. Absent: lymphadenopathy - *Routine Respiratory Exam Present: patient mechanically ventilated - *Routine Cardiovascular Exam Present: RRR - *Routine Abdominal Exam Present: soft, normoactive bowel sounds. Absent: tenderness - *Routine Extremities Exam Absent: cyanosis, clubbing, edema - *Routine Skin Exam Present: warm. Absent: rash - *Routine Neurological Exam sedated Assessment and Plan (1) Diabetes 1.5, managed as type 2 Status: Acute Category: Medical Code(s): E13.9 - Other specified diabetes mellitus without complications (2) Obesity (BMI 30-39.9) Status: Acute Category: Medical Code(s): E66.9 - Obesity, unspecified (3) Pneumonia due to COVID-19 virus Status: Acute Category: Medical Code(s): U07.1 - COVID-19; J12.82 - Pneumonia due to coronavirus disease 2019 (4) Hypertension Status: Chronic Qualifiers: Hypertension type: unspecified Qualified Code(s): I10 - Essential (primary) hypertension Category: Medical Code(s): I10 - Essential (primary) hypertension - Assessment and plan all Dx Assessment and Plan for all problems:: rounded with dr call all orders per dr vicente continue vent continue feedings pulm consult
--- NOTE | 2021-05-11 15:02 | DIET.NUTRFU ---
Patient is at goal rate and tolerating: Pulmocare at 60 mL/hr, will provide 2070 kcal, 86 g pro, and 1083 mL of free h2o plus 1020 via flush for total fluid 2103ml. Also receiving NaCl with multiple medications. BUN elevated at 71(49) and Cr at 1.5(1.3). Propofol also providing 369kcal. Glucose elevated at 332, steroid tx can cause it to elevate, insulin in place.
[2021-05-12] VITALS (31 sets, daily range): BP systolic 107–157; BP diastolic 40–64; PULSE 50–68; RESP 14–29; TEMP 36.4–36.8; O2SAT 91–100; BMI 31.9
[2021-05-12 00:32] LABS: POC Glucose,Bedside 372 (70-110)
--- NOTE | 2021-05-12 06:00 | XR_ITS ---
PROCEDURE INFORMATION: Exam: XR Chest Exam date and time: 05/12/2021 6:00 AM Age: 75 years old Clinical indication: Device placement; Ett placement (vent status); Patient HX: Daily intubation; Additional info: Follow up post intubation TECHNIQUE: Imaging protocol: XR of the chest. Views: 1 view. COMPARISON: CR XR CHEST PORTABLE 05/11/2021 4:57 AM FINDINGS: Tubes, catheters and devices: The ET tube is in good position. Lungs: Bibasilar airspace disease is increasing since the prior study. Pleural spaces: Unremarkable. No pleural effusion. No pneumothorax. Heart/Mediastinum: Unremarkable. No cardiomegaly. Bones/joints: Unremarkable. IMPRESSION: Increasing bibasilar infiltrates.
[2021-05-12 06:25] LABS: Basophils % 0.2 % (0.1-2.0); Eosinophils % 0.4 % (0.1-12.0); Hemoglobin 8.8 g/dL (12.2-16.2); Lymphocytes # 0.4 K/mm3 (0.7-4.5); Mean Corpuscular Hemoglobin 29.3 pg (27.0-31.2); Mean Corpuscular Volume 91.5 fl (81-99); Mean Platelet Volume 8.8 fl (7.4-10.4); Monocytes # 0.2 K/mm3 (0.1-1.0); Monocytes % 3.9 % (1.7-9.3); Neutrophils # 3.3 K/mm3 (1.8-7.8); Neutrophils % 84.6 % (37.0-80.0); Platelet Count 233 K/mm3 (142-424); Red Blood Count 2.99 M/mm3 (4.20-5.40); White Blood Count 3.9 K/mm3 (4.8-10.8)
[2021-05-12 06:26] LABS: Hematocrit 27.4 % (37.0-47.0)
[2021-05-12 06:36] LABS: Anion Gap 13.4 mEq/L (5-15); Calcium 7.8 mg/dl (8.4-10.2); Carbon Dioxide 16 mmol/L (22.0-30.0); Chloride 114 mmol/L (98-107); Creatinine Clearance Estimated 52 mL/min (50-200); Estimated Glomerular Filt Rate 40 ml/min (>60); GFR (African American) 48 ML/MIN (>60); Potassium 4.4 mmoL/L (3.5-5.1); Sodium 139 mmol/L (136-145); Triglycerides 367 mg/dl (30-150)
[2021-05-12 06:55] LABS: Blood Urea Nitrogen 83 mg/dl (7-17)
[2021-05-12 06:56] LABS: Glucose 403 mg/dl (74-100)
--- NOTE | 2021-05-12 07:00 | PC.NURSE ---
pt has had times of overbreathing and stacking breaths, current vent settings FiO2 50 TV 440 Resp 20 Peep 10 current gtt prop @ 50 fentanyl @ 50 NS @ 100 tube feed at 60
[2021-05-12 07:28] LABS: ABG Base Excess -10.7 mmol/L (-2.4-2.3); ABG HCO3 15.2 mmhg (22.0-26.0); ABG Oxygen Saturation 94 % (90-100); ABG PCO2 29.7 mmhg (35.0-45.0); ABG PH 7.33 mmol/L (7.35-7.45); ABG PO2 80.4 mmhg (80-100); ABG TCO2 16.1 mmhg (23-27)
[2021-05-12 07:29] LABS: Allen's Test Patient Unable; Oxygen 50 %; PEEP 10; Source Right Radial; Tidal Volume 440; Vent Rate 20
--- NOTE | 2021-05-12 09:43 | HMH.ACPN2 ---
Internal Medicine - PN: Subj *Date: 05/13/21 *Time: 07:27 Interval history: pt intubated and labs stable but cxr sl worse Exam Vital signs and Labs for Last 24 Hours: Temp Pulse Resp BP Pulse Ox 98.0 F 68 23 157/59 H 93 L 05/12/21 07:59 05/12/21 09:00 05/12/21 09:00 05/12/21 09:00 05/12/21 09:00 Laboratory Results - last 24 hr 05/11/21 05:21: POC Glucose 365 H* 05/11/21 11:36: POC Glucose 372 H* 05/12/21 06:00: Specimen Source Right radial, O2 % 50, ABG pH 7.33 L, ABG pCO2 29.7 L, ABG pO2 80.4, ABG HCO3 15.2 L, ABG Total CO2 16.1 L, ABG O2 Saturation 94, ABG Base Excess -10.7 L, Tru Test Patient unable, Vent Rate 20, Tidal Volume 440, PEEP 10 05/12/21 06:02: Sodium 139, Potassium 4.4, Chloride 114 H, Carbon Dioxide 16 L, Anion Gap 13.4, BUN 83 H, Creatinine 1.30 H, Estimated Creat Clear 52, Estimated GFR 40 L, Est GFR ( Amer) 48 L, Glucose 403 H* D, Calcium 7.8 L, Triglycerides 367 H 05/12/21 06:02: WBC 3.9 L, RBC 2.99 L, Hgb 8.8 L, Hct 27.4 L, MCV 91.5, MCH 29.3, MCHC 32.0, RDW 16.0, Plt Count 233, MPV 8.8, Neut % (Auto) 84.6 H, Lymph % (Auto) 11.0, [place] % (Auto) 3.9, Eos % (Auto) 0.4, Baso % (Auto) 0.2, Neut # (Auto) 3.3, Lymph # (Auto) 0.4 L, [place] # (Auto) 0.2, Eos # (Auto) 0.0, Baso # (Auto) 0.0 I & O for Last 24 hours: Intake & Output 05/09/21 05/10/21 05/11/21 05/12/21 11:59 11:59 11:59 11:59 Intake Total 0 / 0 2435 / 2583 3490.292 / 3808.292 3828.75 / 3828.75 Output Total 1725 / 1725 917 / 1017 805 / 840 1230 / 1230 Balance -1725 / -1725 1518 / 1566 2685.292 / 2968.292 2598.75 / 2598.75 Weight 182 lb 8 oz 183 lb 13.848 oz 184 lb 4.903 oz 191 lb 11.071 oz Microbiology Reports for the Last 24 Hours: Microbiology 05/06/21 18:55 Blood Blood Culture - Final NO GROWTH AFTER 5 DAYS 05/06/21 18:55 Blood Blood Culture - Final NO GROWTH AFTER 5 DAYS 05/09/21 14:10 Sputum - Endotracheal Tube Aspirate Gram Stain - Final 05/09/21 14:10 Sputum - Endotracheal Tube Aspirate Sputum Culture - Preliminary 05/07/21 05:27 Nose - Nasal MRSA Culture - Final Negative - Constitutional obese Comments: sedated - *Routine HEENT Exam Head: Present: other (intubated ) Eye: Present: PERRL ENT: Present: other (intubated) - *Routine Neck Exam Absent: JVD - *Routine Respiratory Exam Present: patient mechanically ventilated - *Routine Cardiovascular Exam Present: RRR - *Routine Abdominal Exam Present: soft - *Routine Extremities Exam Present: edema - *Routine Skin Exam Present: intact - *Routine Neurological Exam Present: alert, CN II-XII intact - Routine Psychiatric Exam Present: unable to assess Assessment and Plan (1) Diabetes 1.5, managed as type 2 Status: Acute Category: Medical Code(s): E13.9 - Other specified diabetes mellitus without complications (2) Obesity (BMI 30-39.9) Status: Acute Category: Medical Code(s): E66.9 - Obesity, unspecified (3) Pneumonia due to COVID-19 virus Status: Acute Category: Medical Code(s): U07.1 - COVID-19; J12.82 - Pneumonia due to coronavirus disease 2019 (4) Hypertension Status: Chronic Qualifiers: Hypertension type: unspecified Qualified Code(s): I10 - Essential (primary) hypertension Category: Medical Code(s): I10 - Essential (primary) hypertension (5) Respiratory failure with hypoxia Status: Acute Qualifiers: Chronicity: acute on chronic Qualified Code(s): J96.21 - Acute and chronic respiratory failure with hypoxia Category: Medical Code(s): J96.91 - Respiratory failure, unspecified with hypoxia
[2021-05-12 16:34] LABS: POC Glucose,Bedside 405 (70-110)
[2021-05-12 16:34] LABS: POC Glucose,Bedside 453 (70-110)
[2021-05-12 21:32] LABS: POC Glucose,Bedside 340 (70-110)
[2021-05-12 21:32] LABS: POC Glucose,Bedside 426 (70-110)
[2021-05-12 22:33] LABS: POC Glucose,Bedside 317 (70-110)
[2021-05-13] VITALS (34 sets, daily range): BP systolic 113–189; BP diastolic 41–67; PULSE 50–69; RESP 14–34; TEMP 36.5–36.8; O2SAT 92–100; BMI 33.5
--- NOTE | 2021-05-13 00:01 | PC.NURSE ---
pt's vent alarm going off, upon entering room pt attempting to pull OETT, placed mitten on right hand (left arm in sling unable to get hand up to tube), tube still in correct position, increased sedation for agitation (propofol to 60mcg/kg/min and fentanyl to 75mcg/hr), notified RT Nancy of vent alarms, RT's to bedside to adjust settings, will continue to monitor
--- NOTE | 2021-05-13 06:00 | XR_ITS ---
PROCEDURE INFORMATION: Exam: XR Chest Exam date and time: 05/13/2021 6:00 AM Age: 75 years old Clinical indication: Device placement; Ett placement (vent status); Additional info: Follow up post intubation TECHNIQUE: Imaging protocol: XR of the chest. Views: 1 view. COMPARISON: CR XR CHEST PORTABLE 05/12/2021 5:46 AM FINDINGS: Tubes, catheters and devices: Epidural catheter. Nasogastric tube extends beyond inferior margin of film bowel left upper quadrant. Endotracheal tube unchanged in position. Lungs: Increased mid and lower lung airspace opacities. Pleural spaces: No pneumothorax. Heart/Mediastinum: Cardiac silhouette stable. Vasculature: Aortic arch calcification. Bones/joints: Bilateral shoulder arthroplasties. IMPRESSION: Bilateral mid and lower lung airspace opacities are progressive.
[2021-05-13 06:10] LABS: Lymphocytes # 0.4 K/mm3 (0.7-4.5); Mean Corpuscular HGB Conc 31.3 g/dL (31.8-35.4); Monocytes # 0.2 K/mm3 (0.1-1.0); Monocytes % 3.3 % (1.7-9.3); White Blood Count 4.8 K/mm3 (4.8-10.8)
[2021-05-13 06:18] LABS: POC Glucose,Bedside 420 (70-110)
[2021-05-13 06:20] LABS: Basophils % 0.2 % (0.1-2.0); Lymphocytes % 8.6 % (10-50); Mean Corpuscular Hemoglobin 28.9 pg (27.0-31.2); Mean Corpuscular Volume 92.3 fl (81-99); Mean Platelet Volume 8.9 fl (7.4-10.4); Neutrophils # 4.2 K/mm3 (1.8-7.8); Neutrophils % 87.8 % (37.0-80.0); Platelet Count 200 K/mm3 (142-424); Red Blood Count 2.73 M/mm3 (4.20-5.40); Red Cell Distribution Width 16.2 % (11.5-17.5)
[2021-05-13 06:22] LABS: Hematocrit 25.2 % (37.0-47.0); Hemoglobin 7.9 g/dL (12.2-16.2)
[2021-05-13 06:24] LABS: MANUAL DIFFERENTIAL MANUAL DIFFERENTIAL (MANUAL DIFF)
[2021-05-13 06:29] LABS: Anisocytosis 1+; Hypochromasia 1+; Lymphocytes % 6 % (10-50); Monocytes % 2 % (2-9); Neutrophils % 83 % (42-76); Platelet Estimate Normal; Rouleaux 1+; Total Cells Counted 100
[2021-05-13 06:31] LABS: Anion Gap 11.8 mEq/L (5-15); Calcium 7.9 mg/dl (8.4-10.2); Carbon Dioxide 14 mmol/L (22.0-30.0); Chloride 116 mmol/L (98-107); Creatinine Clearance Estimated 51 mL/min (50-200); Estimated Glomerular Filt Rate 37 ml/min (>60); GFR (African American) 44 ML/MIN (>60); Glucose 356 mg/dl (74-100); Potassium 4.8 mmoL/L (3.5-5.1); Sodium 137 mmol/L (136-145)
[2021-05-13 06:35] LABS: Blood Urea Nitrogen 88 mg/dl (7-17)
--- NOTE | 2021-05-13 06:43 | PC.NURSE ---
notified MD Agosto surgical product sales consultant of pt's critical lab result, BUN 88 up from 83 yesterday, no new orders at this time
[2021-05-13 07:12] LABS: ABG Base Excess -12.2 mmol/L (-2.4-2.3); ABG HCO3 14.7 mmhg (22.0-26.0); ABG Oxygen Saturation 92 % (90-100); ABG PCO2 32.5 mmhg (35.0-45.0); ABG PH 7.27 mmol/L (7.35-7.45); ABG PO2 69.7 mmhg (80-100); ABG TCO2 15.7 mmhg (23-27)
[2021-05-13 07:17] LABS: Oxygen 50 %; PEEP 10; Tidal Volume 440; Vent Rate 20
[2021-05-13 07:18] LABS: Allen's Test Patient Unable; Source Right Radial
[2021-05-13 07:23] LABS: Lactate Arterial 1.7 mmol/L (0.4-2.0)
--- NOTE | 2021-05-13 09:24 | HMH.ACPN2 ---
Internal Medicine - PN: Subj *Date: 05/14/21 *Time: 02:40 Interval history: cxr appears about same to me but read as progressive but pt doing ok with [facility] [place] vent Exam Vital signs and Labs for Last 24 Hours: Temp Pulse Resp BP Pulse Ox 98.2 F 60 24 127/54 L 94 L 05/13/21 08:22 05/13/21 08:00 05/13/21 08:00 05/13/21 08:00 05/13/21 07:00 Laboratory Results - last 24 hr 05/11/21 17:46: POC Glucose 453 H* 05/11/21 21:18: POC Glucose 405 H* 05/12/21 11:43: POC Glucose 426 H* 05/12/21 16:26: POC Glucose 340 H* 05/12/21 22:15: POC Glucose 317 H* 05/13/21 05:16: WBC 4.8, RBC 2.73 L, Hgb 7.9 L D, Hct 25.2 L, MCV 92.3, MCH 28.9, MCHC 31.3 L, RDW 16.2, Plt Count 200, MPV 8.9, Neut % (Auto) 87.8 H, Lymph % (Auto) 8.6 L, [place] % (Auto) 3.3, Eos % (Auto) 0.0 L, Baso % (Auto) 0.2, Neut # (Auto) 4.2, Lymph # (Auto) 0.4 L, [place] # (Auto) 0.2, Eos # (Auto) 0.0, Baso # (Auto) 0.0, Total Counted 100, Neutrophils % (Manual) 83 H, Band Neutrophils % 9.0 H, Lymphocytes % (Manual) 6 L, Monocytes % (Manual) 2, Platelet Estimate Normal, Hypochromasia 1+, Anisocytosis 1+, Rouleaux 1+ 05/13/21 05:16: Sodium 137, Potassium 4.8, Chloride 116 H, Carbon Dioxide 14 L, Anion Gap 11.8, BUN 88 H, Creatinine 1.40 H, Estimated Creat Clear 51, Estimated GFR 37 L, Est GFR ( Amer) 44 L, Glucose 356 H, Calcium 7.9 L 05/13/21 05:47: POC Glucose 420 H* 05/13/21 06:00: ABG Lactate 1.7 05/13/21 07:08: Specimen Source Right radial, O2 % 50, ABG pH 7.27 L, ABG pCO2 32.5 L, ABG pO2 69.7 L, ABG HCO3 14.7 L, ABG Total CO2 15.7 L, ABG O2 Saturation 92, ABG Base Excess -12.2 L, Tru Test Patient unable, Vent Rate 20, Tidal Volume 440, PEEP 10 I & O for Last 24 hours: Intake & Output 05/10/21 05/11/21 05/12/21 05/13/21 11:59 11:59 11:59 11:59 Intake Total 2435 / 2583 3490.292 / 3808.292 3881.00 / 3881.00 5130.417 / 5130.417 Output Total 917 / 1017 805 / 840 1307 / 1347 635 / 635 Balance 1518 / 1566 2685.292 / 2968.292 2574.00 / 2534.00 4495.417 / 4495.417 Weight 183 lb 13.848 oz 184 lb 4.903 oz 191 lb 11.071 oz 201 lb 8.04 oz - Constitutional no acute distress - *Routine HEENT Exam Head: Present: normocephalic Eye: Present: EOMI, PERRL ENT: Present: mucous membranes dry - *Routine Neck Exam Absent: JVD - *Routine Respiratory Exam Present: patient mechanically ventilated - *Routine Cardiovascular Exam Present: RRR - *Routine Abdominal Exam Present: soft - *Routine Extremities Exam Present: edema - *Routine Skin Exam Present: intact - *Routine Neurological Exam no posturing - Routine Psychiatric Exam Present: unable to assess Assessment and Plan (1) Diabetes 1.5, managed as type 2 Status: Acute Category: Medical Code(s): E13.9 - Other specified diabetes mellitus without complications (2) Obesity (BMI 30-39.9) Status: Acute Category: Medical Code(s): E66.9 - Obesity, unspecified (3) Pneumonia due to COVID-19 virus Status: Acute Category: Medical Code(s): U07.1 - COVID-19; J12.82 - Pneumonia due to coronavirus disease 2019 (4) Hypertension Status: Chronic Qualifiers: Hypertension type: unspecified Qualified Code(s): I10 - Essential (primary) hypertension Category: Medical Code(s): I10 - Essential (primary) hypertension (5) Respiratory failure with hypoxia Status: Acute Qualifiers: Chronicity: acute on chronic Qualified Code(s): J96.21 - Acute and chronic respiratory failure with hypoxia Category: Medical Code(s): J96.91 - Respiratory failure, unspecified with hypoxia
[2021-05-13 13:13] LABS: POC Glucose,Bedside 357 (70-110)
[2021-05-13 16:26] LABS: POC Glucose,Bedside 278 (70-110)
[2021-05-13 21:40] LABS: POC Glucose,Bedside 261 (70-110)
[2021-05-14] VITALS (39 sets, daily range): BP systolic 127–181; BP diastolic 39–71; PULSE 56–97; RESP 18–26; TEMP 36.6–37; O2SAT 89–100; BMI 33.5
--- NOTE | 2021-05-14 01:59 | PC.NURSE ---
pt's vent alraming, oxygen saturations were 91%, pt coughing and belly breathing; suctioned pt and got small amount of frothy pink tinged secretions through OETT, orally suctioned pt and got moderate amount of frothy cream secretions, placed pt on back, sat pt up at 55 degrees and placed pt in mild form of reverse trendelenberg, pt's oxygen saturations back up to 95%, vent stopped alarming, and belly breathing subsided; notified RT Augustine of all of this as well
--- NOTE | 2021-05-14 06:00 | XR_ITS ---
PROCEDURE INFORMATION: Exam: XR Chest Exam date and time: 05/14/2021 6:00 AM Age: 75 years old Clinical indication: Device placement; Ett placement (vent status); Additional info: Follow up post intubation TECHNIQUE: Imaging protocol: XR of the chest. Views: 1 view. COMPARISON: CR XR CHEST PORTABLE 05/13/2021 5:46 AM FINDINGS: Limitations: Radiographic technique - mild. Rotation - mild. Tubes, catheters and devices: Endotracheal tube, tip located approximately 3 cm from rudy. NG tube courses below diaphragm. Spinal stimulator leads. Lungs: Patchy bibasilar opacities, similar to slightly increased from previous examination. Pleural spaces: Small bilateral pleural effusions. No pneumothorax. Heart/Mediastinum: Mild cardiomegaly. Bones/joints: Bilateral shoulder arthroplasties Soft tissues: Unremarkable. IMPRESSION: Endotracheal tube, tip located approximately 3 cm from rudy.
[2021-05-14 06:18] LABS: POC Glucose,Bedside 458 (70-110)
[2021-05-14 06:22] LABS: Basophils % 0.1 % (0.1-2.0); Eosinophils % 0.1 % (0.1-12.0); Hemoglobin 9.1 g/dL (12.2-16.2); Lymphocytes # 0.5 K/mm3 (0.7-4.5); Lymphocytes % 5.1 % (10-50); Mean Corpuscular HGB Conc 32.3 g/dL (31.8-35.4); Mean Corpuscular Hemoglobin 29.1 pg (27.0-31.2); Mean Corpuscular Volume 90.2 fl (81-99); Mean Platelet Volume 8.5 fl (7.4-10.4); Monocytes # 0.2 K/mm3 (0.1-1.0); Monocytes % 2.5 % (1.7-9.3); Neutrophils # 8.5 K/mm3 (1.8-7.8); Neutrophils % 92.1 % (37.0-80.0); Platelet Count 223 K/mm3 (142-424); Red Blood Count 3.11 M/mm3 (4.20-5.40); White Blood Count 9.2 K/mm3 (4.8-10.8)
--- NOTE | 2021-05-14 06:25 | PC.NURSE ---
notified MD Agosto solution lead of pt's fsbs 458, stated to give 26 units lispro, will do so and continue to monitor
[2021-05-14 06:26] LABS: MANUAL DIFFERENTIAL MANUAL DIFFERENTIAL (MANUAL DIFF)
[2021-05-14 06:39] LABS: Anion Gap 16.3 mEq/L (5-15); Calcium 8.1 mg/dl (8.4-10.2); Carbon Dioxide 11 mmol/L (22.0-30.0); Chloride 116 mmol/L (98-107); Creatinine Clearance Estimated 51 mL/min (50-200); Estimated Glomerular Filt Rate 37 ml/min (>60); GFR (African American) 44 ML/MIN (>60); Glucose 389 mg/dl (74-100); Potassium 5.3 mmoL/L (3.5-5.1); Sodium 138 mmol/L (136-145)
[2021-05-14 07:45] LABS: Blood Urea Nitrogen 92 mg/dl (7-17)
[2021-05-14 08:04] LABS: ABG Base Excess -16.5 mmol/L (-2.4-2.3); ABG HCO3 12.1 mmhg (22.0-26.0); ABG Oxygen Saturation 87 % (90-100); ABG PCO2 33.8 mmhg (35.0-45.0); ABG PO2 58.9 mmhg (80-100); ABG TCO2 13.1 mmhg (23-27)
[2021-05-14 08:09] LABS: Allen's Test ACCEPTABLE; Oxygen 50 %; PEEP 10; Source Right Radial; Tidal Volume 440; Vent Rate 20
[2021-05-14 08:10] LABS: ABG PH 7.17 mmol/L (7.35-7.45)
[2021-05-14 08:11] LABS: Lactate Arterial 1.1 mmol/L (0.4-2.0)
[2021-05-14 08:15] LABS: Lymphocytes % 6 % (10-50); Monocytes % 5 % (2-9); Neutrophils % 89 % (42-76); Platelet Estimate Normal; RBC Morphology Normal; Total Cells Counted 100
[2021-05-14 08:53] LABS: Lipase 104 U/L (23-300)
[2021-05-14 08:54] LABS: Triglycerides 336 mg/dl (30-150)
--- NOTE | 2021-05-14 09:08 | P.PN_ITS ---
Internal Medicine - PN: Subj *Date: 05/14/21 *Time: 09:08 Exam Vital signs and Labs for Last 24 Hours: Temp Pulse Resp BP Pulse Ox 98.1 F 72 23 175/64 H 90 L 05/14/21 01:00 05/14/21 07:00 05/14/21 07:00 05/14/21 07:00 05/14/21 07:00 Laboratory Results - last 24 hr 05/13/21 11:15: POC Glucose 357 H* 05/13/21 16:16: POC Glucose 278 H 05/13/21 20:35: POC Glucose 261 H 05/14/21 05:39: WBC 9.2 D, RBC 3.11 L, Hgb 9.1 L, Hct 28.0 L, MCV 90.2, MCH 29.1, MCHC 32.3, RDW 16.0, Plt Count 223, MPV 8.5, Neut % (Auto) 92.1 H, Lymph % (Auto) 5.1 L, [place] % (Auto) 2.5, Eos % (Auto) 0.1, Baso % (Auto) 0.1, Neut # (Auto) 8.5 H, Lymph # (Auto) 0.5 L, [place] # (Auto) 0.2, Eos # (Auto) 0.0, Baso # (Auto) 0.0, Total Counted 100, Neutrophils % (Manual) 89 H, Lymphocytes % (Manual) 6 L, Monocytes % (Manual) 5, Platelet Estimate Normal, RBC Morphology Normal 05/14/21 05:39: Sodium 138, Potassium 5.3 H, Chloride 116 H, Carbon Dioxide 11 L , Anion Gap 16.3 H, BUN 92 H, Creatinine 1.40 H, Estimated Creat Clear 51, Estimated GFR 37 L, Est GFR ( Amer) 44 L, Glucose 389 H, Calcium 8.1 L 05/14/21 05:39: Triglycerides 336 H, Lipase 104 05/14/21 06:00: Specimen Source Right radial, O2 % 50, ABG pH 7.17 L*, ABG pCO2 33.8 L, ABG pO2 58.9 L, ABG HCO3 12.1 L, ABG Total CO2 13.1 L, ABG O2 Saturation 87 L*, ABG Base Excess -16.5 L, Tru Test Acceptable, Vent Rate 20, Tidal Volume 440, PEEP 10 05/14/21 06:11: POC Glucose 458 H* 05/14/21 08:01: ABG Lactate 1.1 I & O for Last 24 hours: Intake & Output 05/11/21 05/12/21 05/13/21 05/14/21 23:59 23:59 23:59 23:59 Intake Total 4522.75 / 4652.75 5902.25 / 6325.25 5034.417 / 5034.417 1372.25 / 1372.25 Output Total 1265 / 1290 787 / 872 940 / 940 310 / 310 Balance 3257.75 / 3362.75 5115.25 / 5453.25 4094.417 / 4094.417 1062.25 / 1062.25 Weight 83.6 kg 86.95 kg 91.4 kg 91.4 kg Microbiology Reports for the Last 24 Hours: Microbiology 05/09/21 14:10 Sputum - Endotracheal Tube Aspirate Gram Stain - Final 05/09/21 14:10 Sputum - Endotracheal Tube Aspirate Sputum Culture - Final Normal Respiratory [place] Assessment and Plan (1) Diabetes 1.5, managed as type 2 Status: Acute Category: Medical Code(s): E13.9 - Other specified diabetes mellitus without complications (2) Obesity (BMI 30-39.9) Status: Acute Category: Medical Code(s): E66.9 - Obesity, unspecified (3) Pneumonia due to COVID-19 virus Status: Acute Category: Medical Code(s): U07.1 - COVID-19; J12.82 - Pneumonia due to coronavirus disease 2019 (4) Hypertension Status: Chronic Qualifiers: Hypertension type: unspecified Qualified Code(s): I10 - Essential (primary) hypertension Category: Medical Code(s): I10 - Essential (primary) hypertension (5) Respiratory failure with hypoxia Status: Acute Qualifiers: Chronicity: acute on chronic Qualified Code(s): J96.21 - Acute and chronic respiratory failure with hypoxia Category: Medical Code(s): J96.91 - Respiratory failure, unspecified with hypoxia The patient's infection will respond to the chosen ABx?: Yes Is the patient receiving the right drug, dose, and route?: Yes Could a more targeted ABx be ordered?: No
--- NOTE | 2021-05-14 09:12 | PC.NURSE ---
[address] church notified him of pt BUN/Crea. new orders from in regards to ABG start insulin drip for hyperglycemia (start at 1unit/hr) give 1 amp of sodium bicarb via IV push order labs: serum acetone, triglycerides, lipase.
[2021-05-14 09:17] LABS: Acetone, Serum (Rapid) None Detected (None Detect)
--- NOTE | 2021-05-14 09:31 | HMH.ACPN2 ---
Internal Medicine - PN: Subj *Date: 05/14/21 *Time: 09:10 Interval history: pt on vent,romero at bedside, tube feedings, edema to ext,eyes Exam Vital signs and Labs for Last 24 Hours: Temp Pulse Resp BP Pulse Ox 98.1 F 72 23 175/64 H 90 L 05/14/21 01:00 05/14/21 07:00 05/14/21 07:00 05/14/21 07:00 05/14/21 07:00 Laboratory Results - last 24 hr 05/13/21 11:15: POC Glucose 357 H* 05/13/21 16:16: POC Glucose 278 H 05/13/21 20:35: POC Glucose 261 H 05/14/21 05:39: WBC 9.2 D, RBC 3.11 L, Hgb 9.1 L, Hct 28.0 L, MCV 90.2, MCH 29.1, MCHC 32.3, RDW 16.0, Plt Count 223, MPV 8.5, Neut % (Auto) 92.1 H, Lymph % (Auto) 5.1 L, [place] % (Auto) 2.5, Eos % (Auto) 0.1, Baso % (Auto) 0.1, Neut # (Auto) 8.5 H, Lymph # (Auto) 0.5 L, [place] # (Auto) 0.2, Eos # (Auto) 0.0, Baso # (Auto) 0.0, Total Counted 100, Neutrophils % (Manual) 89 H, Lymphocytes % (Manual) 6 L, Monocytes % (Manual) 5, Platelet Estimate Normal, RBC Morphology Normal 05/14/21 05:39: Sodium 138, Potassium 5.3 H, Chloride 116 H, Carbon Dioxide 11 L, Anion Gap 16.3 H, BUN 92 H, Creatinine 1.40 H, Estimated Creat Clear 51, Estimated GFR 37 L, Est GFR ( Amer) 44 L, Glucose 389 H, Calcium 8.1 L 05/14/21 05:39: Triglycerides 336 H, Lipase 104, Acetone Level None detected 05/14/21 06:00: Specimen Source Right radial, O2 % 50, ABG pH 7.17 L*, ABG pCO2 33.8 L, ABG pO2 58.9 L, ABG HCO3 12.1 L, ABG Total CO2 13.1 L, ABG O2 Saturation 87 L*, ABG Base Excess -16.5 L, Tru Test Acceptable, Vent Rate 20, Tidal Volume 440, PEEP 10 05/14/21 06:11: POC Glucose 458 H* 05/14/21 08:01: ABG Lactate 1.1 I & O for Last 24 hours: Intake & Output 05/11/21 05/12/21 05/13/21 05/14/21 11:59 11:59 11:59 11:59 Intake Total 3490.292 / 3808.292 3881.00 / 3881.00 5310.417 / 5310.417 4934.25 / 4934.25 Output Total 805 / 840 1307 / 1347 745 / 800 835 / 835 Balance 2685.292 / 2968.292 2574.00 / 2534.00 4565.417 / 4510.417 4099.25 / 4099.25 Weight 184 lb 4.903 oz 191 lb 11.071 oz 201 lb 8.04 oz 201 lb 8.04 oz Microbiology Reports for the Last 24 Hours: Microbiology 05/09/21 14:10 Sputum - Endotracheal Tube Aspirate Gram Stain - Final 05/09/21 14:10 Sputum - Endotracheal Tube Aspirate Sputum Culture - Final Normal Respiratory Clara - Constitutional no acute distress - *Routine HEENT Exam Head: Present: normocephalic Eye: Present: PERRL, other ENT: Present: mucous membranes moist - *Routine Neck Exam Present: supple. Absent: lymphadenopathy - *Routine Respiratory Exam Present: patient mechanically ventilated - *Routine Cardiovascular Exam Present: RRR - *Routine Abdominal Exam Present: soft, normoactive bowel sounds. Absent: tenderness - *Routine Extremities Exam Present: edema. Absent: cyanosis, clubbing - *Routine Skin Exam Present: warm. Absent: rash - *Routine Neurological Exam sedated Assessment and Plan (1) Diabetes 1.5, managed as type 2 Status: Acute Category: Medical Code(s): E13.9 - Other specified diabetes mellitus without complications (2) Obesity (BMI 30-39.9) Status: Acute Category: Medical Code(s): E66.9 - Obesity, unspecified (3) Pneumonia due to COVID-19 virus Status: Acute Category: Medical Code(s): U07.1 - COVID-19; J12.82 - Pneumonia due to coronavirus disease 2019 (4) Hypertension Status: Chronic Qualifiers: Hypertension type: unspecified Qualified Code(s): I10 - Essential (primary) hypertension Category: Medical Code(s): I10 - Essential (primary) hypertension (5) Respiratory failure with hypoxia Status: Acute Qualifiers: Chronicity: acute on chronic Qualified Code(s): J96.21 - Acute and chronic respiratory failure with hypoxia Category: Medical Code(s): J96.91 - Respiratory failure, unspecified with hypoxia - Assessment and plan all Dx Assessment and Plan for all problems:: rounded with dr vicente all orders per dr vicente follow with pu
--- NOTE | 2021-05-14 09:36 | HMH.PULMPN ---
Internal Medicine - PN: Subj *Date: 05/14/21 *Time: 13:13 Interval history: No acute respiratory events over the weekend. Exam - Constitutional Constitutional:: Present: no acute distress, comfortable - Eye Exam Eyes:: Present: normal appearance both eyes and related structures - Neck Exam Neck:: Present: normal visual inspection - Respiratory Exam Respiratory:: Present: no respiratory distress, respiratory distress. Absent: wheezing - Cardiovascular Exam Cardiac:: Present: S1, S2 - GI Exam GI:: Present: soft - Skin Exam Skin: Present: warm, no rash - Neurological Exam Neurological: Absent: alert, awake, normal cognition - Extremities Exam Extremities: Present: no cyanosis, no clubbing, no edema Assessment and Plan (1) Diabetes 1.5, managed as type 2 Status: Acute Category: Medical Code(s): E13.9 - Other specified diabetes mellitus without complications (2) Obesity (BMI 30-39.9) Status: Acute Category: Medical Code(s): E66.9 - Obesity, unspecified (3) Pneumonia due to COVID-19 virus Status: Acute Category: Medical Code(s): U07.1 - COVID-19; J12.82 - Pneumonia due to coronavirus disease 2019 (4) Hypertension Status: Chronic Qualifiers: Hypertension type: unspecified Qualified Code(s): I10 - Essential (primary) hypertension Category: Medical Code(s): I10 - Essential (primary) hypertension (5) Respiratory failure with hypoxia Status: Acute Qualifiers: Chronicity: acute on chronic Qualified Code(s): J96.21 - Acute and chronic respiratory failure with hypoxia Category: Medical Code(s): J96.91 - Respiratory failure, unspecified with hypoxia - Assessment and plan all Dx Assessment and Plan for all problems:: #History of COVID-19 pneumonia: #Hospital-acquired pneumonia: Ms. Van is a 75-year-old female recently admitted to the hospital with worsening respiratory failure and COVID-19 needing intubation and mechanical ventilatory support, extubated and was discharged home on a 2 L nasal cannula along with continuation of levofloxacin to complete a 7-day course (received vancomycin and cefepime prior to this) presented to the hospital again with worsening respiratory distress pulmonary was called for further management. CTA performed on admission and did not show any notes of pulmonary embolism, bilateral worsening groundglass opacities and patchy airspace disease. Improved bilateral effusion. started on Ertapenem on admission changed to cefepime CRP significantly elevated to 192 from her recent admission at 8. Interval update: Patient respiratory is remained relatively stable. Worsening renal function and metabolic acidosis.. Plan: -Intubated and sedated. Continue propofol and fentanyl. No need for deep sedation -Continue mechanical ventilatory support. Continue to remain on 10 of PEEP and 50% FiO2. ABG from this morning showed significant metabolic acidosis, pH of 7.17, PCO2 33.8 and PO2 of 58.9. Chest x-ray relatively unchanged. Continue cefepime for hospital-acquired pneumonia along with methylprednisolone 125 every 12 hours. Blood and sputum cultures negative so far. Nasal MRSA PCR negative DuoNebs every 6 hours scheduled along budedsonide every 12 scheduled. -Afebrile. Leukocytosis improving. -Abdomen soft nontender. Hold tube feeds -Creatinine stable, however BUN progressively worsening, 20 on admission to 92 today. Closely monitor urine output. Concern for worsening renal function. No evidence of lactic acidosis. Noted to have anion gap metabolic acidosis & hyperglycemia concerning for DKA. Will initiate patient on insulin drip. Hold Tube feeds. Hyperkalemia noted. We will continue to monitor. -Continue mechanical ventilatory support - Continue AnalgoSedation with Propofol and Fentanyl with CPOT gal less than or euqal to 2 and RASS goal of to 2 (No need for deep sedation) - VAP bundle Elevate head of the bed at 30 to 45 degrees
[2021-05-14 11:29] LABS: POC Glucose,Bedside 402 (70-110)
--- NOTE | 2021-05-14 15:30 | PC.WOUNDNOTE ---
assessment of coccyx
[2021-05-14 17:00] LABS: POC Glucose,Bedside 375 (70-110)
[2021-05-14 19:14] LABS: POC Glucose,Bedside 343 (70-110)
[2021-05-14 20:37] LABS: POC Glucose,Bedside 287 (70-110)
[2021-05-15] VITALS (30 sets, daily range): BP systolic 113–165; BP diastolic 41–78; PULSE 49–71; RESP 11–28; TEMP 36.1–36.5; O2SAT 91–100; BMI 37.4
[2021-05-15 07:19] LABS: Chloride 118 mmol/L (98-107); Potassium 4.9 mmoL/L (3.5-5.1); Sodium 138 mmol/L (136-145)
[2021-05-15 07:20] LABS: ABG Base Excess -16.4 mmol/L (-2.4-2.3); ABG HCO3 12.3 mmhg (22.0-26.0); ABG Oxygen Saturation 96 % (90-100); ABG PCO2 35.4 mmhg (35.0-45.0); ABG PO2 92.8 mmhg (80-100); ABG TCO2 13.4 mmhg (23-27); Lactate Arterial 0.9 mmol/L (0.4-2.0)
[2021-05-15 07:22] LABS: Anion Gap 12.9 mEq/L (5-15); Calcium 7.9 mg/dl (8.4-10.2); Carbon Dioxide 12 mmol/L (22.0-30.0); Creatinine Clearance Estimated 44 mL/min (50-200); Estimated Glomerular Filt Rate 28 ml/min (>60); GFR (African American) 33 ML/MIN (>60); Glucose 117 mg/dl (74-100)
[2021-05-15 07:24] LABS: Allen's Test Patient Unable; Oxygen 50% %; PEEP 10; Source Right Radial; Tidal Volume 440; Vent Rate 22
[2021-05-15 07:25] LABS: ABG PH 7.16 mmol/L (7.35-7.45)
[2021-05-15 07:34] LABS: Blood Urea Nitrogen 104 mg/dl (7-17)
[2021-05-15 07:45] LABS: POC Glucose,Bedside 175 (70-110)
[2021-05-15 07:45] LABS: POC Glucose,Bedside 241 (70-110)
[2021-05-15 07:45] LABS: POC Glucose,Bedside 133 (70-110)
[2021-05-15 07:45] LABS: POC Glucose,Bedside 204 (70-110)
[2021-05-15 07:45] LABS: POC Glucose,Bedside 150 (70-110)
--- NOTE | 2021-05-15 08:41 | HMH.PULMPN ---
Internal Medicine - PN: Subj *Date: 05/15/21 *Time: 11:20 Interval history: No acute respiratory events overnight. Exam - Constitutional Constitutional:: Present: no acute distress, comfortable - HENMT Exam HENMT: Present: normocephalic, atraumatic - Eye Exam Eyes:: Present: normal appearance both eyes and related structures - Neck Exam Neck:: Present: normal visual inspection - Respiratory Exam Respiratory:: Present: no respiratory distress, rales. Absent: wheezing - Cardiovascular Exam Cardiac:: Present: S1, S2 - GI Exam GI:: Present: soft - Skin Exam Skin: Present: warm, no rash - Neurological Exam Neurological: Absent: alert, awake, normal cognition - Extremities Exam Extremities: Present: no cyanosis, no clubbing, edema Assessment and Plan (1) Diabetes 1.5, managed as type 2 Status: Acute Category: Medical Code(s): E13.9 - Other specified diabetes mellitus without complications (2) Obesity (BMI 30-39.9) Status: Acute Category: Medical Code(s): E66.9 - Obesity, unspecified (3) Pneumonia due to COVID-19 virus Status: Acute Category: Medical Code(s): U07.1 - COVID-19; J12.82 - Pneumonia due to coronavirus disease 2019 (4) Hypertension Status: Chronic Qualifiers: Hypertension type: unspecified Qualified Code(s): I10 - Essential (primary) hypertension Category: Medical Code(s): I10 - Essential (primary) hypertension (5) Respiratory failure with hypoxia Status: Acute Qualifiers: Chronicity: acute on chronic Qualified Code(s): J96.21 - Acute and chronic respiratory failure with hypoxia Category: Medical Code(s): J96.91 - Respiratory failure, unspecified with hypoxia - Assessment and plan all Dx Assessment and Plan for all problems:: Assessment and Plan for all problems:: #History of COVID-19 pneumonia: #Hospital-acquired pneumonia: Ms. Van is a 75-year-old female recently admitted to the hospital with worsening respiratory failure and COVID-19 needing intubation and mechanical ventilatory support, extubated and was discharged home on a 2 L nasal cannula along with continuation of levofloxacin to complete a 7-day course (received vancomycin and cefepime prior to this) presented to the hospital again with worsening respiratory distress pulmonary was called for further management. CTA performed on admission and did not show any notes of pulmonary embolism, bilateral worsening groundglass opacities and patchy airspace disease. Improved bilateral effusion. started on Ertapenem on admission changed to cefepime CRP significantly elevated to 192 from her recent admission at 8. Interval update: Patient respiratory is remained relatively stable. Worsening renal function and metabolic acidosis.. Plan: -Intubated and sedated. WEan sedation to facilitate SBT. Continue propofol and fentanyl. No need for deep sedation -Continue mechanical ventilatory support. on 10 PEEP and 50% FiO2. PEEP weaned to 8. Wean sedation and SBT today Chest x-ray relatively unchanged. ABG continue to show metabolic acidosis. Cefepime x 7 days for hospital-acquired pneumonia . Blood and sputum cultures negative so far. Nasal MRSA PCR negative Continue methylprednisolone 125 every 12 hours. DuoNebs every 6 hours scheduled along budedsonide every 12 scheduled. -Afebrile. Hemodynamically stable. Echo from most recent admission mild LV hypertrophy, EF 55%. -Abdomen soft nontender. Hold tube feeds -BUN & Cr progressively worsening, decreasing urine output, oliguric KELLE. No evidence of lactic acidosis. Noted to have anion gap metabolic acidosis . ABG continue to show metabolic acidosis. Hyperkalemia and anion gap improved. -Initiate bicarb tabs. Discontinue maintenance fluids. -Continue mechanical ventilatory support - Continue AnalgoSedation with Propofol and Fentanyl with CPOT gal less than or euqal to 2 and RASS goal of to 2 (No need for deep sedation) - VAP bundle
--- NOTE | 2021-05-15 08:43 | XR_ITS ---
FINAL REPORT CLINICAL HISTORY: Hypoxia COMPARISON: 1 day prior FINDINGS: The ET and NG tubes remain in place. The heart size is normal. The mediastinum is normal. There are stable pulmonary opacities that could represent edema or pneumonia. There is no pneumothorax. There is postoperative change involving both shoulders. IMPRESSION: Stable pulmonary opacities, edema or pneumonia. Reviewed, Interpreted and Dictated by David Sorto III, MD Transcribed by Calrin Ashford Authenticated by David Sorto III, MD on 05/15/2021 10:18:24 AM [facility]
--- NOTE | 2021-05-15 10:23 | PC.NURSE ---
Insulin drip stopped at this time per MD order
[2021-05-15 11:16] LABS: Basophils % 0.1 % (0.1-2.0); Eosinophils % 0.1 % (0.1-12.0); Hematocrit 25.1 % (37.0-47.0); Hemoglobin 7.7 g/dL (12.2-16.2); Lymphocytes # 0.5 K/mm3 (0.7-4.5); Lymphocytes % 10.1 % (10-50); Mean Corpuscular HGB Conc 30.8 g/dL (31.8-35.4); Mean Corpuscular Hemoglobin 28.1 pg (27.0-31.2); Mean Corpuscular Volume 91.2 fl (81-99); Mean Platelet Volume 9.5 fl (7.4-10.4); Monocytes # 0.2 K/mm3 (0.1-1.0); Monocytes % 3.1 % (1.7-9.3); Neutrophils # 4.6 K/mm3 (1.8-7.8); Neutrophils % 86.6 % (37.0-80.0); Platelet Count 133 K/mm3 (142-424); Red Blood Count 2.75 M/mm3 (4.20-5.40); Red Cell Distribution Width 16.1 % (11.5-17.5); White Blood Count 5.4 K/mm3 (4.8-10.8)
[2021-05-15 11:18] LABS: MANUAL DIFFERENTIAL MANUAL DIFFERENTIAL (MANUAL DIFF)
[2021-05-15 12:14] LABS: Lymphocytes % 11 % (10-50); Monocytes % 5 % (2-9); Neutrophils % 84 % (42-76); Total Cells Counted 100
[2021-05-15 12:15] LABS: Hypochromasia 1+; Platelet Estimate Normal
--- NOTE | 2021-05-15 12:47 | HMH.ACPN2 ---
Internal Medicine - PN: Subj *Date: 05/15/21 *Time: 12:47 Interval history: pt grossly stable on vent -pul note reviewed Exam Vital signs and Labs for Last 24 Hours: Temp Pulse Resp BP Pulse Ox 97.5 F L 59 L 24 159/55 H 96 05/15/21 08:00 05/15/21 11:18 05/15/21 11:00 05/15/21 11:00 05/15/21 11:00 Laboratory Results - last 24 hr 05/14/21 15:42: POC Glucose 375 H* 05/14/21 17:45: POC Glucose 343 H* 05/14/21 20:18: POC Glucose 287 H 05/14/21 22:10: POC Glucose 241 H 05/15/21 00:25: POC Glucose 204 H 05/15/21 02:08: POC Glucose 175 H 05/15/21 04:22: POC Glucose 150 H 05/15/21 05:57: WBC 5.4 D, RBC 2.75 L, Hgb 7.7 L, Hct 25.1 L, MCV 91.2, MCH 28.1, MCHC 30.8 L, RDW 16.1, Plt Count 133 L D, MPV 9.5, Neut % (Auto) 86.6 H, Lymph % (Auto) 10.1, [place] % (Auto) 3.1, Eos % (Auto) 0.1, Baso % (Auto) 0.1, Neut # (Auto) 4.6, Lymph # (Auto) 0.5 L, [place] # (Auto) 0.2, Eos # (Auto) 0.0, Baso # (Auto) 0.0, Total Counted 100, Neutrophils % (Manual) 84 H, Lymphocytes % (Manual) 11, Monocytes % (Manual) 5, Platelet Estimate Normal, Hypochromasia 1+ 05/15/21 06:00: Specimen Source Right radial, O2 % 50%, ABG pH 7.16 L*, ABG pCO2 35.4, ABG pO2 92.8, ABG HCO3 12.3 L, ABG Total CO2 13.4 L, ABG O2 Saturation 96, ABG Base Excess -16.4 L, Tru Test Patient unable, ABG Lactate 0.9, Vent Rate 22, Tidal Volume 440, PEEP 10 05/15/21 06:06: POC Glucose 133 H 05/15/21 06:50: Sodium 138, Potassium 4.9, Chloride 118 H, Carbon Dioxide 12 L, Anion Gap 12.9, BUN 104 H*, Creatinine 1.80 H D, Estimated Creat Clear 44, Estimated GFR 28 L, Est GFR ( Amer) 33 L D, Glucose 117 H, Calcium 7.9 L I & O for Last 24 hours: Intake & Output 05/13/21 05/14/21 05/15/21 05/16/21 11:59 11:59 11:59 11:59 Intake Total 5310.417 / 5310.417 5820.25 / 5820.25 3531.5 / 3531.5 Output Total 745 / 800 1035 / 1035 605 / 605 Balance 4565.417 / 4510.417 4785.25 / 4785.25 2926.5 / 2926.5 Weight 201 lb 8.04 oz 201 lb 8.04 oz 224 lb 14.4 oz - Constitutional Comments: sedated - *Routine HEENT Exam Head: Present: normocephalic Eye: Present: EOMI, PERRL ENT: Present: other (intubated ) - *Routine Neck Exam Absent: JVD - *Routine Respiratory Exam Present: patient mechanically ventilated - *Routine Cardiovascular Exam Present: RRR - *Routine Abdominal Exam Present: soft - *Routine Extremities Exam Present: edema - *Routine Skin Exam Present: intact - *Routine Neurological Exam sedated on vent - Routine Psychiatric Exam Present: unable to assess Assessment and Plan (1) Diabetes 1.5, managed as type 2 Status: Acute Category: Medical Code(s): E13.9 - Other specified diabetes mellitus without complications (2) Obesity (BMI 30-39.9) Status: Acute Category: Medical Code(s): E66.9 - Obesity, unspecified (3) Pneumonia due to COVID-19 virus Status: Acute Category: Medical Code(s): U07.1 - COVID-19; J12.82 - Pneumonia due to coronavirus disease 2019 (4) Hypertension Status: Chronic Qualifiers: Hypertension type: unspecified Qualified Code(s): I10 - Essential (primary) hypertension Category: Medical Code(s): I10 - Essential (primary) hypertension (5) Respiratory failure with hypoxia Status: Acute Qualifiers: Chronicity: acute on chronic Qualified Code(s): J96.21 - Acute and chronic respiratory failure with hypoxia Category: Medical Code(s): J96.91 - Respiratory failure, unspecified with hypoxia
[2021-05-15 16:05] LABS: POC Glucose,Bedside 146 (70-110)
[2021-05-15 16:26] LABS: POC Glucose,Bedside 360 (70-110)
[2021-05-15 20:33] LABS: POC Glucose,Bedside 452 (70-110)
[2021-05-16] VITALS (37 sets, daily range): BP systolic 88–154; BP diastolic 32–62; PULSE 56–86; RESP 21–26; TEMP 36.4–36.6; O2SAT 92–99; BMI 37.5
--- NOTE | 2021-05-16 06:00 | XR_ITS ---
PROCEDURE INFORMATION: Exam: XR Chest Exam date and time: 05/16/2021 6:00 AM Age: 75 years old Clinical indication: Device placement; Ett placement (vent status); Patient HX: Covid +; Additional info: Ett and og placement TECHNIQUE: Imaging protocol: XR of the chest. Views: 1 view. COMPARISON: CR XR CHEST PORTABLE 05/15/2021 9:03 AM FINDINGS: Tubes, catheters and devices: Endotracheal tube terminates approximately 3.7 cm above the rudy. NG tube passes into the stomach. Thoracic nerve stimulator is in place. Lungs: Similar bilateral airspace opacities. Pleural spaces: No substantial pleural effusion. No pneumothorax. Heart/Mediastinum: Unremarkable. No cardiomegaly. Bones/joints: Bilateral reverse total shoulder arthroplasty changes. IMPRESSION: 1. No substantial interval change. Similar appearance of bilateral airspace opacities. 2. Endotracheal tube terminates approximately 3.7 cm above the rudy.
[2021-05-16 08:00] LABS: POC Glucose,Bedside 448 (70-110)
--- NOTE | 2021-05-16 08:35 | PC.NURSE ---
Residuals were 50 ml for total shift.
--- NOTE | 2021-05-16 08:54 | P.PN_ITS ---
Internal Medicine - PN: Subj *Date: 05/16/21 *Time: 08:35 Interval history: on vent, no sedation, hr in 50's, decrease urine outpt Exam Vital signs and Labs for Last 24 Hours: Temp Pulse Resp BP Pulse Ox 97.6 F 86 22 108/54 L 95 05/16/21 04:00 05/16/21 07:00 05/16/21 07:00 05/16/21 07:00 05/16/21 07:00 Laboratory Results - last 24 hr 05/15/21 05:57: WBC 5.4 D, RBC 2.75 L, Hgb 7.7 L, Hct 25.1 L, MCV 91.2, MCH 28.1, MCHC 30.8 L, RDW 16.1, Plt Count 133 L D, MPV 9.5, Neut % (Auto) 86.6 H, Lymph % (Auto) 10.1, [place] % (Auto) 3.1, Eos % (Auto) 0.1, Baso % (Auto) 0.1, Neut # (Auto) 4.6, Lymph # (Auto) 0.5 L, [place] # (Auto) 0.2, Eos # (Auto) 0.0, Baso # (Auto) 0.0, Total Counted 100, Neutrophils % (Manual) 84 H, Lymphocytes % (Manual) 11, Monocytes % (Manual) 5, Platelet Estimate Normal, Hypochromasia 1+ 05/15/21 08:19: POC Glucose 146 H 05/15/21 16:14: POC Glucose 360 H* 05/15/21 20:25: POC Glucose 452 H* 05/16/21 05:22: POC Glucose 448 H* I & O for Last 24 hours: Intake & Output 05/13/21 05/14/21 05/15/21 05/16/21 11:59 11:59 11:59 11:59 Intake Total 5310.417 / 5310.417 5820.25 / 5820.25 3531.5 / 3531.5 1344.25 / 1344.25 Output Total 745 / 800 1035 / 1035 605 / 605 367 / 367 Balance 4565.417 / 4510.417 4785.25 / 4785.25 2926.5 / 2926.5 977.25 / 977.25 Weight 201 lb 8.04 oz 201 lb 8.04 oz 224 lb 14.4 oz 225 lb 1.6 oz - Constitutional no acute distress - *Routine HEENT Exam Head: Present: normocephalic Eye: Present: PERRL ENT: Present: mucous membranes moist - *Routine Neck Exam Present: supple. Absent: lymphadenopathy - *Routine Respiratory Exam Present: patient mechanically ventilated - *Routine Cardiovascular Exam Present: RRR - *Routine Abdominal Exam Present: soft, normoactive bowel sounds. Absent: tenderness - *Routine Extremities Exam Present: normal capillary refill. Absent: cyanosis, clubbing, edema - *Routine Skin Exam Present: warm. Absent: rash - *Routine Neurological Exam non responsive to stimuli Assessment and Plan (1) Diabetes 1.5, managed as type 2 Status: Acute Category: Medical Code(s): E13.9 - Other specified diabetes mellitus without complications (2) Obesity (BMI 30-39.9) Status: Acute Category: Medical Code(s): E66.9 - Obesity, unspecified (3) Pneumonia due to COVID-19 virus Status: Acute Category: Medical Code(s): U07.1 - COVID-19; J12.82 - Pneumo karen due to coronavirus disease 2019 (4) Hypertension Status: Chronic Qualifiers: Hypertension type: unspecified Qualified Code(s): I10 - Essential (primary) hypertension Category: Medical Code(s): I10 - Essential (primary) hypertension (5) Respiratory failure with hypoxia Status: Acute Qualifiers: Chronicity: acute on chronic Qualified Code(s): J96.21 - Acute and chronic respiratory failure with hypoxia Category: Medical Code(s): J96.91 - Respiratory failure, unspecified with hypoxia - Assessment and plan all Dx Assessment and Plan for all problems:: rounded with dr vicente all orders per dr vicente follow with pulmonology
--- NOTE | 2021-05-16 09:10 | HMH.PULMPN ---
Internal Medicine - PN: Subj *Date: 05/16/21 *Time: 12:04 Interval history: No acute respiratory vents overnight. Patient continues to remain on minimal vent settings. Exam - Constitutional Constitutional:: Present: no acute distress, comfortable - HENMT Exam HENMT: Present: normocephalic, atraumatic - Eye Exam Eyes:: Present: normal appearance both eyes and related structures - Neck Exam Neck:: Present: normal visual inspection - Respiratory Exam Respiratory:: Present: respiratory distress, crackles. Absent: wheezing - Cardiovascular Exam Cardiac:: Present: S1, S2 - GI Exam GI:: Present: soft - Skin Exam Skin: Present: warm, no rash - Neurological Exam Neurological: Absent: alert, awake, normal cognition - Extremities Exam Extremities: Present: no cyanosis, no clubbing, edema Assessment and Plan (1) Diabetes 1.5, managed as type 2 Status: Acute Category: Medical Code(s): E13.9 - Other specified diabetes mellitus without complications (2) Obesity (BMI 30-39.9) Status: Acute Category: Medical Code(s): E66.9 - Obesity, unspecified (3) Pneumonia due to COVID-19 virus Status: Acute Category: Medical Code(s): U07.1 - COVID-19; J12.82 - Pneumonia due to coronavirus disease 2019 (4) Hypertension Status: Chronic Qualifiers: Qualified Code(s): I10 - Essential (primary) hypertension Category: Medical Code(s): I10 - Essential (primary) hypertension (5) Respiratory failure with hypoxia Status: Acute Qualifiers: Qualified Code(s): J96.21 - Acute and chronic respiratory failure with hypoxia Category: Medical Code(s): J96.91 - Respiratory failure, unspecified with hypoxia - Assessment and plan all Dx Assessment and Plan for all problems:: #History of COVID-19 pneumonia: #Hospital-acquired pneumonia: Ms. Van is a 75-year-old female recently admitted to the hospital with worsening respiratory failure and COVID-19 needing intubation and mechanical ventilatory support, extubated and was discharged home on a 2 L nasal cannula along with continuation of levofloxacin to complete a 7-day course (received vancomycin and cefepime prior to this) presented to the hospital again with worsening respiratory distress pulmonary was called for further management. CTA performed on admission and did not show any notes of pulmonary embolism, bilateral worsening groundglass opacities and patchy airspace disease. Improved bilateral effusion. started on Ertapenem on admission changed to cefepime CRP significantly elevated to 192 from her recent admission at 8. Interval update: Patient respiratory remained stable on minimal vent settings. Renal function continued to worsen worsening BUN, and electrolyte derangements. Plan: -Intubated and sedated. Sedation was held since this morning. Will wait for patient to be awake to perform SBT. -Continue mechanical ventilatory support. on 8 PEEP and 50% FiO2.Wean sedation and SBT today Chest x-ray relatively unchanged. ABG continue to show metabolic acidosis. Cefepime x 7 days for hospital-acquired pneumonia . Blood and sputum cultures negative so far. Nasal MRSA PCR negative Continue methylprednisolone 125 every 12 hours. DuoNebs every 6 hours scheduled along budedsonide every 12 scheduled. -Afebrile. Echo from most recent admission mild LV hypertrophy, EF 55%. Continue to monitor -Abdomen soft nontender. Continue tube feeds. Patient disproportionate increase in BUN relative to creatinine also concerning for GI bleed. Patient FOBT tested positive. We will continue to monitor. Slowly decreasing hemoglobin, 9.1 from 05/14/2021, 7.3 today. -Progressively worsening BUN/creatinine with worsening oliguric KELLE. Hyperkalemia and anion gap metabolic acidosis. Will initiate the patient on insulin drip along with Kayexalate. Lasix 120 mg IV once. Unfortunately patient had a cardiopulmonary arrest with bradycardia after she was evaluated this mo
[2021-05-16 09:34] LABS: Chloride 115 mmol/L (98-107); Sodium 131 mmol/L (136-145)
[2021-05-16 09:37] LABS: Creatinine Clearance Estimated 42 mL/min (50-200); Estimated Glomerular Filt Rate 26 ml/min (>60); GFR (African American) 31 ML/MIN (>60)
[2021-05-16 09:59] LABS: Anion Gap 16.2 mEq/L (5-15); Calcium 7.3 mg/dl (8.4-10.2)
[2021-05-16 10:07] LABS: Potassium 6.2 mmoL/L (3.5-5.1)
[2021-05-16 10:08] LABS: Blood Urea Nitrogen 137 mg/dl (7-17); Carbon Dioxide 6 mmol/L (22.0-30.0); Glucose 406 mg/dl (74-100)
[2021-05-16 10:10] LABS: Basophils # 0.1 K/mm3 (0-0.2); Basophils % 0.5 % (0.1-2.0); Eosinophils % 0.2 % (0.1-12.0); Hemoglobin 7.3 g/dL (12.2-16.2); Lymphocytes # 0.9 K/mm3 (0.7-4.5); Lymphocytes % 6.1 % (10-50); Mean Corpuscular HGB Conc 31.9 g/dL (31.8-35.4); Mean Corpuscular Hemoglobin 30.3 pg (27.0-31.2); Mean Platelet Volume 10.3 fl (7.4-10.4); Monocytes # 0.3 K/mm3 (0.1-1.0); Neutrophils # 12.7 K/mm3 (1.8-7.8); Neutrophils % 91.2 % (37.0-80.0); Platelet Count 163 K/mm3 (142-424); Red Blood Count 2.42 M/mm3 (4.20-5.40); Red Cell Distribution Width 16.5 % (11.5-17.5); White Blood Count 13.9 K/mm3 (4.8-10.8)
[2021-05-16 10:12] LABS: MANUAL DIFFERENTIAL MANUAL DIFFERENTIAL (MANUAL DIFF)
[2021-05-16 10:18] LABS: Occult Blood,Stool Positive (Negative)
[2021-05-16 10:31] LABS: Lymphocytes % 6 % (10-50); Monocytes % 1 % (2-9); Neutrophils % 93 % (42-76); Platelet Estimate Normal; RBC Morphology Normal; Total Cells Counted 100
--- NOTE | 2021-05-16 11:09 | HMH.CCN ---
Critical Care Event Note Code activated: Yes Narrative: This case had a high probability of a clinically significant, sudden, or life threatening deterioration of this patient's condition which required my full and direct attention, intervention and personal management. CODE JULIA called. The patient is intubated and on the ventilator for Covid pneumonia. Nurses report that she became bradycardic, then asystolic. CPR was started and she was given 1 dose of epinephrine prior to my arrival. Pulse check was performed after I arrived in the room and she had regained spontaneous circulation with palpable femoral pulse. She reportedly had a potassium of 6.2 this morning. They report that she had been hyperkalemic previously and was on insulin drip yesterday but this was discontinued when her potassium improved. Nurse is in contact with Dr. Christianson who ordered bicarbonate and calcium. Critical care time: less than 30 mins [facility] Critical Care Exam Vital signs: Temp Pulse Resp BP Pulse Ox 97.6 F 86 22 108/54 L 95 05/16/21 04:00 05/16/21 07:00 05/16/21 07:00 05/16/21 07:00 05/16/21 07:00
[2021-05-16 11:16] LABS: ABG Base Excess -13.2 mmol/L (-2.4-2.3); ABG Oxygen Saturation 99 % (90-100); ABG PCO2 49.7 mmhg (35.0-45.0); ABG PO2 213.1 mmhg (80-100); ABG TCO2 17.5 mmhg (23-27)
--- NOTE | 2021-05-16 11:24 | ECG_ITS ---
APPROVED REPORT Exam: Resting ECG HR:63 bpm ECG Measurements Heart Rate 63 AXES MA 214 P 35 QRSd 109 QRS 11 QT 452 T 47 QTc 458 Conclusion SINUS RHYTHM WITH FIRST DEGREE AV BLOCK NONSPECIFIC ST & T-WAVE ABNORMALITY ABNORMAL ECG UNCONFIRMED REPORT Electronically signed by : Justin Lee MD 05/17/2021 19:32:08
--- NOTE | 2021-05-16 11:27 | XR_ITS ---
FINAL REPORT CLINICAL HISTORY: CODE BLUE COMPARISON: 5:00 a.m. the same day FINDINGS: SINGLE VIEW CHEST. There is cardiomegaly. An ET tube is present with the tip in the midthoracic trachea. An NG tube is present with the tip in the stomach. The mediastinum is unremarkable. There are persistent bilateral pulmonary opacities which may represent edema or pneumonia which is not significantly changed. There is no pneumothorax. There is postoperative change from bilateral shoulder arthroplasty. IMPRESSION: No significant change from the prior exam. Reviewed, Interpreted and Dictated by David Sorto III, MD Transcribed by Angeline Dickerson Authenticated by David Sorto III, MD on 05/16/2021 12:37:54 PM [facility]
[2021-05-16 11:44] LABS: Allen's Test Patient Unable; Source Right Radial
[2021-05-16 11:45] LABS: ABG PH 7.13 mmol/L (7.35-7.45)
--- NOTE | 2021-05-16 11:51 | HMH.CNCARD ---
History of Present Illness Consult date: 05/16/21 Requesting physician: Adair Christianson Consult reason: shortness of breath Chief complaint: cardiac and respiratory arrest History of present illness: 75-year-old female admitted with Covid and pneumonia on 05/11/2021. Patient was noted to be in respiratory failure with hypoxemia. cardiology was consulted after patient went into cardiac and respiratory arrest. Patient has been intubated since arriving to the facility. Nursing staff has been trying to wean sedation to facilitate SBT. Patient did have a recent visit a few weeks ago and was diagnosed with Covid. Covid has become worse. Pulmonology and PCP has been following patient. Nursing staff witnessed patient went into asystole. CODE BLUE was called. 1 amp of epi was given IV. Pulse was obtained. Patient was noted to be in sinus bradycardia with a heart rate of 50bpm. EKG was performed which revealed sinus rhythm with first-degree AV block, nonspecific ST and T wave abnormality with a heart rate of 63 bpm. Patient remains intubated and unresponsive. Patient was noted to have hyperkalemia at 6.2. Pulmonology had ordered bicarb and calcium to correct the hyperkalemia. Patient also noted to have decreased urine output. Patient noted to be in metabolic acidosis. Patient does have history of PAF. Uncertain if patient has been on anticoagulation for PAF. Patient does have history of being anemic. H&H noted as of low. History of uncontrolled diabetes. Patient is postop shoulder surgery from less than 1 month ago. Echocardiogram performed on April 30, 2019 which revealed EF 55% with no regional wall motion abnormality, trace MR and TR noted. Patient will be started on Levophed per PCP and pulmonology. Prognosis is poor for this patient. Recommend supportive care and correction of hyperkalemia. Obtain echocardiogram to assess LV function and valve status. Pending on the echocardiogram, medication treatment therapies may be recommended. CXR:IMPRESSION: 1. No substantial interval change. Similar appearance of bilateral airspace opacities. 2. Endotracheal tube terminates approximately 3.7 cm above the rudy. Echo:Conclusion (04/30/21) 1. Biatrial enlargement, normal left ventricular size, mild concentric left ventricular hypertrophy, visually estimated ejection fraction 55% with no regional wall motion abnormality, endocardial surfaces are poorly visualized. Diastolic parameters are inconclusive. 2. Mildly enlarged right ventricle with normal contractility. 3. Trace mitral and tricuspid regurgitation. 4. No significant pericardial effusion noted. 5. Inferior vena cava is poorly visualized. [facility] History I have reviewed the patient's past medical history: Yes Medical History: Reports:: Diabetes Mellitus Type 1, Diabetes Mellitus Type 2, Hypertension Denies:: Cancer, MRSA *Have you ever received a pneumonia vaccine?: Yes *Have you received a flu vaccine this season?: Yes Other Medical History: Reports: Anemia Laterality Cases: Left: Arthroscopy Knee, Arthroscopy Shoulder Other Surgeries: Yes: Appendectomy, Other Amputation: No - *Social History Smoking Status: Never smoker # Packs/Day (cigarettes): 1 Alcohol Intake: never *Occupational Status:: retired Housing: house *Travel in the last 8 weeks: None Family Hx:: No significant family history Meds Home Medications Medication Instructions Recorded Confirmed Type Albuterol Sulfate [Albuterol 2 puff IH Q4HP PRN 04/27/21 05/06/21 History Sulfate Hfa] Atorvastatin Calcium [Lipitor 20mg 20 mg PO HS 04/27/21 05/06/21 History Tab] Escitalopram Oxalate 20 mg PO DAILY 04/27/21 05/06/21 History Fluticasone Propionate [Flonase 1 spr NS BID 04/27/21 05/06/21 History 50mcg nasal spray 16gm] Gabapentin 800 mg PO TID 04/27/21 05/06/21 History Linagliptin [Tradjenta 5mg tablet] 5 mg PO DAILY 04/27/21 05/06/21 History Memantine HCl [Namenda XR 7
[2021-05-16 12:04] LABS: POC Glucose,Bedside 465 (70-110)
[2021-05-16 12:57] LABS: Basophils # 0.1 K/mm3 (0-0.2); Basophils % 0.3 % (0.1-2.0); Eosinophils % 0.2 % (0.1-12.0); Hematocrit 24.6 % (37.0-47.0); Hemoglobin 7.9 g/dL (12.2-16.2); Lymphocytes # 0.7 K/mm3 (0.7-4.5); Lymphocytes % 4.6 % (10-50); Mean Corpuscular HGB Conc 32.1 g/dL (31.8-35.4); Mean Corpuscular Hemoglobin 29.9 pg (27.0-31.2); Mean Corpuscular Volume 93.3 fl (81-99); Mean Platelet Volume 11.3 fl (7.4-10.4); Monocytes # 0.3 K/mm3 (0.1-1.0); Monocytes % 1.8 % (1.7-9.3); Neutrophils # 13.9 K/mm3 (1.8-7.8); Platelet Count 117 K/mm3 (142-424); Red Blood Count 2.63 M/mm3 (4.20-5.40); Red Cell Distribution Width 16.3 % (11.5-17.5); White Blood Count 14.9 K/mm3 (4.8-10.8)
--- NOTE | 2021-05-16 12:59 | PC.NURSE ---
1053- Patient asystolic, Code Blue initiated 1054- Epi given 1056 pulse check, femoral pulse present, rate 55 1055- Dr Sahu at bedside 1055- Dr Christianson and Dr Teague contacted at this time, given order per Dr Christianson for 2 amps bicarb, 1gm Mag, 1gm Calcium chloride 1102- Manual BP 154/62 1103- Calcium Chloride given 1104- First amp bicarb given 1105- Second amp bicarb given 1107- gram of mag hung and infusing at this time Patient remains in SR with rate of 61, BP 93/37 Map 56, given order for levophed drip, started at this time
[2021-05-16 13:01] LABS: Chloride 115 mmol/L (98-107); Potassium 5.9 mmoL/L (3.5-5.1); Sodium 132 mmol/L (136-145)
[2021-05-16 13:03] LABS: Creatinine Clearance Estimated 36 mL/min (50-200); Estimated Glomerular Filt Rate 22 ml/min (>60); GFR (African American) 26 ML/MIN (>60)
[2021-05-16 13:04] LABS: Anion Gap 12.9 mEq/L (5-15); Calcium 8.2 mg/dl (8.4-10.2)
[2021-05-16 13:16] LABS: Blood Urea Nitrogen 136 mg/dl (7-17); Carbon Dioxide 10 mmol/L (22.0-30.0)
[2021-05-16 13:17] LABS: Glucose 404 mg/dl (74-100)
[2021-05-16 15:06] LABS: POC Glucose,Bedside 453 (70-110)
[2021-05-16 17:32] LABS: POC Glucose,Bedside 410 (70-110)
--- NOTE | 2021-05-16 20:02 | PC.NURSE ---
193-/41 (60), increased levo drip to 18 1944-/35 (55) increased levo drip to 20
--- NOTE | 2021-05-16 20:39 | PC.NURSE ---
fsbs 344, increased insulin drip to 8units/hr per protocol
--- NOTE | 2021-05-16 22:25 | PC.NURSE ---
pt;s bp 88/40 (56), increased levo drip to 22
[2021-05-16 22:26] LABS: POC Glucose,Bedside 312 (70-110)
[2021-05-17] VITALS (17 sets, daily range): BP systolic 98–121; BP diastolic 30–45; PULSE 55–63; RESP 20–27; TEMP 36.4; O2SAT 81–100; BMI 37.0
[2021-05-17 00:17] LABS: POC Glucose,Bedside 271 (70-110)
--- NOTE | 2021-05-17 01:08 | PC.NURSE ---
p 98/33 (54), increased levo drip to 24
[2021-05-17 02:25] LABS: POC Glucose,Bedside 196 (70-110)
[2021-05-17 04:50] LABS: POC Glucose,Bedside 167 (70-110)
--- NOTE | 2021-05-17 06:14 | PC.NURSE ---
pt's fsbs 137, decreased insulin drip to 4units/hr from 6
[2021-05-17 06:22] LABS: POC Glucose,Bedside 137 (70-110)
[2021-05-17 07:20] LABS: ABG Base Excess -20.3 mmol/L (-2.4-2.3); ABG HCO3 10.8 mmhg (22.0-26.0); ABG Oxygen Saturation 96 % (90-100); ABG PCO2 43.7 mmhg (35.0-45.0); ABG PO2 99.8 mmhg (80-100); ABG TCO2 12.1 mmhg (23-27)
--- NOTE | 2021-05-17 07:25 | XR_ITS ---
FINAL REPORT CLINICAL HISTORY: daily while intubated COMPARISON: 05/16/2021 FINDINGS: SINGLE VIEW CHEST There is cardiomegaly. ET tube and NG tube are in place. Spinal stimulator is present. The mediastinum is unremarkable. There is mild but worsening left base atelectasis or pneumonia. There is no pneumothorax. Bilateral shoulder arthroplasties are noted. IMPRESSION: Mild but worsening left base atelectasis or pneumonia. Reviewed, Interpreted and Dictated by David Sorto III, MD Transcribed by Wendy Rosado Authenticated by David Sorto III, MD on 05/17/2021 10:16:18 AM [facility]
[2021-05-17 07:30] LABS: Allen's Test ACCEPTABLE; Oxygen 65 %; PEEP 8; Source Right Radial; Tidal Volume 440
[2021-05-17 07:31] LABS: Lactate Arterial 1.1 mmol/L (0.4-2.0); Vent Rate 22
[2021-05-17 07:32] LABS: ABG PH 7.01 mmol/L (7.35-7.45)
--- NOTE | 2021-05-17 07:51 | PC.NURSE ---
RESP CARE NOTE: Pt rate increased to [address] Christianson t/o. Will continue to monitor.
[2021-05-17 08:38] LABS: Basophils # 0.3 K/mm3 (0-0.2); Basophils % 0.7 % (0.1-2.0); Eosinophils # 0.2 K/mm3 (0.0-0.4); Eosinophils % 0.5 % (0.1-12.0); Hematocrit 27.1 % (37.0-47.0); Lymphocytes # 0.6 K/mm3 (0.7-4.5); Lymphocytes % 1.8 % (10-50); Mean Corpuscular HGB Conc 32.6 g/dL (31.8-35.4); Mean Corpuscular Hemoglobin 28.7 pg (27.0-31.2); Mean Corpuscular Volume 88.2 fl (81-99); Mean Platelet Volume 10.6 fl (7.4-10.4); Monocytes # 0.5 K/mm3 (0.1-1.0); Monocytes % 1.5 % (1.7-9.3); Neutrophils # 32.8 K/mm3 (1.8-7.8); Neutrophils % 95.5 % (37.0-80.0); Platelet Count 330 K/mm3 (142-424); Red Blood Count 3.08 M/mm3 (4.20-5.40); Red Cell Distribution Width 17.4 % (11.5-17.5); White Blood Count 34.4 K/mm3 (4.8-10.8)
--- NOTE | 2021-05-17 09:09 | HMH.PULMPN ---
Internal Medicine - PN: Subj *Date: 05/17/21 *Time: 10:52 Interval history: Progressively worsening renal function, refractory acidosis and hyperkalemia. Exam - Constitutional Constitutional:: Absent: no acute distress, comfortable - HENMT Exam HENMT: Present: normocephalic - Eye Exam Eyes:: Present: normal appearance both eyes and related structures - Neck Exam Neck:: Present: normal visual inspection - Respiratory Exam Respiratory:: Present: respiratory distress, crackles. Absent: wheezing - Cardiovascular Exam Cardiac:: Present: S1, S2. Absent: regular rhythm - GI Exam GI:: Present: soft - Neurological Exam Neurological: Absent: alert, awake, normal cognition - Extremities Exam Extremities: Present: edema. Absent: no cyanosis, no clubbing Assessment and Plan (1) Diabetes 1.5, managed as type 2 Status: Acute Category: Medical Code(s): E13.9 - Other specified diabetes mellitus without complications (2) Obesity (BMI 30-39.9) Status: Acute Category: Medical Code(s): E66.9 - Obesity, unspecified (3) Pneumonia due to COVID-19 virus Status: Acute Category: Medical Code(s): U07.1 - COVID-19; J12.82 - Pneumonia due to coronavirus disease 2019 (4) Hypertension Status: Chronic Qualifiers: Hypertension type: unspecified Qualified Code(s): I10 - Essential (primary) hypertension Category: Medical Code(s): I10 - Essential (primary) hypertension (5) Respiratory failure with hypoxia Status: Acute Qualifiers: Chronicity: acute on chronic Qualified Code(s): J96.21 - Acute and chronic respiratory failure with hypoxia Category: Medical Code(s): J96.91 - Respiratory failure, unspecified with hypoxia - Assessment and plan all Dx Assessment and Plan for all problems:: #History of COVID-19 pneumonia: #Hospital-acquired pneumonia: Ms. Van is a 75-year-old female recently admitted to the hospital with worsening respiratory failure and COVID-19 needing intubation and mechanical ventilatory support, extubated and was discharged home on a 2 L nasal cannula along with continuation of levofloxacin to complete a 7-day course (received vancomycin and cefepime prior to this) presented to the hospital again with worsening respiratory distress pulmonary was called for further management. CTA performed on admission and did not show any notes of pulmonary embolism, bilateral worsening groundglass opacities and patchy airspace disease. Improved bilateral effusion. started on Ertapenem on admission changed to cefepime CRP significantly elevated to 192 from her recent admission at 8. Patient respiratory status improved and was on minimal vent settings with a PEEP of 8 and FiO2 100%. Unfortunately patient renal function continued to worsen with worsening BUN/creatinine, hyperkalemia and refractory acidosis. Unfortunately patient had a cardiopulmonary arrest 2/2 bradycardia on 05/16/2021 with return of spontaneous circulation after 1 round of CPR and epi (Patient was also given 2 amps of bicarb, calcium and Magnesium during the code) Interval update: Renal function continued to worsen with repeat urinalysis refractory acidosis needing emergent dialysis. Patient received Lasix yesterday with no appropriate response. Primary team has discussed with the family and they would like to pursue comfort care at this point. We will continue ongoing treatments up until then. Hospice consult in place. Plan: -Intubated and sedated. Sedation was held since yesterday. Continue to monitor. -Continue mechanical ventilatory support. on 8 PEEP and 50% FiO2.chest x-ray relatively unchanged. ABG continue to show significant metabolic acidosis and hyperkalemia. Cefepime x 7 days for hospital-acquired pneumonia . Blood and sputum cultures negative so far. Nasal MRSA PCR negative Continue methylprednisolone 125 every 12 hours. DuoNebs every 6 hours scheduled along budedsonide every 12 scheduled. Echo from m
[2021-05-17 09:26] LABS: Hemoglobin 8.6 g/dL (12.2-16.2)
[2021-05-17 09:27] LABS: Chloride 116 mmol/L (98-107); MANUAL DIFFERENTIAL MANUAL DIFFERENTIAL (MANUAL DIFF); Sodium 137 mmol/L (136-145)
[2021-05-17 09:30] LABS: Alanine Aminotransferase 15 U/L (12-78); Albumin Level 2.2 g/dl (3.5-5.0); Albumin/Globulin Ratio 0.9 (1.1-1.8); Alkaline Phosphatase 151 U/L (38-126); Anion Gap 18.3 mEq/L (5-15); Aspartate Amino Transferase 48 U/L (14-36); Bilirubin,Total 0.7 mg/dl (0.2-1.3); Creatinine Clearance Estimated 31 mL/min (50-200); Estimated Glomerular Filt Rate 19 ml/min (>60); GFR (African American) 23 ML/MIN (>60); Globulin 2.5 g/dL (1.3-3.2); Glucose 82 mg/dl (74-100); Total Protein,Serum 4.7 g/dl (6.3-8.2)
[2021-05-17 09:31] LABS: Calcium 7.6 mg/dl (8.4-10.2)
--- NOTE | 2021-05-17 09:39 | HMH.ACPN2 ---
Internal Medicine - PN: Subj *Date: 05/17/21 *Time: 10:46 Interval history: recent events noted given epi was maxed out on levo weaning down oliguric worsening renal function k=6.2 off sedation remains obtunded pulmonary notes revd bicarb and bumex challenge discussed leukocytosis left basilar process on todays's xr Exam Vital signs and Labs for Last 24 Hours: Temp Pulse Resp BP Pulse Ox 97.8 F 58 L 20 103/30 L 100 05/16/21 21:00 05/17/21 07:00 05/17/21 07:00 05/17/21 07:00 05/17/21 07:00 Laboratory Results - last 24 hr 05/16/21 09:04: Sodium 131 L, Potassium 6.2 H* D, Chloride 115 H, Carbon Dioxide 6 L* D, Anion Gap 16.2 H, BUN 137 H* D, Creatinine 1.90 H, Estimated Creat Clear 42, Estimated GFR 26 L, Est GFR ( Amer) 31 L, Glucose 406 H*, Calcium 7.3 L 05/16/21 09:35: Stool Occult Blood Positive A 05/16/21 09:50: WBC 13.9 H D, RBC 2.42 L, Hgb 7.3 L, Hct 23.0 L, MCV 95.0, MCH 30.3, MCHC 31.9, RDW 16.5, Plt Count 163, MPV 10.3, Neut % (Auto) 91.2 H, Lymph % (Auto) 6.1 L, Edmunds % (Auto) 2.0, Eos % (Auto) 0.2, Baso % (Auto) 0.5, Neut # (Auto) 12.7 H, Lymph # (Auto) 0.9, Edmunds # (Auto) 0.3, Eos # (Auto) 0.0, Baso # (Auto) 0.1, Total Counted 100, Neutrophils % (Manual) 93 H, Lymphocytes % (Manual) 6 L, Monocytes % (Manual) 1 L, Platelet Estimate Normal, RBC Morphology Normal 05/16/21 11:14: Specimen Source Right radial, O2 % 100% ambu bag, ABG pH 7.13 L*, ABG pCO2 49.7 H, ABG pO2 213.1 H, ABG HCO3 16.0 L, ABG Total CO2 17.5 L, ABG O2 Saturation 99, ABG Base Excess -13.2 L, Tru Test Patient unable, ABG Lactate 1.0 05/16/21 11:51: POC Glucose 465 H* 05/16/21 12:47: WBC 14.9 H, RBC 2.63 L, Hgb 7.9 L, Hct 24.6 L, MCV 93.3, MCH 29.9, MCHC 32.1, RDW 16.3, Plt Count 117 L D, MPV 11.3 H, Neut % (Auto) 93.0 H, Lymph % (Auto) 4.6 L, Edmunds % (Auto) 1.8, Eos % (Auto) 0.2, Baso % (Auto) 0.3, Neut # (Auto) 13.9 H, Lymph # (Auto) 0.7, Edmunds # (Auto) 0.3, Eos # (Auto) 0.0, Baso # (Auto) 0.1 05/16/21 12:47: Sodium 132 L, Potassium 5.9 H, Chloride 115 H, Carbon Dioxide 10 L D, Anion Gap 12.9, BUN 136 H*, Creatinine 2.20 H, Estimated Creat Clear 36, Estimated GFR 22 L, Est GFR ( Amer) 26 L, Glucose 404 H*, Calcium 8.2 L 05/16/21 14:58: POC Glucose 453 H* 05/16/21 17:15: POC Glucose 410 H* 05/16/21 22:05: POC Glucose 312 H* 05/17/21 00:09: POC Glucose 271 H 05/17/21 02:04: POC Glucose 196 H 05/17/21 04:40: POC Glucose 167 H 05/17/21 06:14: POC Glucose 137 H 05/17/21 07:02: Specimen Source Right radial, O2 % 65, ABG pH 7.01 L*, ABG pCO2 43.7, ABG pO2 99.8, ABG HCO3 10.8 L, ABG Total CO2 12.1 L, ABG O2 Saturation 96, ABG Base Excess -20.3 L, Tru Test Acceptable, ABG Lactate 1.1, Vent Rate 22, Tidal Volume 440, PEEP 8 05/17/21 08:26: WBC 34.4 H* D, RBC 3.08 L, Hgb 8.6 L, Hct 27.1 L, MCV 88.2, MCH 28.7, MCHC 32.6, RDW 17.4, Plt Count 330 D, MPV 10.6 H, Neut % (Auto) 95.5 H, Lymph % (Auto) 1.8 L, Edmunds % (Auto) 1.5 L, Eos % (Auto) 0.5, Baso % (Auto) 0.7, Neut # (Auto) 32.8 H, Lymph # (Auto) 0.6 L, Edmunds # (Auto) 0.5, Eos # (Auto) 0.2, Baso # (Auto) 0.3 H I & O for Last 24 hours: Intake & Output 05/14/21 05/15/21 05/16/21 05/17/21 23:59 23:59 23:59 23:59 Intake Total 4136.75 / 4297.75 2530.25 / 2562.25 1031.798 / 1151.798 873.345 / 873.345 Output Total 855 / 890 615 / 615 Balance 3281.75 / 3407.75 1915.25 / 1947.25 1011.798 / 1131.798 871.345 / 871.345 Weight 201 lb 8.04 oz 224 lb 14.4 oz 225 lb 1.6 oz 222 lb 10.67 oz - Constitutional obtunded - *Routine HEENT Exam Head: Present: normocephalic Eye: Present: EOMI, PERRL ENT: Present: mucous membranes moist - *Routine Neck Exam Present: supple. Absent: lymphadenopathy - *Routine Respiratory Exam Present: patient mechanically ventilated - *Routine Cardiovascular Exam Present: RRR - *Routine Abdominal Exam Present: soft, normoactive bowel sounds. Absent: tenderness - *Routine Extremities Exam Present: extremity cold to touch. Absent: cyanosi
[2021-05-17 09:58] LABS: Lymphocytes % 2 % (10-50); Monocytes % 1 % (2-9); Neutrophils % 97 % (42-76); Total Cells Counted 100
[2021-05-17 09:59] LABS: Platelet Estimate Normal; Poikilocytosis 2+
[2021-05-17 10:00] LABS: Burr Cells 1+
[2021-05-17 10:33] LABS: Potassium 7.3 mmoL/L (3.5-5.1)
[2021-05-17 10:34] LABS: Blood Urea Nitrogen 161 mg/dl (7-17)
[2021-05-17 10:35] LABS: Carbon Dioxide 10 mmol/L (22.0-30.0)
--- NOTE | 2021-05-17 10:39 | PC.NURSE ---
received call from lab ([facility]) reporting the following: K 7.3, BUN 161, CO2 10, Cr 2.50, and GFR 19. Name and verified. Dr. Christianson @ BS and has been updated.
--- NOTE | 2021-05-17 13:00 | PC.NURSE ---
pt terminally extubated at this time per family request. Dr. Cody @ [facility].
--- NOTE | 2021-05-17 13:02 | PC.NURSE ---
RESP CARE NOTE: Pt terminally extubated at 1300 to a 4 lpm nc. Will continue to monitor, Dr Cody in room having further discussion with family.
--- NOTE | 2021-05-17 13:16 | PC.NURSE ---
pt pronounced at [address] Cody. Pt is without a pulse and respirations. Family are at the BS and coping appropriately. Body to be released to [facility] home in [place], [place]
--- NOTE | 2021-05-17 13:53 | PC.NURSE ---
[facility] notified and pt has been ruled out for donation. Spoke to [facility]. .
--- NOTE | 2021-05-17 13:59 | P.DN_ITS ---
Pronouncement Note - Date and Time of Date of : 05/17/21 Time of : 13:15 - Additional Data Confirmation of : no pulse, no respirations, no heart sounds Family: at bedside Attending/PCP notified?: Yes Attending physician: Jonathan Cody MD Was code activated?: No Autopsy requested?: No life claims examiner notified?: No Organ bank notified?: No Advance directives: No
--- NOTE | 2021-05-17 14:00 | PC.NURSE ---
[facility] in [place] contacted.
[2021-06-14 09:05] LABS: ABG Base Excess -13.2 mmol/L (-2.4-2.3); ABG HCO3 16 mmhg (22.0-26.0); ABG Oxygen Saturation 99 % (90-100); ABG PCO2 49.7 mmhg (35.0-45.0); ABG PH 7.13 mmol/L (7.35-7.45); ABG PO2 213.1 mmhg (80-100); ABG TCO2 17.5 mmhg (23-27)
[2021-06-14 09:06] LABS: Allen's Test ACCEPTABLE; Oxygen 100 %; Source R RADIAL
--- NOTE | 2021-07-12 11:53 | P.DN_ITS ---
Discharge Sum: Prov - Provider Primary care physician: Referral ProviderMD Visit Care Team Role Provider Type Referral Provider, Primary Care Provider Referring Adair MD Sammy Other Providers Staff Physician Jose Ravi MD Other Providers Staff Physician PORFIRIO Sanchez Other Providers Physician [facility] Coordinator Briana Choudhary APRN Other Providers Nurse Practitioner Michell Crabtree APRN Other Providers Nurse Practitioner Jonathan Cody MD Attending Provider Staff Physician Elier Teague MD Admit Provider Staff Physician Emergency Provider Admitting clinician: Jonathan Cody Consults: 05/07/21 08:00 Pulmonology Consult [Consult to Pulmonology] [CONS] Routine Consulting Provider: Adair Christianson Reason For Consult: covid-19 and resp failure 05/16/21 11:00 Cardiology Consult [Consult to Cardiology] [CONS] Routine Consulting Provider: Cardiology Reason For Consult: s/p CODE BLUE Pronouncing clinician: Jonathan Cody Discharge Sum: Diag - PCOD Cause of : Pneumonia (DUE TO COVID) Discharge Sum: Summary - Date and Time Date of admission: 05/06/21 23:20 Date of : 05/17/21 Time of : 13:15 - Hospital Course prior to Hospital Course Information: Admitted w/hypoxia and declining respiratory function. CTA demonstrated infiltrative disease. CRP signif elevated. Cardiopulmonary arrest 05-16-21 with CPR and epi Renal function declined progressively. Family elected for comfort care as she progressively declined. - Summary Details: see pronouncement - Additional Data Confirmation of as documented by pronouncing clinician: no pulse, no respirations, no heart sounds, pupils fixed and dilated Family: at bedside Attending/PCP notified?: Yes Attending physician: Jonathan Cody MD Was code activated?: No Autopsy requested?: No senior examiner notified?: No Organ bank notified?: No Advance directives: No Hospice patient?: No
== END 2021-05-17 14:50 | disposition expired | DRG 207 ==
LOC: ER 22:52 → 2ND 22:54
PROVIDERS: Emergency Medicine; Internal Medicine Pulmonary Disease; Nurse Practitioner Family; Admitting Provider Emergency Medicine; Emergency Provider Emergency Medicine; Visit Provider Family Medicine
DX: U07.1 COVID-19 (principal); J12.82 Pneumonia due to coronavirus disease 2019; J96.01 Acute respiratory failure with hypoxia; N17.9 Acute kidney failure, unspecified; I10 Essential (primary) hypertension; E11.9 Type 2 diabetes mellitus without complications; I46.9 Cardiac arrest, cause unspecified; I48.91 Unspecified atrial fibrillation; E87.5 Hyperkalemia; E66.9 Obesity, unspecified; Z68.37 Body mass index [BMI] 37.0-37.9, adult
CPT/HCPCS: 31500; 94002; 36415; 71045; 71275; 80048; 80053; 81001; 82009; 82272; 82803; 82962; 83605; 83690; 83735; 84478; 84484; 85007; 85025; 86140; 87040; 87070; 87081; 87086; 87205; 93005; 94003; 94640; 94660; 94760; 94761; 96365; 96375; 99285; C9803; G0328; J1335; J2704; Q9967; U0003; U0005